=== PATIENT | female | born 1945 | race Caucasian/White ===

== ENCOUNTER 2022-05-09 09:08 | Outpatient (RCR) | payer MEDICARE, SELFPAY ==
--- NOTE | 2022-05-09 14:54 | PT.OPEX ---
PT [place] Outpatient Eval PT [facility] Outpatient Eval Start: 05/09/22 12:56 Freq: Status: Active Protocol: Document 05/09/22 12:56 CASTILLO (Rec: 05/09/22 13:07 CASTILLO [id number]) E-signed By RAY CoburnT Physical Therapy Outpatient Evaluation Insurance Information Recert Due Date 08/07/22 Insurance Name Medicare B,Blue Cross/Blue Shield Medical Diagnosis L knee OA L TKA 05/16/22 Treating Diagnosis L knee pain, impaired L knee ROM, limited tolerance for extended standing/walking, limping/antalgic gait Referring MD Wesley Subjective Subjective Patient reports chronic L knee pain leading up to L TKA scheduled for next week, . Patient reports standing, walking, activities are limited by pain. She has hx of bilateral knee scopes years ago. Lives along in a rambler home in [place]. 2 stairs to enter from the garage, no railing. Once inside, patient able to stay on main level. She will have her son stay with her the first night after d/c home and then a REQUIREMENTS ANALYST friend will be able to stay and help the next night. Currently planning to have her OP PT here in [facility] but that may change. Date of Last Physician Visit 03/30/22 Date of Surgery (If applicable) 05/16/22 Current Work Status Retired Assessment Assessment/Impression Patient is a 76 year old female with L knee pain, impaired L knee ROM, limited tolerance for extended standing/walking, limping/ antalgic gait. She is scheduled for L TKA 05/16/22. Patient seen in PT today for pre-op session to provide education/information on upcoming TKA surgery, safety information/HO, equipment instruction including use of FWW, and instruction in TKA exercises. Handouts issued for exercises, patient to perform them leading up to surgery. Reviewed PT/OT plan during hospital stay and patient is scheduled for OP PT post op. She lives in [place] and may change her post op PT to closer to home - currently scheduled here in [facility]. Patient lives in a rambler home. 2 stairs to enter from the garage, no railing. Once inside, patient can stay on the main level. Patient has a raised toilet seat, commode, shower chair, cane, and will borrow a FWW. She will have her son and a friend to stay with her the first few nights after surgery. L knee ROM is limited with 0-10-105 degrees this session. Patient to start doing the TKA exercises prior to surgery, HOs issued today. Patient would benefit from skilled PT for pain/sx management, improved knee ROM, improved knee/LE mobility/ strength, improved gait, balance/proprioception training, and establishment of HEP. Plan of Care Rehabilitation Potential Good Physical Therapy Goals 1. Patient will be educated in TKA pre/post-op safety, mobility, and exercises with HOs provided within one visit with patient returning to PT for post op treatment after L TKA surgery on 06/19/21. PT goals will be updated to TKA rehab goals when patient returns post op. Coordination/Communication With Referral Source Treatment Plan/Direct Interventions Gait Training,Manual Therapy, Neuromuscular Re-ed, Therapeutic Exercises Frequency/Duration one pre-op session 2x/week post TKA Patient Will Be Discharged From Therapy Completion of LTG(s),Skills Plateau,Independent w/HEP, Independently Progressing Evaluation Billing Untimed Code Treatment Minutes 36 Complexity Moderate Certification Information Initial Certification Date 05/09/22 Ending Certification Date 08/07/22 Provider Signature Shows Agreement With POC & Medical Necessity Physician Signature & Date Requested Please Sign/Date Here Physician Comment/Change : Physician NPI Number #
== END 2022-07-06 11:14 | disposition home or self-care (01) ==
PROVIDERS: PCP Orthopaedic Surgery Sports Medicine; Visit Provider Orthopaedic Surgery Sports Medicine
DX: M25.562 Pain in left knee (principal); Z96.652 Presence of left artificial knee joint; Z51.89 Encounter for other specified aftercare
CPT/HCPCS: 97162

== ENCOUNTER 2022-05-16 10:09 | Day surgery (SDC) | payer MEDICARE, SELFPAY ==
[2022-05-16] VITALS (37 sets, daily range): BP systolic 113–165; BP diastolic 55–100; PULSE 51–82; RESP 16–20; TEMP 36.3–37.2; O2SAT 73–100; BMI 34.7
[2022-05-16] MEDS: ACETAMINOPHEN 500 MG TABLET 1000 MG PO ×2 (10:40→17:57)
[2022-05-16] MEDS: OXYCODONE (CR) 10 MG TAB.ER.12H PO (10:40)
[2022-05-16] MEDS: LACTATED RINGERS 1000 ML 1,000 ML 100 ML IV (10:40)
[2022-05-16] MEDS: SODIUM CHLORIDE 0.9 % (FLUSH) 10 ML SYRINGE IVF (10:40)
[2022-05-16] MEDS: CELECOXIB 200 MG CAPSULE PO ×2 (10:40→21:05)
[2022-05-16] MEDS: MIDAZOLAM HCL 1 MG/ML inj IVP (12:02)
[2022-05-16] MEDS: fentaNYL 100 MCG/2 ML inj IVP (12:02)
--- NOTE | 2022-05-16 12:13 | SUR.PREOP ---
TIME?OUT:?1200 PT/Radha HENRIQUEZ RN/Mark Anthony RODRIGUEZ CUSTOMER SUPPORT ADVISOR?VERIFICATION?OF?SURGICAL?SITE,?PROCEDURE,?AND?CONSENT OBTAINED?PRIOR?TO?INVASIVE?PROCEDURE.
--- NOTE | 2022-05-16 13:11 | W.PM.NB ---
Nerve Block Nerve Block Time Seen by Provider: 12:00 Date Seen: 05/16/22 Type of block requested by surgeon for post-operative analgesia: geniculars and adductor canal Side: left Time out performed: Yes Verification of patient name: Yes Verification of date of : Yes Site marking: site marked Name of person performing procedure: gertrudis Continuous monitoring Was continuous monitoring of O2 sat, B/P, cardiac monitor technician, recorded every 15 minutes?: Yes Procedure Checklist: sterile prep, needles and gloves Ultrasound guided. Images saved: Yes Medications given in 5ml increments after negative aspiration: Ropivicaine %: 0.5 mL: 30 Needle gauge: 20 Decadron (mg): 10 Precedex (mcg): 25 Patient tolerated procedure well: Yes Block Charges Block Charge (with Pro Fee): Femoral Nerve Use of Ultrasound Machine for Block: Yes- US Guidance/pain block
--- NOTE | 2022-05-16 13:18 | CRLHL7_ITS ---
For Patients: As a result of the Cures Act, medical imaging exams and procedure reports are released immediately into your electronic medical record. You may view this report before your referring provider. If you have questions, please contact your health care provider. INDICATION: Post operative total knee arthroplasty TECHNIQUE: Knee radiograph 2 views left COMPARISON: 01/24/2021 FINDINGS: Bone: No acute fractures or aggressive bone lesions are identified. Joint: The patient is status post a total knee arthroplasty with patellar resurfacing. No significant knee effusion is seen. Soft tissue: Anterior skin, subcutaneous gas and joint gas are present from recent surgery. No radiopaque foreign bodies are seen. IMPRESSION: 1. There is an unremarkable postoperative appearance of the knee arthroplasty. Dictated by: Jun Torres MD @ 05/17/2022 13:00:55 (Electronically Signed)
--- NOTE | 2022-05-16 13:50 | SUR.OPER ---
Cement approved by MARY.
--- NOTE | 2022-05-16 14:35 | P.ORPRC_ITS ---
Procedure Note Date of procedure: 05/16/22 Procedure: PREOPERATIVE DIAGNOSIS: 1. Left knee osteoarthritis, primary, severe POSTOPERATIVE DIAGNOSIS: 1. Left knee osteoarthritis, primary, severe PROCEDURE: 1. Left total knee arthroplasty SURGEON: Clayton Olson MD. HUMAN RESOURCES FILE CLERK: Meño MCCRARY - Of note, a skilled expanded duty dental assistant was critical for this case to aid in patient positioning, tissue retraction, limb manipulation/positioning, and closure. ANESTHESIA: Mahamed anesthetic EBL: 50ml IMPLANTS: DePuy J&J all cemented TKA - Attune PS femur size 4 narrow, size 3 tibia, 5 poly spacer, 35 mm patella TOURNIQUET: 90 min at 300 torr COMPLICATIONS: None evident INDICATIONS: The patient is a pleasant 76-year-old female who has experienced severe left knee pain and difficulty bearing weight. Workup included x-rays which revealed severe osteoarthrosis in the knee. Given the deformity, the dysfunction, and the pain, as well as the failure of nonoperative management, recommendation was made for surgery. FINDINGS: Full-thickness chondral loss throughout all 3 compartments with large osteophytes, large posterior osteophytes, and even some loose bodies. Large effusion noted as well. DESCRIPTION OF PROCEDURE: Following a thorough discussion of risks, benefits, and alternatives consent was obtained and the left knee was marked. The patient was brought to the operating room and placed supine on the operating table. Induction of anesthesia was undertaken. 1 g IV Ancef and 1 g tranexamic acid was administered within 1 hr of incision preoperatively. Proper time-out was performed identifying proper patient, site, procedure. The operative extremity was prepped and draped in the appropriate sterile fashion using ChloraPrep after the patient was positioned supine with all bony prominences well padded. A longitudinal, anterior, midline skin incision was made starting approximately 3cm proximal to the superior pole of the patella and advanced distal to the tibial tubercle. A median parapatellar arthrotomy was created. A medial subp eriosteal sleeve was created with knife, allen elevator and curved osteotome. The retropatellar fatpad was resected and the synovium in the suprapatellar pouch excised to visualize the anterior femoral cortex. Femoral preparation was performed via an intramedullary guide. Step drill allowed access into the femoral canal. The distal cutting guide was placed with 6 ? of valgus and 11 mm cut on the distal femur due to flexion contracture of 10-12 degrees. Femur was sized using a anterior referencing guide in 3? of external rotation. This found have a best fit with the sizing noted above. The 4 in 1 cutting block was then placed, and the distal femur shaped accordingly. The box cut was then created and the trial implant inserted to confirm appropriate fit. We turned our attention to the proximal tibia. Extramedullary guide was utilized for cutting with the goal of being 90 degree cut from the mechanical axis of the tibia in the varus/valgus plane utilizing tibial crest as the luís zeenat alignment. Initially a 2 mm resection was performed from the medial tibial plateau. Ultimately, balancing was achieved in both flexion and extension in both varus and valgus. The knee was able to achieve full extension as well comfortably. The patella was initially measured and found have a thickness of 23 mm. It was resected back to approximately 14.5 mm. It was sized to be a best fit with as noted above. This was drilled, trial placed. All trials were placed and found to have an excellent stability and balance. At this stage, trial implants were removed, the knee was thoroughly irrigated with normal saline, and the cement was mixed. After irrigation, the knee was thoroughly dried, and cement placed, with the real tibial and femoral implants placed along with the patella. Trial poly spacer was placed and confirmed to have excellent range of motion and full extension, and the real poly spacer opened and inserted. All extra cement was removed, and a 3 min Betadine soak per formed. Finally, a final irrigation round with normal saline was performed. Closure performed with 0 PDS and #0 Stratafix for the quad tendon/retinaculum. 2-0 Vicryl/Stratafix for the subcutaneous and 4-0 Monocryl for subcuticular closure. Dressings were applied and the patient was awoken from anesthesia after the tourniquet deflated and transferred the PACU in stable condition. A skilled expanded duty dental assistant was critical for this case to aid in patient positioning, tissue retraction, bone exposure, limb manipulation/positioning, patient safety, and closure. PLAN: 1. Weight bear as tolerated operative extremity. 2. 23 hr perioperative antibiotics. 3. Ice. 4. PT/OT consults for ambulation assistance/mobility education. 5. Social work consult for discharge planning. 6. DVT prophylaxis with at SCDs, Ryan Hose, and aspirin twice daily.
--- NOTE | 2022-05-16 15:38 | W.ANESCHARGE ---
Anesthesia Charges Start Date/Time Anesthesia Start Date: 05/16/22 Anesthesia Start Time: 12:58 Stop Date/Time Anesthesia Stop Date: 05/16/22 Anesthesia Stop Time: 15:26 Summary Emergency: No Extremes of Age: Over 71-CPT [id number]
[2022-05-16] MEDS: LACTATED RINGERS 1000 ML 1,000 ML 75 ML IV (17:57)
--- NOTE | 2022-05-16 18:12 | P.IMCN_ITS ---
Date of Consult Consult date: 05/16/22 Primary Care Provider: Not a Local Provider Consult Narrative Narrative: HOSPITALIST CONSULT Hospital Day # 1 Post Op Day # 0 PROCEDURE: 1.? Left total knee arthroplasty SURGEON:? Clayton Olson MD. EBL: ? 50ml IMPLANTS:? DePuy J&J all cemented TKA - Attune TOURNIQUET:? 90 min at 300 torr COMPLICATIONS:? None evident The hospital medicine team was asked by Orthopedic team to manage the patient's hypertension and obesity status post left knee replacement There have been no perioperative concerns or questions. Patient is comfortable and interviewed and examined in her room on the evening of 05/16/2022. Patient denies any chest pain or palpitations. She is not short of breath. She is eating her dinner. We visited about her history working for [employer] and other aspects of her medical history. I updated the [facility] histories and Medications and Allergies in the Expanse tabs REVIEW OF SYSTEMS: 12-point ROS completed with patient and negative unless otherwise stated in HPI or below. PHYSICAL EXAM: CODE STATUS: FULL CODE CONSTITUTIONAL: Conversive, good historian. A/O. Knows setting and context. VITAL SIGNS: see record. HEENT: Normocephalic, atraumatic. PERRL, EOMI, conjunctivae pink, no scleral icterus. Ears and nose externally normal. Pharynx normal. NECK: No JVD. No carotid bruit, no thyromegaly, no adenopathy. CHEST: Clear to auscultation bilaterally HEART: No harsh murmurs. S1/S2. ABDOMEN: Flat, soft, nontender. Normal bowel sounds. Moderately obese. EXTREMITIES: No edema. MUSCULOSKELETAL: Left knee surgical dressing in place. No obvious hematoma. Neurovascularly intact. NEURO: Cranial nerves intact. Normal affect. No gross deficits. Speech intelligible. SKIN: No rashes, petechiae, concerning changes PSYCHIATRIC: Euthymic. INVESTIGATIONS: EMR Reviewed DISPOSITION: MedSurg Recovery; Discharge tomorrow DVT: Agree with ortho plan for DVT prevention, aspirin 81 mg b.i.d. GI: PO intake [facility] Medical History Hyperlipidemia Hypertension Obesity Osteoarthritis of left knee Osteopenia Surgical History History of breast biopsy History of medial meniscus repair of left knee (12/04/00) History of tubal ligation Status post medial meniscectomy of right knee (03/29/05) Status post total knee replacement, left Family History Sister Diabetes Cancer Mother Cancer Social History Smoking Status: Never smoker Do you use any of these nicotine containing products: None How often do you have a drink containing alcohol: monthly or less Alcohol type: wine How many standard drinks containing alcohol do you have on a typical day: 1 or 2 How often do you have six or more drinks on one occasion: Never AUDIT-C Alcohol total score: 1 Non-prescribed substance use: denies use Caffeine: Yes (coffee 2-3/day) Are you using contraception or practicing any form of control: No Meds Home Medications and Allergies Home Medications Medication Instructions Recorded Confirmed Type lisinopril 20 1 tab PO DAILY 03/30/22 05/16/22 History mg-hydrochlorothiazide 12.5 mg tablet naproxen 250 mg tablet 250 mg PO BID 05/07/22 05/16/22 History Allergies Allergy/AdvReac Type Severity Reaction Status Date / Time Penicillins Allergy throat Verified 05/16/22 10:44 swelling Exam Const: Vital Signs, click to edit/add: Vital Signs - 24 hr 05/16/22 10:45 05/16/22 12:01 05/16/22 12:05 Temperature 97.9 F Pulse Rate 71 57 L 57 L Respiratory Rate 18 16 16 Blood Pressure 160/78 H 142/68 H 124/58 L Pulse Oximetry 97 98 100 Oxygen Delivery Me thod Room Air Nasal Cannula Nasal Cannula Oxygen Flow Rate 2 2 05/16/22 12:10 05/16/22 12:15 05/16/22 15:34 Temperature 97.6 F Pulse Rate 61 56 L Respiratory Rate 16 16 Blood Pressure 119/69 113/55 L Pulse Oximetry 99 99 Oxygen Delivery Me thod Nasal Cannula Nasal Cannula Oxygen Flow Rate 2 2 05/16/22 15:43 05/16/22 15:53 05/16/22 15:25 Temperature 98.6 F 99.0 F Pulse Rate Respiratory Rate Blood Pressure 165/91 H Pulse Oximetry Oxygen Delivery Me thod Room Air Oxygen Flow Rate 05/16/22 15:28 05/16/22 15:30 05/16/22 15:31 Temperature Pulse Rate 82 77 77 Respiratory Rate Blood Pressure 138/100 H Pulse Oximetry 73 L 94 95 Oxygen Delivery Me thod Oxygen Flow Rate 05/16/22 15:32 05/16/22 15:33 05/16/22 15:34 Temperature Pulse Rate 67 72 71 Respiratory Rate Blood Pressure 131/100 H Pulse Oximetry 96 93 98 Oxygen Delivery Me thod Oxygen Flow Rate 05/16/22 15:36 05/16/22 15:38 05/16/22 15:39 Temperature Pulse Rate 68 70 69 Respiratory Rate Blood Pressure 133/86 Pulse Oximetry 97 98 98 Oxygen Delivery Me thod Oxygen Flow Rate 05/16/22 15:40 05/16/22 15:42 05/16/22 15:43 Temperature Pulse Rate 67 64 68 Respiratory Rate Blood Pressure 140/86 H Pulse Oximetry 97 97 98 Oxygen Delivery Me thod Oxygen Flow Rate 05/16/22 15:44 05/16/22 15:46 05/16/22 15:48 Temperature Pulse Rate 63 62 55 L Respiratory Rate Blood Pressure 136/89 Pulse Oximetry 98 98 96 Oxygen Delivery Me thod Oxygen Flow Rate 05/16/22 15:49 05/16/22 15:50 05/16/22 15:52 Temperature Pulse Rate 51 L 58 L 56 L Respiratory Rate Blood Pressure Pulse Oximetry 97 97 98 Oxygen Delivery Me thod Oxygen Flow Rate 05/16/22 15:53 Temperature 99.0 F Pulse Rate 58 L Respiratory Rate Blood Pressure 141/81 H Pulse Oximetry 98 Oxygen Delivery Me thod Oxygen Flow Rate Assessment and Plan Assessment and plan (1) Status post total knee replacement, left: Problem comment: -hospital medicine team is happy to follow this patient through to discharge. There been no perioperative concerns or complications. I suspect a routine postoperative course with discharge tomorrow. I reviewed the DVT prophylaxis plan and him in agreement. I will likely hold her hypertensive meds which can be resume once she is home. May 2022 Status: Acute (2) Hypertension: Problem comment: Lisinopril hydrochlorothiazide - will hold her meds unless hypertensive Status: Acute (3) Osteoarthritis of left knee: Problem comment: severe, primary Status: Acute
[2022-05-16] MEDS: OXYCODONE 5 MG TABLET PO ×2 (19:25→21:04)
[2022-05-16] MEDS: SENNOSIDES 1 TAB TABLET 2 TAB PO (21:03)
[2022-05-16] MEDS: ASPIRIN 81 MG TABLET EC PO (21:03)
--- NOTE | 2022-05-16 22:29 | PC.NURSE ---
Patient to floor at 1600. Rates pain 1-07/20. PRN Oxycodone for relief. Cryocuff in place. CMS intact. Dressing to L. knee C/D/I. Tolerating regular diet. Denies N/V. A1/walker/GB.
[2022-05-17] MEDS: ACETAMINOPHEN 500 MG TABLET 1000 MG PO ×3 (00:18→11:46)
[2022-05-17 03:00] VITALS: BP 127/61; PULSE 77; RESP 18; TEMP 36.6; O2SAT 100
--- NOTE | 2022-05-17 06:58 | PC.NURSE ---
Shift note: Pt, post op day 1 is doing well. Tolerating liberal fluid very well. No N/V noted. Able to make about 600ml of urine this shift. Ambulate with A1 to and from the BR. Pt tolerating pain very, pain level has been rated between 1 and 4. No PRN med requested. Vitally stable. Pt able to pass gas this morning.
[2022-05-17 07:00] VITALS: BP 130/60; PULSE 65; RESP 16; TEMP 36.2; O2SAT 100
[2022-05-17 07:07] LABS: Hematocrit 38.1 % (33.0-51.0); Hemoglobin* 12.3 gm/dL (12.0-16.0); Immature Granulocytes Pct Auto 0.3 %; Lymphocytes Percent Auto 12.5 % (20-44); Mean Corpuscular HGB Conc 32 gm/dL (32-36); Mean Corpuscular Hemoglobin 30 pg (26-34); Mean Corpuscular Volume 94 fL (80-100); Monocytes Percent Auto 7.2 % (0.0-11.0); Platelet Count* 175 K/uL (140-440); RDW Coefficient of Variation % 13.5 % (11.5-15.5); Red Blood Count 4.06 m/uL (4.00-5.20); White Blood Count* 11.19 K/uL (4.50-11.00)
[2022-05-17 07:12] LABS: Slide Review Reflex No
[2022-05-17 07:21] LABS: Potassium* 4.2 mmol/L (3.6-5.1); Sodium* 139 mmol/L (135-149)
[2022-05-17 07:24] LABS: Blood Urea Nitrogen* 21 mg/dL (7-30); Creatinine* 0.7 mg/dL (0.5-1.5); Est. Creatinine Clearance* 38.44; Estimated Glomerular Filt Rate 90 ml/min
[2022-05-17] MEDS: CELECOXIB 200 MG CAPSULE PO (08:18)
[2022-05-17] MEDS: SENNOSIDES 1 TAB TABLET 2 TAB PO (08:18)
[2022-05-17] MEDS: OXYCODONE 5 MG TABLET PO ×2 (08:18→13:20)
[2022-05-17] MEDS: ASPIRIN 81 MG TABLET EC PO (08:18)
[2022-05-17] MEDS: SODIUM CHLORIDE 0.9 % (FLUSH) 10 ML SYRINGE 5 ML IVF (08:19)
[2022-05-17 10:55] VITALS: BP 141/81; PULSE 56; RESP 16; TEMP 36.2
--- NOTE | 2022-05-17 11:08 | PM.ORPN ---
Subjective Subjective Date Seen: 05/17/22 Principal diagnosis: Status postop day 1 left total knee arthroplasty Interval history: Patient reports doing well. No acute events over night. Reports that her pain is not bad at all. Pain managed with scheduled /PRN medications and ice. DVT prophylaxis 81 mg aspirin by mouth twice daily, bilateral knee high Ryan stockings, and SCDs. Denies fevers, chills, aches, N/V, CP, SOB/FRANKS, or lightheadedness. She reports having a good appetite. She is surprised how good her appetite is as well as how little pain she is experiencing. Ortho Exam Narrative Exam Narrative: -Patient appears comfortable; no apparent acute distress -Alert and oriented times 3 -Operative knee moderately swollen; soft tissues supple; no ecchymosis; no erythematous streaking Warmth appropriate -Surgical dressing clean, dry, intact; no drainage -Bilateral calfs soft; no significant swelling, edema, erythema, discoloration, warmth, or palpable cords. Slightly tender at the left mid posterior calf, not exquisite (tissues are soft and supple over this region) -2+ DP/PT pulses, intact dermatomes and myotomes distally (5/5 strength) Const Vital Signs, click to edit/add: Vital Signs - 24 hr 05/16/22 12:01 05/16/22 12:05 05/16/22 12:10 Temperature Pulse Rate 57 L 57 L 61 Pulse Rate [Pulse Oximeter] Respiratory Rate 16 16 16 Blood Pressure 142/68 H 124/58 L 119/69 Blood Pressure [Right Arm] Pulse Oximetry 98 100 99 Oxygen Delivery Method Nasal Cannula Nasal Cannula Nasal Cannula Oxygen Flow Rate 2 2 2 05/16/22 12:15 05/16/22 15:34 05/16/22 15:43 Temperature 97.6 F 98.6 F Pulse Rate 56 L Pulse Rate [Pulse Oximeter] Respiratory Rate 16 Blood Pressure 113/55 L Blood Pressure [Right Arm] Pulse Oximetry 99 Oxygen Delivery Method Nasal Cannula Room Air Oxygen Flow Rate 2 05/16/22 15:53 05/16/22 15:25 05/16/22 15:28 Temperature 99.0 F Pulse Rate 82 Pulse Rate [Pulse Oximeter] Respiratory Rate Blood Pressure 165/91 H Blood Pressure [Right Arm] Pulse Oximetry 73 L Oxygen Delivery Method Oxygen Flow Rate 05/16/22 15:30 05/16/22 15:31 05/16/22 15:32 Temperature Pulse Rate 77 77 67 Pulse Rate [Pulse Oximeter] Respiratory Rate Blood Pressure 138/100 H 131/100 H Blood Pressure [Right Arm] Pulse Oximetry 94 95 96 Oxygen Delivery Method Oxygen Flow Rate 05/16/22 15:33 05/16/22 15:34 05/16/22 15:36 Temperature Pulse Rate 72 71 68 Pulse Rate [Pulse Oximeter] Respiratory Rate Blood Pressure Blood Pressure [Right Arm] Pulse Oximetry 93 98 97 Oxygen Delivery Method Oxygen Flow Rate 05/16/22 15:38 05/16/22 15:39 05/16/22 15:40 Temperature Pulse Rate 70 69 67 Pulse Rate [Pulse Oximeter] Respiratory Rate Blood Pressure 133/86 Blood Pressure [Right Arm] Pulse Oximetry 98 98 97 Oxygen Delivery Method Oxygen Flow Rate 05/16/22 15:42 05/16/22 15:43 05/16/22 15:44 Temperature Pulse Rate 64 68 63 Pulse Rate [Pulse Oximeter] Respiratory Rate Blood Pressure 140/86 H Blood Pressure [Right Arm] Pulse Oximetry 97 98 98 Oxygen Delivery Method Oxygen Flow Rate 05/16/22 15:46 05/16/22 15:48 05/16/22 15:49 Temperature Pulse Rate 62 55 L 51 L Pulse Rate [Pulse Oximeter] Respiratory Rate Blood Pressure 136/89 Blood Pressure [Right Arm] Pulse Oximetry 98 96 97 Oxygen Delivery Method Oxygen Flow Rate 05/16/22 15:50 05/16/22 15:52 05/16/22 15:53 Temperature 99.0 F Pulse Rate 58 L 56 L 58 L Pulse Rate [Pulse Oximeter] Respiratory Rate Blood Pressure 141/81 H Blood Pressure [Right Arm] Pulse Oximetry 97 98 98 Oxygen Delivery Method Oxygen Flow Rate 05/16/22 16:45 05/16/22 16:00 05/16/22 16:15 Temperature 97.4 F L 97.4 F L 97.4 F L Pulse Rate 56 L Pulse Rate [Pulse Oximeter] 56 L 53 L Respiratory Rate 16 16 18 Blood Pressure Blood Pressure [Right Arm] 132/85 132/85 125/62 Pulse Oximetry 98 99 Oxygen Delivery Method Room Air Room Air Room Air Oxygen Flow Rate 05/16/22 16:30 05/16/22 16:45 05/16/22 17:00 Temperature 97.4 F L 97.6 F 97.6 F Pulse Rate Pulse Rate [Pulse Oximeter] 52 L 57 L 56 L Respiratory Rate 18 18 16 Blood Pressure Blood Pressure [Right Arm] 127/61 133/79 136/60 Pulse Oximetry 96 99 99 Oxygen Delivery Method Room Air Room Air Room Air Oxygen Flow Rate 2 05/16/22 17:30 05/16/22 18:00 05/16/22 19:00 Temperature 97.6 F 97.6 F 97.6 F Pulse Rate Pulse Rate [Pulse Oximeter] 62 63 69 Respiratory Rate 16 16 18 Blood Pressure Blood Pressure [Right Arm] 129/61 129/74 142/75 H Pulse Oximetry 100 100 100 Oxygen Delivery Method Room Air Room Air Room Air Oxygen Flow Rate 05/16/22 20:00 05/16/22 21:00 05/16/22 22:00 Temperature 97.6 F 98.0 F 98.0 F Pulse Rate Pulse Rate [Pulse Oximeter] 69 71 73 Respiratory Rate 16 20 18 Blood Pressure Blood Pressure [Right Arm] 132/78 126/77 129/61 Pulse Oximetry 98 100 100 Oxygen Delivery Method Room Air Room Air Room Air Oxygen Flow Rate 05/16/22 23:00 05/16/22 23:00 05/17/22 03:00 Temperature 97.5 F L 97.9 F Pulse Rate Pulse Rate [Pulse Oximeter] 77 77 Respiratory Rate 18 18 Blood Pressure Blood Pressure [Right Arm] 127/61 127/61 Pulse Oximetry 100 100 100 Oxygen Delivery Method Room Air Room Air Oxygen Flow Rate 05/17/22 07:00 05/17/22 07:00 05/17/22 10:55 Temperature 97.2 F L 97.2 F L Pulse Rate 56 L Pulse Rate [Pulse Oximeter] 65 Respiratory Rate 16 16 Blood Pressure 141/81 H Blood Pressure [Right Arm] 130/60 Pulse Oximetry 100 100 Oxygen Delivery Method Room Air Oxygen Flow Rate Assessment and Plan Assessment and plan (1) Status post total knee replacement, left: Problem details: POD 1 left total knee arthroplasty Status: Acute (2) Hypertension: Problem details: Lisinopril hydrochlorothiazide - will hold her meds unless hypertensive Status: Acute (3) Osteoarthritis of left knee: Problem details: severe, primary Status: Acute Plan - Complete 23 hour perioperative antibiotics. - PT/OT consult for education and assistance. - Social work consult for discharge planning - Prescribed analgesics as needed - DVT prophylaxis: 81 mg aspirin by mouth twice daily, bilateral knee high Ryan Hose stockings and SCDs - Anticipation is for discharge to home 05/17/2022 if the patient remains medically stable, pain is controlled, and they are safe with mobilization.
--- NOTE | 2022-05-17 11:12 | P.DS_ITS ---
DS: Providers Provider Date Seen: 05/17/22 Date of admission: Med/Surg Recovery 05/16/2022 Primary care physician: Not a Local Provider Consults: 05/16/22 16:37 Consult to Occupational Therapy [CONS] Routine Comment: Reason(s) for OT Consult:: ADLs Prior to Discharge Any Restrictions?:: See Comment Comment: See nursing activity order for any restrictions. Consult to Physical Therapy [CONS] Routine Comment: Ambulate in the albert today. Reason(s) for PT Consult:: TKA TX Protocol POD#0 Any Restrictions?:: See Comment Comment: See nursing activity order for any restrictions. Consult to Physician [CONS] Routine Comment: Consulting Provider: Hospitalists Has provider been notified: No Consult to Magnetic Healer [CONS] Routine Comment: Reason for Consult:: Discharge Planning Needs Attending Physician on discharge: Clayton Olson MD Date of Discharge: 05/17/22 DS: Diagnosis Discharge Diagnosis (1) Osteoarthritis of left knee: Status: Acute Problem details: Status postoperative left total knee arthroplasty (05/16/2022) DS: Summary Hospital Course Hospital Course: The patient has a history of left knee osteoarthritis, primary, severe. After appropriate preoperative evaluation, the patient underwent left total knee arthroplasty. Postoperatively given anticoagulation for deep vein thrombosis prophylaxis. They progressed to PT/OT and were felt ready and prepared for discharge to home with appropriate pain medication and anticoagulation medicat ions. Status at Discharge Functional status at discharge: uses cane/walker Overall status at discharge: patient is progressing back to baseline Time Spent with Patient Time attestation: Total time spent providing and/or coordinating discharge services: Time spent: Less than 30 minutes Exam Const: Vital Signs, click to edit/add: Vital Signs - 24 hr 05/16/22 12:01 05/16/22 12:05 05/16/22 12:10 Temperature Pulse Rate 57 L 57 L 61 Pulse Rate [Pulse Oximeter] Respiratory Rate 16 16 16 Blood Pressure 142/68 H 124/58 L 119/69 Blood Pressure [Ri ght Arm] Pulse Oximetry 98 100 99 Oxygen Delivery Me thod Nasal Cannula Nasal Cannula Nasal Cannula Oxygen Flow Rate 2 2 2 05/16/22 12:15 05/16/22 15:34 05/16/22 15:43 Temperature 97.6 F 98.6 F Pulse Rate 56 L Pulse Rate [Pulse Oximeter] Respiratory Rate 16 Blood Pressure 113/55 L Blood Pressure [Ri ght Arm] Pulse Oximetry 99 Oxygen Delivery Me thod Nasal Cannula Room Air Oxygen Flow Rate 2 05/16/22 15:53 05/16/22 15:25 05/16/22 15:28 Temperature 99.0 F Pulse Rate 82 Pulse Rate [Pulse Oximeter] Respiratory Rate Blood Pressure 165/91 H Blood Pressure [Ri ght Arm] Pulse Oximetry 73 L Oxygen Delivery Me thod Oxygen Flow Rate 05/16/22 15:30 05/16/22 15:31 05/16/22 15:32 Temperature Pulse Rate 77 77 67 Pulse Rate [Pulse Oximeter] Respiratory Rate Blood Pressure 138/100 H 131/100 H Blood Pressure [Ri ght Arm] Pulse Oximetry 94 95 96 Oxygen Delivery Me thod Oxygen Flow Rate 05/16/22 15:33 05/16/22 15:34 05/16/22 15:36 Temperature Pulse Rate 72 71 68 Pulse Rate [Pulse Oximeter] Respiratory Rate Blood Pressure Blood Pressure [Ri ght Arm] Pulse Oximetry 93 98 97 Oxygen Delivery Me thod Oxygen Flow Rate 05/16/22 15:38 05/16/22 15:39 05/16/22 15:40 Temperature Pulse Rate 70 69 67 Pulse Rate [Pulse Oximeter] Respiratory Rate Blood Pressure 133/86 Blood Pressure [Ri ght Arm] Pulse Oximetry 98 98 97 Oxygen Delivery Me thod Oxygen Flow Rate 05/16/22 15:42 05/16/22 15:43 05/16/22 15:44 Temperature Pulse Rate 64 68 63 Pulse Rate [Pulse Oximeter] Respiratory Rate Blood Pressure 140/86 H Blood Pressure [Ri ght Arm] Pulse Oximetry 97 98 98 Oxygen Delivery Me thod Oxygen Flow Rate 05/16/22 15:46 05/16/22 15:48 05/16/22 15:49 Temperature Pulse Rate 62 55 L 51 L Pulse Rate [Pulse Oximeter] Respiratory Rate Blood Pressure 136/89 Blood Pressure [Ri ght Arm] Pulse Oximetry 98 96 97 Oxygen Delivery Me thod Oxygen Flow Rate 05/16/22 15:50 05/16/22 15:52 05/16/22 15:53 Temperature 99.0 F Pulse Rate 58 L 56 L 58 L Pulse Rate [Pulse Oximeter] Respiratory Rate Blood Pressure 141/81 H Blood Pressure [Ri ght Arm] Pulse Oximetry 97 98 98 Oxygen Delivery Me thod Oxygen Flow Rate 05/16/22 16:45 05/16/22 16:00 05/16/22 16:15 Temperature 97.4 F L 97.4 F L 97.4 F L Pulse Rate 56 L Pulse Rate [Pulse Oximeter] 56 L 53 L Respiratory Rate 16 16 18 Blood Pressure Blood Pressure [Ri ght Arm] 132/85 132/85 125/62 Pulse Oximetry 98 99 Oxygen Delivery Me thod Room Air Room Air Room Air Oxygen Flow Rate 05/16/22 16:30 05/16/22 16:45 05/16/22 17:00 Temperature 97.4 F L 97.6 F 97.6 F Pulse Rate Pulse Rate [Pulse Oximeter] 52 L 57 L 56 L Respiratory Rate 18 18 16 Blood Pressure Blood Pressure [Ri ght Arm] 127/61 133/79 136/60 Pulse Oximetry 96 99 99 Oxygen Delivery Me thod Room Air Room Air Room Air Oxygen Flow Rate 2 05/16/22 17:30 05/16/22 18:00 05/16/22 19:00 Temperature 97.6 F 97.6 F 97.6 F Pulse Rate Pulse Rate [Pulse Oximeter] 62 63 69 Respiratory Rate 16 16 18 Blood Pressure Blood Pressure [Ri ght Arm] 129/61 129/74 142/75 H Pulse Oximetry 100 100 100 Oxygen Delivery Me thod Room Air Room Air Room Air Oxygen Flow Rate 05/16/22 20:00 05/16/22 21:00 05/16/22 22:00 Temperature 97.6 F 98.0 F 98.0 F Pulse Rate Pulse Rate [Pulse Oximeter] 69 71 73 Respiratory Rate 16 20 18 Blood Pressure Blood Pressure [Ri ght Arm] 132/78 126/77 129/61 Pulse Oximetry 98 100 100 Oxygen Delivery Me thod Room Air Room Air Room Air Oxygen Flow Rate 05/16/22 23:00 05/16/22 23:00 05/17/22 03:00 Temperature 97.5 F L 97.9 F Pulse Rate Pulse Rate [Pulse Oximeter] 77 77 Respiratory Rate 18 18 Blood Pressure Blood Pressure [Ri ght Arm] 127/61 127/61 Pulse Oximetry 100 100 100 Oxygen Delivery Me thod Room Air Room Air Oxygen Flow Rate 05/17/22 07:00 05/17/22 07:00 05/17/22 10:55 Temperature 97.2 F L 97.2 F L Pulse Rate 56 L Pulse Rate [Pulse Oximeter] 65 Respiratory Rate 16 16 Blood Pressure 141/81 H Blood Pressure [Ri ght Arm] 130/60 Pulse Oximetry 100 100 Oxygen Delivery Me thod Room Air Oxygen Flow Rate DS: Data Data Completed and Pending Labs on day of discharge: Labs from last 24 hours 05/17/22 05/17/22 06:25 06:25 WBC 11.19 H RBC 4.06 Hgb 12.3 Hct 38.1 MCV 94 MCH 30 MCHC 32 RDW Coeff of Gio 13.5 Plt Count 175 Neut % (Auto) 80.0 H Lymph % (Auto) 12.5 L [place] % (Auto) 7.2 Eos % (Auto) 0.0 Baso % (Auto) 0.0 Neut # (Auto) 9.00 H Lymph # (Auto) 1.40 [place] # (Auto) 0.80 Eos # (Auto) 0.00 Baso # (Auto) 0.00 Sodium 139 Potassium 4.2 BUN 21 Creatinine 0.7 Estimated Creat Clear 38.44 Estimated GFR 90 Discharge Plan Discharge Disposition: Home, Self-Care Discharging Surgeon: Clayton Olson Follow-Up Appointment: 1 week PO with HERMANN Prescriptions: New acetaminophen 500 mg capsule 500 - 1,000 mg PO Q6H MDD 4000mg PRNQty: 100 0RF aspirin 81 mg tablet,delayed release (DR/EC) 81 mg PO BID Qty: 60 0RF Rx Instructions: Medication to help prevent blood clots postoperatively; take TWICE daily. sennosides-docusate sodium [Senna-S] 8.6-50 mg tablet 1 - 4 tab-cap PO BID PRN (Reason: constipation) Qty: 60 0RF Rx Instructions: Hold medication if experiencing loose stools. celecoxib 100 mg capsule 100 mg PO BID Qty: 60 0RF oxycodone 5 mg tablet 2.5 - 5 mg PO Q4-6H MDD 6 PRN (Reason: pain) Qty: 42 0RF Rx Instructions: Take as needed for postop pain: 2.5mg mild pain, 5mg moderate-severe pain; wean as tolerated. Continued lisinopril-hydrochlorothiazide 20-12.5 mg tablet 1 tab PO DAILY Label Comments: TAKE 1 TABLET BY MOUTH DAILY. naproxen 250 mg tablet 250 mg PO BID Activity Level: Activity as Tolerated, Weight Bearing as Tolerated, Use Cane and Use Walker Activity Detail: Wound: ?Do not remove original dressing; we will remove this at first postop visit in 1 week. Only remove dressing if integrity is in question. ?No immersing wound in water; showering okay; light scrub with your hand and body soap, rinse, dab dry ?Sutures are under the skin, will dissolve; allow surgical glue to come off naturally; do not scrub the wound or apply ointments/lotions ?Call our office with any redness that streaks, excessive drainage from the wound, or wound gapping. Ice/Elevate: ?Ice as needed for swelling and discomfort (cryocuff or ice pack); elevate frequently above the heart MAGDA socks: ?Wear for 1 month, remove for 1 hour 3 times per day ?These are frustrating to take on/off, but are important for blood clot prevention for 1 month after surgery Blood Clot Prevention (DVT): ?Medication: 81 mg aspirin by mouth twice daily (1 month) Driving: ?Do not drive while taking narcotic pain medication ?Anticipate 4-6 weeks no driving if operative leg is driving leg Dental: ?No elective dental work for 6 months post-op. If there is an urgent/emergent dental need, contact our office for an antibiotic prescription. Smoking/Alcohol: ?Do not smoke; do no drink alcohol especially when taking postoperative oral narcotic medication Seek Care from you Primary Care Provider if you experience the following issues in the postoperative phase and beyond: ?Bacterial infections such as: pneumonia, bacterial skin infection (cellulitis), UTI, high fever, chills unrelated to the operative body part - call your primary care physician urgently for treatment in hopes to protect your health and the metal implant. Referrals: ?PT, OT per patient preference - evaluate treat total knee arthroplasty protocol (gait training, ROM, ADLs) Follow up: ?Ortho surgeon follow-up in 6 weeks; repeat radiographs three views operative knee ?PA-C visit in 1 week *If there are any acute concerns regarding your surgery, please call our orthopedic clinic ([phone]) Discharge Diet: Regular Patient Instructions: Acetaminophen (By mouth), Aspirin (By mouth), Oxycodone, Rapid Release (By mouth), Celecoxib (By mouth), Senna (By mouth), Knee Replacement (DC) Forms: Work/School Release Follow-up: Physical [facility]me[facility] [Provider Group] - 05/18/22 2:30 pm Mahamed Wilder PA-C [Physician [facility]] - 05/24/22 10:10 am Discharge Orders: Discharge Order (Routine); Ordered 05/17/22 Ordered By: Mahamed Wilder Consulting provider completed their portion of the discharge: Yes
--- NOTE | 2022-05-17 15:04 | PC.SOCIAL ---
Met with pt to discuss discharge plans. Pt. plans to discharge home with a friend who is a retired geophysical laboratory supervisor and she will stay with pt. until the weekend. Pt.'s son's will stay with pt. over the weekend and then her friend will come back for a few more days the following week.
--- NOTE | 2022-05-17 15:10 | W.PM.CROSSCO ---
Subjective Subjective Date Seen: 05/17/22 Principal diagnosis: Status postop day 1 left total knee arthroplasty Interval history: Patient noted flushing today; timing potentially related to vancomycin vs oxycodone administration. She has had no GI distress, no wheezing, no shortness of breath, no tongue edema. Vital signs have remained stable. She has worked well with therapies and not have any lightheadedness or dizziness. She has never had oxycodone nor vancomycin in the past. Objective Objective Data Details: Patient is sitting comfortably at edge of bed, she is speaking in full sentences. Oropharynx is moist and clear, tongue protrudes midline and is not edematous. Cardiovascular exam exhibits regular rate and rhythm without murmurs rubs or gallops. Lungs are clear to auscultation bilaterally had any wheezes or crackles. Skin reveals mild flushing of chest and face. Assessment and Plan Assessment and plan (1) Flushing: Problem comment: - Likely iatrogenic, oxycodone vs vancomycin - patient did not want to take a Benadryl prior to discharge; did send and Benadryl for her to have at home in case she notices persistent symptoms on oxycodone. She has actually had quite adequate pain control Tylenol and is unsure if she will even need oxycodone regularly upon discharge Status: Acute Plan - See above
--- NOTE | 2022-05-17 15:32 | PC.NURSE ---
PATIENT DISCHARGED TO HOME WITH FRIENDS, UP SBA WITH WALKER BELT TOLERATING FAIRLY, DRESSING TO LEFT KNEE CDI, CYRO CUFF TO SITE, RATING PAIN 0 AT REST IN LEFT KNEE BUT INCREASES WITH MOVEMENT, PRN OXYCODONE AND SCHEDULED TYLENOL GIVEN WITH RELIEF, THIS AFTERNOON AROUND 1400 PATIENT FLUSHED, FEELING WARM, NO TEMP NOTED, UPDATED SEE ORDERS, PATIENT VERBALIZED UNDERSTANDING OF DISCHARGE INFORMATION AND HAD NO FURTHER QUESTIONS AT THIS TIME, LEFT VIA WHEELCHAIR AROUND 1515.
--- NOTE | 2022-05-18 21:29 | PC.SOCIAL ---
Received a message from charge nurse that pt called requesting a phone call back because [facility] did not have the paperwork they needed to begin services. Phone call to [facility] at [phone]. Staff informed this worker that they did not receive a referral packet with home health care orders from a MD and stated they only received a discharge summary of what pt should do at home for after care. [facility] is requesting referral with MD order. Completed face to face and had MD sign. Faxed referral to [facility] at [phone]. Confirmed with [facility] that the referral was received. No further information is requested. Phone call to pt. Informed pt that this worker sent all information that was requested from [facility] and confirmed it was received, so services could begin. Pt was thankful.
== END 2022-05-17 15:15 | disposition home or self-care (01) ==
LOC: OR 10:12 → MEDSURG 10:15
PROVIDERS: PCP Orthopaedic Surgery Sports Medicine; Visit Provider Orthopaedic Surgery Sports Medicine
PROC: (CPT 27447; principal; 2022-05-16 11:30)
DX: M17.12 Unilateral primary osteoarthritis, left knee (principal); M25.562 Pain in left knee; I10 Essential (primary) hypertension; E66.9 Obesity, unspecified; R23.2 Flushing; M85.80 Other specified disorders of bone density and structure, unspecified site; Z68.34 Body mass index [BMI] 34.0-34.9, adult
CPT/HCPCS: 27447; 01402; 36415; 64447; 73560; 76942; 80202; 82565; 84132; 84295; 84520; 85025; 97110; 97116; 97161; 97165; 97530; 99100; A9270; C1776; J1100; J2250; J2704; J2795; J3010; J3370; J7050; J7120

== ENCOUNTER 2023-05-29 08:50 | Day surgery (SDC) | payer MEDICARE, SELFPAY ==
[2023-05-29] VITALS (14 sets, daily range): BP systolic 120–165; BP diastolic 60–90; PULSE 52–561; RESP 15–20; TEMP 36.2–36.6; O2SAT 92–97; BMI 33.5
--- OUTSIDE RECORDS SUMMARY | 2023-05-29 09:03 | XMS_ITS | Clinical Summary ---
Author Name Unknown Organization [email or web address] Address [place], [place] [address] Care Team Providers Care Edge Sander Name Role Phone Jessica Trejo PA-C Primary Care Provider [phone] Allergies Active Allergy Reactions Criticality Noted Date Comments Penicillins Anaphylaxis High 01/10/2012 Medications Medication Sig Dispensed Refills Start Date End Date Status benzonatate (TESSALON) 100 mg capsuleIndications:B ronchitis Take 1 capsule by mouth 3 times daily if needed for Cough. 20 capsule 0 07/05/2019 Active Encounters Date Type Department Care Team Description 05/14/2023 5:12 PM CUT OFF MACHINE OPERATOR - 05/14/2023 9:45 PM CUT OFF MACHINE OPERATOR Emergency [address] [address] Joel Reeves MD Transient memory loss (Primary Dx); Vertigo Discharge Disposition: Home Self Care 05/14/2023 Travel from Last 3 Months Social History Tobacco Use Types Packs/Day Years Used Date Smoking Tobacco: Never Alcohol Use Standard Drinks/Week Comments Yes 0 (1 standard drink = 0.6 oz pur e alcohol) 1 every 6 months Sex and Gender Information Value Date Recorded Sex Assigned at Not on file Gender Identity Not on file Sexual Orientation Not on file Obstetrics History Last Filed Vital Signs Vital Sign Reading Time Taken Comments Blood Pressure 131/82 05/14/2023 9:20 PM CUT OFF MACHINE OPERATOR Pulse 59 05/14/2023 9:29 PM CUT OFF MACHINE OPERATOR Temperature 36.6 ??C (97.8 ??F) 05/14/2023 5:07 PM CS T Respiratory Rate 18 05/14/2023 5:07 PM CUT OFF MACHINE OPERATOR Oxygen Saturation 98% 05/14/2023 9:29 PM CUT OFF MACHINE OPERATOR Inhaled Oxygen Concentration - - Weight 77.1 kg (170 lb) 05/14/2023 5:07 PM CUT OFF MACHINE OPERATOR Height 157.5 cm (5' 2) 05/14/2023 5:07 PM CUT OFF MACHINE OPERATOR Body Mass Index 31.09 05/14/2023 5:07 PM CUT OFF MACHINE OPERATOR Plan of Treatment Health Maintenance Due Date Last Done Comments Tdap 1957 Depression screening for age 12+ 1958 Hepatitis C screening for ag e 18-79 1964 Tetanus booster 1966 Zoster (shingles) series for age 50+ (1 of 2) 1996 DEXA/DXA scan for age 65+ 08/15/2011 Pneumococcal series for age 65+ (1 of 1 - PCV) 08/15/2011 BMI (ht and wt on same day) for age 18+ 02/05/2017 02/06/2016 Influenza for age 65+ 01/11/2023 COVID-19 vaccine series Completed 03/07/20 23, 03/14/2022, 09/07/2021, Additional history exists Procedures Procedure Name Priority Date/Time Associated Diagnosis Comments TROPONIN T (HS) ONE TIME Timed 05/14/2023 7:58 PM CUT OFF MACHINE OPERATOR MR HEAD BRAIN WWO STAT 05/14/2023 7:4 2 PM CUT OFF MACHINE OPERATOR UA W/ SEDIMENT EXAM REFLEXED PER CRITERIA STAT 05/14/2023 5:58 PM CUT OFF MACHINE OPERATOR CT ANGIO HEAD NECK CAROTID STROKE PROTOCOL CHRISTOPHER CANDIDAT STAT 05/14/2023 5:34 PM CUT OFF MACHINE OPERATOR EKG 12 LEAD STAT 05/14/2023 5:31 PM CUT OFF MACHINE OPERATOR CBC WITH AUTO DIFFERENTIAL STAT 05/14/2023 5:20 PM CUT OFF MACHINE OPERATOR TROPONIN T (HS) ACUTE W/2HR REFLEX STAT 05/14/2023 5:20 PM CUT OFF MACHINE OPERATOR BASIC METABOLIC PANEL STAT 05/14/2023 5:20 PM CUT OFF MACHINE OPERATOR PROTIME-INR STAT 05/14/2023 5:20 PM CUT OFF MACHINE OPERATOR CBC WITH AUTO DIFFERENTIAL STAT 05/14/2023 5:20 PM CUT OFF MACHINE OPERATOR CT HEAD STROKE PROTOCOL WITHOUT CONTRAST STAT 05/14/2023 5:18 PM CUT OFF MACHINE OPERATOR from Last 3 Months Results * TROPONIN T (HS) ONE TIME (05/14/2023 7:58 PM CUT OFF MACHINE OPERATOR) TROPONIN T HS 7 6-10 ng/L ng/L 05/14/2023 8:29 PM CUT OFF MACHINE OPERATOR [facility] Blood BLOOD SPECIMEN / Unknown Non-Lab Butterfly / Unknown 05/14/2023 7:58 PM CUT OFF MACHINE OPERATOR 05/14/2023 8:09 PM CUT OFF MACHINE OPERATOR [place] [address] * MR BRAIN W/WO CONTRAST (05/14/2023 7:42 PM CUT OFF MACHINE OPERATOR) Anatomical Region Laterality Modality BRAIN, HEAD Magnetic Resonan ce 05/14/2023 8:04 PM CUT OFF MACHINE OPERATOR Impressions 05/14/2023 8:04 PM CUT OFF MACHINE OPERATOR 1. No acute intracranial abnormality. 2. Chronic lacunar infarctions right cerebellar hemisphere. 3. 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 4. Mild chronic microvascular ischemic changes and diffuse cerebral volume loss. Dictated by Orlando Reeves MD @ 05/14/2023 8:04:01 PM (Electronically Signed) Narrative 05/14/2023 8:04 PM CUT OFF MACHINE OPERATOR For Patients: ??As a result of the Century Cures Act, medical imaging exams and procedure reports are released immediately into your electronic medical record. ??You may view this report before your referring provider. ??If you have questions, please contact your health care provider. INDICATION: Confusion. TECHNIQUE: Multiplanar multisequence MR imaging of the brain prior to and following intravenous contrast. COMPARISON: CT brain 05/14/2023. FINDINGS: Mild diffuse cerebral volume loss. No mass effect or midline shift. Scattered FLAIR hyperintensities in the supratentorial white matter, typical for mild chronic microvascular ischemic changes. Small cavernous malformation within the lateral right frontal white matter measuring 4 mm (series 9, image 13) associated with susceptibility blooming. No recent intracranial hemorrhage or pathologic extra- axial fluid collection. No diffusion restriction to suggest acute infarction. No pathologic intracranial enhancement. Chronic lacunar infarctions right cerebellar hemisphere. The major arterial flow voids of the skullbase are preserved. The globes are symmetric. The paranasal sinuses are well aerated. The mastoid air cells are clear. Procedure Note Orlando Reeves MD - 05/14/2023 For Patients: As a result of the Cures Act, medical imagingexams and procedure reports are released immediately into your electronicmedical record. You may view this report before your referring provider.If you have questions, please contact your health care provider. INDICATION: Confusion. TECHNIQUE: Multiplanar multisequence MR imaging of the brain prior to and followingintravenous contrast. COMPARISON: CT brain 05/14/2023. FINDINGS: Mild diffuse cerebral volume loss. No mass effect or midline shift.Scattered FLAIR hyperintensities in the supratentorial white matter,typical for mild chronic microvascular ischemic changes. Small cavernousmalformation within the lateral right frontal white matter measuring 4 mm(series 9, image 13) associated with susceptibility blooming. No recentintracranial hemorrhage or pathologic extra- axial fluid collection. Nodiffusion restriction to suggest acute infarction. No pathologicintracranial enhancement. Chronic lacunar infarctions right cerebellarhemisphere. The major arterial flow voids of the skullbase are preserved. The globesare symmetric. The paranasal sinuses are well aerated. The mastoid aircells are clear. IMPRESSION: 1. No acute intracranial abnormality. 2. Chronic lacunar infarctions right cerebellar hemisphere. 3. 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 4. Mild chronic microvascular ischemic changes and diffuse cerebral volumeloss. Dictated by Orlando Reeves MD @ 05/14/2023 8:04:01 PM (Electronically Signed) Joel Reeves MD MR * UA W/ SEDIMENT EXAM REFLEXED PER CRITERIA (05/14/2023 5:58 PM CUT OFF MACHINE OPERATOR) COLOR Yellow Yellow Color 05/14/2023 6:23 PM CUT OFF MACHINE OPERATOR [facility] CLARITY Clear Clear Clarity 05/14/2023 6:23 PM CUT OFF MACHINE OPERATOR [facility] SPECIFIC GRAVITY,URINE 1.010 1.010, 1.015, 1.020, 1.025 05/14/2023 6:23 PM [facility] PH,URINE 6.0 6.0, 7.0, 8.0, 5.5, 6.5, 7.5, 8.5 05/14/2023 6:23 PM [facility] UROBILINOGEN,Q UALITATIVE Normal Normal EU/dl 05/14/2023 6:23 PM [facility] PROTEIN, URINE Negative Negative mg/dL 05/14/2023 6:23 PM [facility] GLUCOSE, URINE Negative Negative mg/dL 05/14/2023 6:23 PM [facility] KETONES,URINE Negative Negative mg/dL 05/14/2023 6:23 PM [facility] BILIRUBIN,URIN E Negative Negative 05/14/2023 6:23 PM [facility] OCCULT BLOOD,URINE Negative Negative 05/14/2023 6:23 PM [facility] NITRITE Negative Negative 05/14/2023 6:23 PM [facility] LEUKOCYTE ESTERASE Negative Negative 05/14/2023 6:23 PM CUT OFF MACHINE OPERATOR [facility] Urine URINE SPECIMEN / Unknown Non-Blood / Unknown 05/14/2023 5:58 PM CUT OFF MACHINE OPERATOR 05/14/2023 6:11 PM CUT OFF MACHINE OPERATOR Joel Reeves MD URINE [facility] [address] [place] [id number] * CT ANGIO HEAD NECK CAROTID STROKE PROTOCOL CHRISTOPHER CANDIDAT (05/14/2023 5:34 PM CUT OFF MACHINE OPERATOR) Anatomical Region Laterality Modality BRAIN, NECK Computed Tomogra phy 05/14/2023 6:00 PM CUT OFF MACHINE OPERATOR Addenda Addendum by Zia Schaefer MD on 05/15/2023 6:59 AM CUT OFF MACHINE OPERATOR For Patients: ??As a result of the Cures Act, medical imaging exams and procedure reports are released immediately into your electronic medical record. ??You may view this report before your referring provider. ?? If you have questions, please contact your health care provider. INDICATION: Acute stroke. TECHNIQUE: CTA neck with contrast bolus tracking, 3D angiographic rendering using maximum intensity projection (MIP) and images permanently archived. FINDINGS: There is no significant carotid artery stenosis or dissection. There is no significant vertebral artery stenosis or dissection. Degenerative changes are noted in the cervical spine. IMPRESSION: 1. No significant carotid or vertebral artery stenosis or dissection. 2. Per preliminary report: Hypoattenuating lesion demonstrating internal septation in the right tonsil measuring up to 1.9 cm is adjacent to coarse calcification and most likely represents a cyst. Direct visualization is offered for further evaluation. Follow-up CT neck could assess for stability. Please note that all CT scans at this facility use dose modulation, iterative reconstruction, and/or weight-based dosing when appropriate to reduce radiation dose to as low as reasonably achievable. Dictated by Zia Schaefer MD @ 05/15/2023 6:59:25 AM (Electronically Signed) Impressions 05/15/2023 6:57 AM CUT OFF MACHINE OPERATOR Unremarkable head CTA. No large vessel occlusion. Please note that all CT scans at this facility use dose modulation, iterative reconstruction, and/or weight-based dosing when appropriate to reduce radiation dose to as low as reasonably achievable. Dictated by Zia Schaefer MD @ 05/15/2023 6:57:57 AM (Electronically Signed) Narrative 05/15/2023 6:57 AM CUT OFF MACHINE OPERATOR For Patients: ??As a result of the Cures Act, medical imaging exams and procedure reports are released immediately into your electronic medical record. ??You may view this report before your referring provider. ??If you have questions, please contact your health care provider. INDICATION: Acute stroke. TECHNIQUE: CTA head with contrast bolus tracking, 3D angiographic rendering using maximum intensity projection (MIP) and images permanently archived. FINDINGS: There is normal opacification of the intracranial vasculature. There is no large vessel occlusion. No aneurysm is identified. Procedure Note Zia Schaefer MD - 05/15/2023 For Patients: As a result of the 21st Century Cures Act, medical imagingexams and procedure reports are released immediately into your electronicmedical record. You may view this report before your referring provider.If you have questions, please contact your health care provider. INDICATION: Acute stroke. TECHNIQUE: CTA head with contrast bolus tracking, 3D angiographic rendering usingmaximum intensity projection (MIP) and images permanently archived. FINDINGS: There is normal opacification of the intracranial vasculature. There is no large vessel occlusion. No aneurysm is identified. IMPRESSION: Unremarkable head CTA. No large vessel occlusion. Please note that all CT scans at this facility use dose modulation,iterative reconstruction, and/or weight-based dosing when appropriate toreduce radiation dose to as low as reasonably achievable. Dictated by Zia Schaefer MD @ 05/15/2023 6:57:57 AM (Electronically Signed) Joel Reeves MD CT * EKG 12 Lead (05/14/2023 5:31 PM CUT OFF MACHINE OPERATOR) Pathologist [facility] Interpretation Normal sinus rhythm Nonspecific ST abnormality Abnormal ECG BEYOND NOW Ventricular Rate 73 BPM BEYOND NOW Atrial Rate 73 BPM BEYOND NOW P-R Interval 180 ms BEYOND NOW QRS Duration 92 ms BEYOND NOW QT 410 ms BEYOND NOW QTc 451 ms BEYOND NOW P [place] 63 degrees BEYOND NOW R [place] 15 degrees BEYOND NOW T [place] 17 degrees BEYOND NOW 05/14/2023 5:31 PM CUT OFF MACHINE OPERATOR 05/17/2023 12:06 PM CUT OFF MACHINE OPERATOR Joel Reeves MD EKG ORD BEYOND NOW [place], [place] * TROPONIN T (HS) ACUTE W/2HR REFLEX (05/14/2023 5:20 PM CUT OFF MACHINE OPERATOR) Pathologist [facility] TROPONIN T HS 7 6-10 ng/L ng/L 05/14/2023 6:04 PM CUT OFF MACHINE OPERATOR [facility] Blood BLOOD SPECIMEN / Unknown IV Start / Unknown 05/14/2023 5:20 PM CUT OFF MACHINE OPERATOR 05/14/2023 5:41 PM CUT OFF MACHINE OPERATOR Narrative [facility] - 05/14/2023 6:04 PM CUT OFF MACHINE OPERATOR hs-cTnT (Elecsys Troponin T Gen 5) concentration (s) above the sex-specific 99th percentile (16 ng/L or greater for males or 11 ng/L or greater for females) are indicative of myocardial injury. If initial hs-cTnT <=100 ng/L at presentation, a 0h/2h ABSOLUTE (ng/L) delta change (rising or falling) of >=10 ng/L suggests a significant change, whereas a 0h/2h delta change <=3 ng/L suggests no significant change. If initial hs-cTnT >100 ng/L at presentation, a 0h/2h/ RELATIVE (percent, %) delta change of 20% is suggested to distinguish patients with acute vs. chronic myocardial injury. There are multiple etiologies that can cause hs-cTnT increases above the 99th percentile (myocardial injury) other than acute myocardial infarction. Clinical context and careful clinical evaluation are critical for diagnosis and risk-stratification. The diagnosis of acute myocardial infarction requires a rising and/or falling pattern in hs-cTnT concentrations with at least one value above the sex-specific 99th percentile PLUS at least one of the following clinical criteria: ischemic symptoms, new or presumed new significant ST-T wave changes or new LBBB, development of pathological Q waves, imaging evidence of new loss of viable myocardium or new regional wall motion abnormality, or identification of intracoronary atherothrombosis or an acute angiographic culprit on coronary angiography. In appropriate low-risk patients with a non-ischemic electrocardiogram without active chest pain with a symptom onset >3-hours without recurrence, a single initial hs-cTnT<6 ng/L identifies patient with a very low risk in emergency department patient population. Joel Reeves MD CHEMISTRY [facility] [address] [place] [address] * CBC WITH AUTO DIFFERENTIAL (05/14/2023 5:20 PM CUT OFF MACHINE OPERATOR) [facility] WHITE BLOOD COUNT 6.8 4.5 - 11.0 thou/cu mm 05/14/2023 5:46 PM CUT OFF MACHINE OPERATOR [facility] RED BLOOD COUNT 4.25 4.00 - 5.20 mil/cu mm 05/14/2023 5:46 PM CUT OFF MACHINE OPERATOR [facility] HEMOGLOBIN 12.9 12.0 - 16.0 g/dL 05/14/2023 5:46 PM [facility] HEMATOCRIT 39.1 33.0 - 51.0 % 05/14/2023 5:46 PM CUT OFF MACHINE OPERATOR [facility] MCV 92 80 - 100 fL 05/14/2023 5:46 PM CUT OFF MACHINE OPERATOR [facility] MCH 30.4 26.0 - 34.0 pg 05/14/2023 5:46 PM CUT OFF MACHINE OPERATOR [facility] MCHC 33.0 32.0 - 36.0 g/dL 05/14/2023 5:46 PM CUT OFF MACHINE OPERATOR [facility] RDW 13.2 11.5 - 15.5 % 05/14/2023 5:46 PM CUT OFF MACHINE OPERATOR [facility] PLATELET COUNT 227 140 - 440 thou/cu mm 05/14/2023 5:46 PM CUT OFF MACHINE OPERATOR [facility] MPV 9.6 6.5 - 11.0 fL 05/14/2023 5:46 PM CUT OFF MACHINE OPERATOR [facility] NRBC 0.0 % 05/14/2023 5:46 PM CUT OFF MACHINE OPERATOR [facility] ABS NRBC 0.0 thou /cu mm 05/14/2023 5:46 PM CUT OFF MACHINE OPERATOR [facility] % NEUT 62.4 % 05/14/2023 5:46 PM CUT OFF MACHINE OPERATOR [facility] % LYMPH 27.8 % 05/14/2023 5:46 PM CUT OFF MACHINE OPERATOR [facility] % MONO 7.0 % 05/14/2023 5:46 PM CUT OFF MACHINE OPERATOR [facility] % EOS 1.5 % 05/14/2023 5:46 PM CUT OFF MACHINE OPERATOR [facility] % BASO 0.9 % 05/14/2023 5:46 PM CUT OFF MACHINE OPERATOR [facility] % IMMATURE GRAN (METAS,MYELOS,CA OS) 0.4 % 05/14/2023 5:46 PM CUT OFF MACHINE OPERATOR [facility] ABSOLUTE NEUTROPHILS 4.3 1.7 - 7.0 thou/cu mm 05/14/2023 5:46 PM CUT OFF MACHINE OPERATOR [facility] ABSOLUTE LYMPHOCYTES 1.9 0.9 - 2.9 thou/cu mm 05/14/2023 5:46 PM CUT OFF MACHINE OPERATOR [facility] ABSOLUTE MONOCYTES 0.5 <0.9 thou/cu mm 05/14/2023 5:46 PM CUT OFF MACHINE OPERATOR [facility] ABSOLUTE EOSINOPHILS 0.1 <0.5 thou/cu mm 05/14/2023 5:46 PM CUT OFF MACHINE OPERATOR [facility] ABSOLUTE BASOPHILS 0.1 <0.3 thou/cu mm 05/14/2023 5:46 PM CUT OFF MACHINE OPERATOR [facility] ABSOLUTE IMMATURE GRANULOCYTES(MET ,MYELOS,PROS) 0.0 <0.3 thou/cu mm 05/14/2023 5:46 PM CUT OFF MACHINE OPERATOR [facility] Blood BLOOD SPECIMEN / Unknown IV Start / Unknown 05/14/2023 5:20 PM CUT OFF MACHINE OPERATOR 05/14/2023 5:41 PM CUT OFF MACHINE OPERATOR Joel Reeves MD HEMATOLOGY Performing Organization Address [facility] de Phone Number [address] [address] * PROTIME- INR (05/14/2023 5:20 PM CUT OFF MACHINE OPERATOR) INR 1.0 <1.3 05/14/2023 5:54 PM CUT OFF MACHINE OPERATOR [facility] PROTIME 11.7 10.3 - 12.3 sec 05/14/2023 5:54 PM CUT OFF MACHINE OPERATOR [facility] Blood BLOOD SPECIMEN / Unknown IV Start / Unknown 05/14/2023 5:20 PM CUT OFF MACHINE OPERATOR 05/14/2023 5:41 PM CUT OFF MACHINE OPERATOR Narrative [facility] - 05/14/2023 5:54 PM CUT OFF MACHINE OPERATOR ?Therapeutic Range 2.0-3.0 for most anticoagulated patients 2.5-3.5 or 4.0 for high risk patients The INR is only used for patients on stable oral anticoagulant therapy. It makes no significant contribution to the diagnosis or treatment of patients whose Protime is prolonged for other reasons. INR results are increased when heparin levels exceed 1.0 U/mL, which corresponds to an aPTT >125 seconds if the patient is on UFH. Joel Reeves MD HEMATOLOGY Performing Organization Address [facility] Co de Phone Number [address] [address] * (ABNORMAL) BASIC METABOLIC PANEL (05/14/2023 5:20 PM CUT OFF MACHINE OPERATOR) SODIUM 139 136 - 145 mmol/L 05/14/2023 6:04 PM [facility] POTASSIUM 3.7 3.5 - 5.1 mmol/L 05/14/2023 6:04 PM [facility] CHLORIDE 103 98 - 107 mmol/L 05/14/2023 6:04 PM [facility] CO2,TOTAL 25 22 - 29 mmol/L 05/14/2023 6:04 PM [facility] ANION GAP 11 5 - 18 05/14/2023 6:04 PM [facility] GLUCOSE 111(H) 70 - 99 mg/dL 05/14/2023 6:04 PM [facility] CALCIUM 9.2 8.8 - 10.2 mg/dL 05/14/2023 6:04 PM [facility] BUN 21 8 - 23 mg/dL 05/14/2023 6:04 PM [facility] CREATININE 0.74 0.50 - 0.90 mg/dL 05/14/2023 6:04 PM [facility] BUN/CREAT RATIO 28(H) 10 - 20 6:04 PM [facility] eGFR 84(L) >90 mL/min/1.7 3m2 05/14/2023 6:04 PM [facility] Comment:As of 2021, eG FR is calculated by the CKD-EPI creatinine equation without race adjustment. ??eGFR can be influenced by muscle mass, exercise, and diet. ??The reported eGFR is an estimation only and is only applicable if the renal function is stable. Blood BLOOD SPECIMEN / Unknown IV Start / Unknown 05/14/2023 5:20 PM CUT OFF MACHINE OPERATOR 05/14/2023 5:41 PM CUT OFF MACHINE OPERATOR Joel Reeves MD CHEMISTRY [facility] [address] [place] [address] * CT HEAD STROKE PROTOCOL WITHOUT CONTRAST Thrombolytic Candidate (05/14/2023 5:18 PM CUT OFF MACHINE OPERATOR) Anatomical Region Laterality Modality BRAIN Computed Tomogra phy 05/14/2023 5:32 PM CUT OFF MACHINE OPERATOR Impressions 05/14/2023 5:32 PM CUT OFF MACHINE OPERATOR No acute intracranial hemorrhage or mass effect. Please note that all CT scans at this facility use dose modulation, iterative reconstruction, and/or weight-based dosing when appropriate to reduce radiation dose to as low as reasonably achievable. Dictated by Orlando Reeves MD @ 05/14/2023 5:32:14 PM (Electronically Signed) Narrative 05/14/2023 5:32 PM CUT OFF MACHINE OPERATOR For Patients: ??As a result of the Cures Act, medical imaging exams and procedure reports are released immediately into your electronic medical record. ??You may view this report before your referring provider. ??If you have questions, please contact your health care provider. INDICATION: Confusion. TECHNIQUE: Noncontrast CT images of the brain. COMPARISON: None. FINDINGS: Mild diffuse cerebral volume loss. No mass effect or midline shift. The jurado- white differentiation is maintained. No acute intracranial hemorrhage or pathologic extra-axial fluid collection. Intracranial atherosclerotic calcifications. The globes are symmetric. The calvarium is intact. The visualized paranasal sinuses and mastoid air cells are clear. Procedure Note Orlando Reeves MD - 05/14/2023 For Patients: As a result of the Cures Act, medical imagingexams and procedure reports are released immediately into your electronicmedical record. You may view this report before your referring provider.If you have questions, please contact your health care provider. INDICATION: Confusion. TECHNIQUE: Noncontrast CT images of the brain. COMPARISON: None. FINDINGS: Mild diffuse cerebral volume loss. No mass effect or midline shift. Thegray- white differentiation is maintained. No acute intracranial hemorrhage or pathologic extra-axial fluidcollection. Intracranial atherosclerotic calcifications. The globes are symmetric. The calvarium is intact. The visualizedparanasal sinuses and mastoid air cells are clear. IMPRESSION: No acute intracranial hemorrhage or mass effect. Please note that all CT scans at this facility use dose modulation,iterative reconstruction, and/or weight-based dosing when appropriate toreduce radiation dose to as low as reasonably achievable. Dictated by Orlando Reeves MD @ 05/14/2023 5:32:14 PM (Electronically Signed) Joel Reeves MD CT from Last 3 Months Advance Directives Latest Code Status on File Code Status Date Activated Date Inactivated Comments Full Code 02/02/2016 1:08 PM 02/02/2016 4:49 PM Care Teams Edge Sander Relationship Specialty Start Date End Date Jessica Trejo, PAVictoriaC [address] [place] [address] PCP - General Physician Health Technician 05/14/23
--- OUTSIDE RECORDS SUMMARY | 2023-05-29 09:03 | XMS_ITS | Clinical Summary ---
Author Name Unknown Organization [facility] Address [address] [place] [address] Care Team Providers Care Speed Belt Sander Tender Name Role Phone Maya Jessica Plascencia PA-C Primary Care Provider [phone] Source Comments You are receiving this document as you are listed as the primary care provider,follow-up provider, or the patient has been referred to you for consultation.This is in compliance with the Medicare and[facility] EHR Incentive Program,which states Providers who transition their patient to another setting of careor provider of care or refers their patient to another provider of care shouldprovide summary care record for each transition of care or referral. [facility] Allergies Active Allergy Reactions Criticality Noted Date Comments Penicillins Anaphylaxis High 01/04/2012 Medications Medication Sig Dispensed Refills Start Date End Date Status naproxen sodium (ANAPROX) 220 MG tablet Take 1 Tablet (220 mg) by mouth two times a day with meals. 60 Tablet 0 05/09/2022 Active lisinopril-hydroCHL OROthiazide (PRINZIDE) 20-12.5 MG tabletIndications:E ssential hypertension (HRC) Take 1 Tablet by mouth daily. 90 Tablet 3 05/27/2023 Active lisinopril-hydroCHL OROthiazide (PRINZIDE) 20-12.5 MG tabletIndications:E ssential hypertension (HRC) TAKE 1 TABLET BY MOUTH DAILY. 90 Tablet 2 09/25/2022 05/27/2023 Discontinued (*Med change OR same med OR reorder, new dose/directi ons) Active Problems Problem Noted Date Diagnosed Date Mixed hyperlipidemia 07/15/2019 Osteopenia 07/15/2019 Essential hypertension 07/10/2016 Obesity, Class II, BMI 35-39.9 01/10/2012 Resolved Problems Problem Noted Date Diagnosed Date Resolved Date Encounter for Medicare annual wellness exam 07/15/2019 07/15/2019 IFG (impaired fasting glucose) 12/21/2015 07/15/2019 Pure hypercholesterolemia 12/21/2015 Pulmonary nodule 01/16/2012 05/01/2017 Overview: F/U Chest CT on 11/17/14- revealed a stable 3 mm benign-appearing nodule in the lateral aspect of the right lower lobe. Encounters Date Type Department Care Team Description 05/27/2023 4:20 PM STRAIGHTENING MACHINE OPERATOR Lab Visit [place] [facility] [address] [place] [address] Encounter for long-term (current) use of medications; Preop examination 05/27/2023 3:30 PM STRAIGHTENING MACHINE OPERATOR [facility] [address] [place] [address] Jessica Trejo, KEISHAC Encounter for Medicare annual wellness exam (Primary Dx); Preop examination; Traumatic complete tear of right rotator cuff, initial encounter; Essential hypertension (HRC); Obesity, Class I, BMI 30-34.9 (HRC); Encounter for long-term (current) use of medications 05/10/2023 [facility] [address] [place] [address] Jessica Trejo PA-C Appt. Needed from Last 3 Months Immunizations Name Administration Dates Next Due Influenza IIV3 (Trivalent) F luzone Highdose, 65+ Yrs (26154) 03/21/2021 Influenza IIV4 (Quadrivalent) 0.5mL (92921) 03/13 Influenza IIV4 (Quadrivalent ) Fluad, 65+ Yrs 03/14/2022 Influenza IIV4 (Quadrivalent ) Fluzone, 65+ Yrs 03/07/2023,03/21/2021,03/19/2020 Influenza, Unspecified Formulation 03/28/2012 Moderna Bivalent 12+ 03/14/2022 PCV13 (Prevnar) 05/08/2018 PPSV23 (Pneumovax) 12/21/2015 Pfizer / 12+ 03/07/2023 Pfizer Monovalent 12+ 09/07/2021 Pfizer Monovalent 12+ Purple Top 03/21/2021,07/11,06/30/2020 TDAP (BOOSTRIX) 12/21/2015 Zoster (Zostavax) 12/21/2015 Zoster RZV (Shingrix) 08/21/2021 Family History Medical History Relation Name Comments Coronary Artery Disease Father Cancer, Breast Mother mets to brain Cancer Brother stomach? Coronary Artery Disease Brother Diabetes Brother type II Kidney Disorder Brother Nephritis, s /p kidney transplant, BP issues Stroke Brother Diabetes, Type II Daughter Anesthesia Reaction Negative Family History Cancer, Ovary Negative Family History Relation Name Status Comments Father (Age 78) DIC Mother (Age 83) Metastatic breast cancer Brother (Age 58) CVA Daughter Alive Maternal Grandfather Maternal Grandmother Paternal Grandfather Paternal Grandmother Social History Tobacco Use Types Packs/Day Years Used Date Smoking Tobacco: Never Passive Smoke Exposure: Never Smokeless Tobacco: Never Tobacco Cessation:Counseling Given: Not Answered Alcohol Use Standard Drinks/Week Comments Yes 1 (1 standard drink = 0.6 oz pur e alcohol) monthly PHQ-2 Answer Date Recorded PHQ-2 Score 0 08/21/2021 Sex and Gender Information Value Date Recorded Sex Assigned at Not on file Gender Identity Not on file Sexual Orientation Not on file Last Filed Vital Signs Vital Sign Reading Time Taken Comments Blood Pressure 122/60 05/27/2023 3:46 PM STRAIGHTENING MACHINE OPERATOR Pulse 59 05/27/2023 3:46 PM STRAIGHTENING MACHINE OPERATOR Temperature 36.7 ??C (98.1 ??F) 07/15/2019 11:[address] Respiratory Rate - - Oxygen Saturation 95% 07/15/2019 11:35 AM STRAIGHTENING MACHINE OPERATOR Inhaled Oxygen Concentration - - Weight 83 kg (183 lb) 05/27/2023 3:46 PM STRAIGHTENING MACHINE OPERATOR Height 157.5 cm (5' 2) 05/27/2023 3:46 PM STRAIGHTENING MACHINE OPERATOR Body Mass Index 33.47 05/27/2023 3:46 PM STRAIGHTENING MACHINE OPERATOR Plan of Treatment Health Maintenance Due Date Last Done Comments Dexa 11/15/2017 11/15/2014 Zoster/Shingles (3 of 3) 10/16/2021 08/21/2021, 12/11 Prediabetes: HGBA1C 05/09/2023 05/09/2022, 08/21/2021, 07/15/2019, Additional history exists Medicare Annual Wellness Visit 05/27/2024 05/27/2023, 08/21/2021, 08/03/2020, Additional history exists DTaP/Tdap/Td (2 - Tdap) 12/20/2025 12/21/2015 Colonoscopy 02/01/2026 02/02/2016 (Completed) Hep C Screening (Preventive Services) Completed 05/08/2018 Pneumococcal 65+ Yrs Completed 05/08/2018, 12/21/19 16 Cholesterol Discontinued 08/21/2021, 07/12, 07/15/2019, Additional history exists COVID-19 Vaccine Completed 03/07/2023, 06/2021, 09/07/2021, Additional history exists Influenza Completed 03/07/2023, 06/2021, 03/21/2021, Additional history exists HepA Aged Out No longer eligi ble based on patient's age to complete this topic HepB Aged Out No longer eligi ble based on patient's age to complete this topic Hib Aged Out No longer eligi ble based on patient's age to complete this topic IPV (Polio) Aged Out No longer eligi ble based on patient's age to complete this topic MCV4 Aged Out No longer eligi ble based on patient's age to complete this topic Procedures Procedure Name Priority Date/Time Associated Diagnosis Comments COMPLETE BLOOD COUNT-NO DIFF Routine 05/27/2023 4:19 PM STRAIGHTENING MACHINE OPERATOR Preop examination SODIUM Routine 05/27/2023 4:19 PM STRAIGHTENING MACHINE OPERATOR Encounter for long-term (current) use of medications POTASSIUM Routine 05/27/2023 4:19 PM STRAIGHTENING MACHINE OPERATOR Encounter for long-term (current) use of medications CREATININE / GFR Routine 05/27/2023 4:19 PM STRAIGHTENING MACHINE OPERATOR Encounter for long-term (current) use of medications from Last 3 Months Results * Creatinine / GFR (05/27/2023 4:19 PM STRAIGHTENING MACHINE OPERATOR) Creatinine 0.76 0.55 - 1.02 mg/dL 05/28/2023 9:36 AM STRAIGHTENING MACHINE OPERATOR [facility] GFR, Estimated >60 >60 mL/min/1.7 3m2 05/28/2023 9:36 AM STRAIGHTENING MACHINE OPERATOR [facility] Blood Venipuncture / Unknown 05/27/2023 4:19 PM STRAIGHTENING MACHINE OPERATOR 05/27/2023 4:19 PM STRAIGHTENING MACHINE OPERATOR Jessica Trejo PA-C LAB_1 [facility] [address] [place] [address], [facility] [phone] * Complete Blood Count-No Diff (05/27/2023 4:19 PM STRAIGHTENING MACHINE OPERATOR) WBC 6.9 3.5 - 10.5 x10(9)/L 05/27/2023 4:30 PM STRAIGHTENING MACHINE OPERATOR [facility] RBC 4.52 3.90 - 5.03 x10(12)/L 05/27/2023 4:30 PM STRAIGHTENING MACHINE OPERATOR [facility] Hemoglobin 13.7 12.0 - 15.5 g/dL 05/27/2023 4:30 PM STRAIGHTENING MACHINE OPERATOR [facility] HCT 42.1 34.9 - 44.5 % 05/27/2023 4:30 PM STRAIGHTENING MACHINE OPERATOR [facility] MCV 93.1 80.0 - 100.0 fL 05/27/2023 4:30 PM STRAIGHTENING MACHINE OPERATOR [facility] MCH 30.3 27.6 - 33.3 pg 05/27/2023 4:30 PM STRAIGHTENING MACHINE OPERATOR [facility] MCHC 32.5 31.5 - 35.2 g/dL 05/27/2023 4:30 PM STRAIGHTENING MACHINE OPERATOR [facility] RDW 14.1 11.9 - 15.5 % 05/27/2023 4:30 PM STRAIGHTENING MACHINE OPERATOR [facility] Platelets 205 150 - 450 x10(9)/L 05/27/2023 4:30 PM STRAIGHTENING MACHINE OPERATOR [facility] Blood Venipuncture / Unknown 05/27/2023 4:19 PM STRAIGHTENING MACHINE OPERATOR 05/27/2023 4:19 PM STRAIGHTENING MACHINE OPERATOR Jessica Trejo PA-C LAB_1 Performing Organization Address [facility] Co de Phone Number [facility] [address] [place] [address], [facility] [phone] * Sodium (05/27/2023 4:19 PM STRAIGHTENING MACHINE OPERATOR) Sodium 141 136 - 145 mmol/L 05/28/2023 9:36 AM STRAIGHTENING MACHINE OPERATOR [facility] Blood Venipuncture / Unknown 05/27/2023 4:19 PM STRAIGHTENING MACHINE OPERATOR 05/27/2023 4:19 PM STRAIGHTENING MACHINE OPERATOR Jessica Trejo PA-C LAB_1 Performing Organization Address [facility] de Phone Number [facility] [address] [place] [address], [facility] [phone] * Potassium (05/27/2023 4:19 PM STRAIGHTENING MACHINE OPERATOR) Potassium 3.9 3.5 - 5.1 mmol/L 05/28/2023 9:36 AM STRAIGHTENING MACHINE OPERATOR [facility] Blood Venipuncture / Unknown 05/27/2023 4:19 PM STRAIGHTENING MACHINE OPERATOR 05/27/2023 4:19 PM STRAIGHTENING MACHINE OPERATOR Jessica Trejo PA-C LAB_1 Performing Organization Address [facility] Co de Phone Number [facility] [address] [place] [address], [facility] [phone] from Last 3 Months Advance Directives Documents on File Type Date Recorded Patient Propagation Worker Expl anation HEALTHCARE DIRECTIVE 05/20/2022 3 Care Teams Speed Belt Sander Tender Relationship Specialty Start Date End Date Jessica Trejo PA-C [address] [place] [address] PCP - General 12/19/15
--- OUTSIDE RECORDS SUMMARY | 2023-05-29 09:04 | XMS_ITS | Encounter Summary ---
Author Name Unknown Organization [facility] Address [address] [place] [address] Care Team Providers Care Adjusto Writer Operator Name Role Phone Jessica Trejo PA-C Primary Care Provider [phone] Encounter Details Date Type Department Care Team Description 08/13/2022 Notes/Orders [facility] [place] [address] [place], [place] [id number] April Luis, PT [address] [place], [place] [address] Social History Tobacco Use Types Packs/Day Years Used Date Smoking Tobacco: Never Smokeless Tobacco: Never Alcohol Use Standard Drinks/Week Comments Yes 1 (1 standard drink = 0.6 oz pur e alcohol) monthly PHQ-2 Answer Date Recorded PHQ-2 Score 0 08/21/2021 Sex and Gender Information Value Date Recorded Sex Assigned at Not on file Gender Identity Not on file Sexual Orientation Not on file documented as of this encounter Progress Notes * April Luis, PT - 08/13/2022 12:28 PM CDT [facility] Services Physical Therapy Discharge Summary Edel Clark has not attended therapy since last documented visit. There are no further visits scheduled at this time and Edel is currently considered discharged from therapy. Unable to assess current level of function and goals due to unplanned discharge. PT - Discharge Total Visits: 2 Reason for discharge: Patient has not been consistent with attendance and/or failed to schedule appointments as planned. Please see previous visit documentation of status at last treatment. April Luis, PT documented in this encounter Plan of Treatment Not on file documented as of this encounter Visit Diagnoses Not on filedocumented in this encounter Care Teams Adjusto Writer Operator Relationship Specialty Start Date End Date Jessica Trejo, PAVictoriaC [address] [place] [address] PCP - General 12/19/15 documented as of this encounter
--- OUTSIDE RECORDS SUMMARY | 2023-05-29 09:04 | XMS_ITS | Encounter Summary ---
Author Name Unknown Organization [facility] Address [address] [place] [address] Care Team Providers Care Supervisor Edging Name Role Phone Jessica Trejo PA-C Primary Care Provider [phone] Reason for Visit * Reason Comments FYI Encounter Details Date Type Department Care Team Description 05/22/2022 [facility] [address] [place], [place] [id number] Jessica Trejo PA-C [address] [place], [place] [address] FYI Social History Tobacco Use Types Packs/Day Years [...] on file documented as of this encounter Nursing Notes * Terrie Davis - 05/22/2022 8:57 AM CST Miscellaneous Questions/Concerns/FYI Is this a symptom? No What condition are you calling about? Total left knee replacement What is your question or concern? Wanted the doctor to know Have you recently been seen for this? Yes: Is it okay to leave a detailed message on your voicemail? Yes Is there anything else I can help you with today? Wanted Doctor to know Opened up her home servicesfor Blue Cross blue Shield the patient will have Physical therapy services RESSOR ENGINEER documented in this encounter Plan of Treatment Not on file documented as of this encounter Visit Diagnoses Not on filedocumented in this encounter Care Teams Supervisor Edging Relationship Specialty Start Date End Date Jessica Trejo PA-C [address] [place] [address] PCP - General 12/19/15 documented as of this encounter
--- OUTSIDE RECORDS SUMMARY | 2023-05-29 09:04 | XMS_ITS | Encounter Summary ---
Author Name Unknown Organization [facility] Address [address] [place] [address] Care Team Providers Care American Indian Policy Specialist Name Role Phone MayaMelizaJessicasantana Plascencia PA-C Primary Care Provider [phone] Reason for Visit * Reason Comments Knee Problem Encounter Details Date Type Department Care Team Description 06/28/2022 9:15 AM FELLER OPERATOR Therapy [facility] [place] [address] [place], [place] [address] April Luis, PT [address] [place], [place] [phone] Status post total left knee replacement (Primary Dx) Social History Tobacco Use Types Packs/Day Years [...] Progress Notes * April Luis, PT - 06/28/2022 9:15 AM CST [facility] Physical Therapy-operative Knee Evaluation/Plan of Care Initial Certification Period: 06/27/2022 to 09/25/22 Referring Provider: Clayton Olson Surgical Procedure: L TKA Surgical Date: 05/16/22 Visit Diagnosis: 1. Status post total left knee replacement Precautions: WBAT Orders: Evaluate & treat Onset/Referral Date: 06/26/22 SUBJECTIVE Reason for Visit: Patient presents in clinic today s/p L TKA DOS 05/16/22. Was being treated by home health care 2x/week for 3 weeks. Notes she's doing well overall, feeling stiff in the mornings when she first gets going. Had 6 week follow up with surgeon who said everything was good. Patient Therapy Goals:Resume previous level of activity symptom free. Past Medical History: Past medical history, medication, and allergies were reviewed in the electronic medical record. History pertinent to therapy includes hyperlipidemia, HTN, . Recently Experienced (Red Flags): None Pain details: Current pain intensity level: 0/10 Aggravating factors:any weight bearing Relieving factors: None Work/Leisure/Sport: wants to go up down and all around. Stairs, housework, community ambulation Patient History: Moderate Complexity: 1-2 personal factors and/or comorbidities that impact plan of care: hyperlipidemia, HTN OBJECTIVE Observation: ambulating with no gait device Gait Exam: Antalgic Edema:Minimal ROM: AROM Left Extension ROM: lacking 5 deg Flexion ROM: 100 deg Strength: Quad set: Excellent SLR: Excellent, without extensor lag Well's DVT Clinical Decision Rule: Not Tested PT - Musculoskeletal - Knee Knee Outcome Survey - ADL (0-100%, 100 being best): 83 Clinical Examination: Moderate Complexity: Addressed 3 elements from body structures and functions (see above), and/or functional limitations as noted below. Today's Intervention/Charges: Physical Therapy Evaluation was completed and the patient was educated on the condition, planned therapy intervention and expectations from treatment. Therapeutic exercise x 30 minutes: Access Code: [email or web address] Quad Setting and Stretching - 1 x daily - 7 x weekly - 1 sets - 10 reps Seated Knee Flexion Stretch - 1 x daily - 7 x weekly - 1 sets - 10 reps Standing Knee Flexion Stretch on Step - 1 x daily - 7 x weekly - 1 sets - 10 reps Standing Hamstring Stretch with Step - 1 x daily - 7 x weekly - 1 sets - 10 reps Standing Single Leg Stance with Counter Support - 1 x daily - 7 x weekly - 1 sets - 2 reps - 30 second hold Sit to Stand Without Arm Support - 1 x daily - 7 x weekly - 1 sets - 10 reps Leg bike was completed with seat= 6, level= 5, minutes completed=10 Education/Handouts: Diagnosis Education, Post-op restrictions, RICE principles Timed Code Treatment Minutes: 30 Total Treatment Minutes: 45 ASSESSMENT Therapist Impression/Summary: Patient is presenting s/p L TKA and functional limitations are consistent with post op status. Functional limitations include pain, swelling, ROM loss, quad weakness, and difficulty walking. Patient is a good candidate for physical therapy and will benefit from skilledmanual care and therapeutic measures. Recommend PT 1-3x a week for manual therapy, modalities, therapeutic exercise and HEP progression. PT Clinical Presentation: Moderate Complexity: Evolving Clinical Presentation with changing clinical characteristics Clinical Decision Making: Moderate Complexity Recommendations/Equipment: No additional recommendations at this time Significant Impairments: Pain, Muscle tightness/decreased flexibility, Muscle weakness, Muscular imbalances, Poor quad activation/strength, Joint hypomobility, ROM Limitation, Joint replacement aftercare Functional Limitations: poor body mechanics, difficulty sleeping, difficulty dressing, difficulty with household tasks, difficulty with driving, difficulty with gait, and difficulty with stairs Goals/Functional Outcomes: HEP/Independent Management: Demonstrate independence with HEP and self- management following each treatment session ADL's: Perform home management tasks with ease in 4-6 weeks. Perform sit to stand transfer using involved lower extremity in 6 weeks. Ambulation: Ambulate with normal gait pattern on uneven surfaces with minimal to no symptoms/limp in 6 weeks. Ascend/descend stairs independently with reciprocal pattern with minimal to no symptoms and improved lower extremity alignment in 6 weeks. Barriers to Goal Achievement or Learning: none Prognosis: Good PLAN Planned Intervention/Education: ADL/Self Management, Dry Needling, Education, Electrical Stimulation, Gait training, Heat/ice, Iontophoresis with Dexamethasone Sodium Phosphate 4 mg/mL solution prn with procedure to reduce inflammation. Deliver 1.0mL-1.5mL through iontophoresis patch to affected area., Manual Therapy, Mechanical Traction, Neuromuscular Re-education, TENS application/self treatment, Therapeutic Activities, Therapeutic Exercise, Ultrasound Frequency: 1 x week Duration: 90 days Discharge Plan: Patient will be discharged from therapy when goals are achieved or patient plateausin progress. Informed Consent: Patient and/or family in agreement with the care plan. Plan for Next Treatment: progress as tolerated, trial leg press, focus on knee ROM next session The public address servicer is completed by the therapist and the referring clinician's out of network signature (which was sent at completion of initial evaluation) certifies medical necessity for the plan above. ER OPERATOR documented in this encounter Plan of Treatment Not on file documented as of this encounter Visit Diagnoses Diagnosis Status post total left knee replacement- Primary documented in this encounter Care Teams American Indian Policy Specialist Relationship Specialty Start Date End Date Jessica Trejo, PAVictoriaC [address] [place] [address] PCP - General 12/19/15 documented as of this encounter
--- OUTSIDE RECORDS SUMMARY | 2023-05-29 09:04 | XMS_ITS | Encounter Summary ---
Author Name Unknown Organization [facility] Address [address] [place] [address] Care Team Providers Care Casing Trimmer Name Role Phone Jessica Trejo PA-C Primary Care Provider [phone] Encounter Details Date Type Department Care Team Description 05/27/2023 4:20 PM CDL COMPANY DRIVER Lab Visit [place] [facility] [address] [place] [address] Encounter for long-term (current) use of medications; Preop examination Social History Tobacco Use Types Packs/Day Years Used Date Smoking Tobacco: Never Passive Smoke Exposure: Never Smokeless Tobacco: Never Alcohol Use Standard Drinks/Week Comments Yes 1 (1 standard drink = 0.6 oz pur e alcohol) monthly PHQ-2 Answer Date Recorded PHQ-2 Score 0 08/21/2021 Sex and Gender Information Value Date Recorded Sex Assigned at Not on file Gender Identity Not on file Sexual Orientation Not on file documented as of this encounter Plan of Treatment Not on file documented as of this encounter Procedures Procedure Name Priority Date/Time Associated Diagnosis Comments CREATININE / GFR Routine 05/27/2023 4:19 PM CDL COMPANY DRIVER Encounter for long-term (current) use of medications COMPLETE BLOOD COUNT-NO DIFF Routine 05/27/2023 4:19 PM CDL COMPANY DRIVER Preop examination SODIUM Routine 05/27/2023 4:19 PM CDL COMPANY DRIVER Encounter for long-term (current) use of medications POTASSIUM Routine 05/27/2023 4:19 PM CDL COMPANY DRIVER Encounter for long-term (current) use of medications documented in this encounter Results * Complete Blood Count-No Diff (05/27/2023 4:19 PM CDL COMPANY DRIVER) WBC 6.9 3.5 - 10.5 x10(9)/L 05/27/2023 4:30 PM CDL COMPANY DRIVER [facility] RBC 4.52 3.90 - 5.03 x10(12)/L 05/27/2023 4:30 PM CDL COMPANY DRIVER [facility] Hemoglobin 13.7 12.0 - 15.5 g/dL 05/27/2023 4:30 PM CDL COMPANY DRIVER [facility] HCT 42.1 34.9 - 44.5 % 05/27/2023 4:30 PM CDL COMPANY DRIVER [facility] MCV 93.1 80.0 - 100.0 fL 05/27/2023 4:30 PM CDL COMPANY DRIVER [facility] MCH 30.3 27.6 - 33.3 pg 05/27/2023 4:30 PM CDL COMPANY DRIVER [facility] MCHC 32.5 31.5 - 35.2 g/dL 05/27/2023 4:30 PM CDL COMPANY DRIVER [facility] RDW 14.1 11.9 - 15.5 % 05/27/2023 4:30 PM CDL COMPANY DRIVER [facility] Platelets 205 150 - 450 x10(9)/L 05/27/2023 4:30 PM CDL COMPANY DRIVER [facility] Blood Venipuncture / Unknown 05/27/2023 4:19 PM CDL COMPANY DRIVER 05/27/2023 4:19 PM CDL COMPANY DRIVER Jessica Trejo PA-C LAB_1 [facility] [address] [place] [address] [phone] * Sodium (05/27/2023 4:19 PM CDL COMPANY DRIVER) Sodium 141 136 - 145 mmol/L 05/28/2023 9:36 AM CDL COMPANY DRIVER [facility] Blood Venipuncture / Unknown 05/27/2023 4:19 PM CDL COMPANY DRIVER 05/27/2023 4:19 PM CDL COMPANY DRIVER Jessica Trejo PA-C LAB_1 Performing Organization Address [facility] Co de Phone Number [facility] [address] [place] [address], [facility] [phone] * Potassium (05/27/2023 4:19 PM CDL COMPANY DRIVER) Potassium 3.9 3.5 - 5.1 mmol/L 05/28/2023 9:36 AM CDL COMPANY DRIVER [facility] Blood Venipuncture / Unknown 05/27/2023 4:19 PM CDL COMPANY DRIVER 05/27/2023 4:19 PM CDL COMPANY DRIVER Jessica Trejo PA-C LAB_1 Performing Organization Address [facility] de Phone Number [facility] [id number] [place] [address], [facility] [phone] * Creatinine / GFR (05/27/2023 4:19 PM CDL COMPANY DRIVER) Creatinine 0.76 0.55 - 1.02 mg/dL 05/28/2023 9:36 AM [facility] GFR, Estimated >60 >60 mL/min/1.7 3m2 05/28/2023 9:36 AM [facility] Blood Venipuncture / Unknown 05/27/2023 4:19 PM CDL COMPANY DRIVER 05/27/2023 4:19 PM CDL COMPANY DRIVER Jessica Trejo PA-C LAB_1 Performing Organization Address [facility] Co de Phone Number [facility] [id number] [place] [phone], [facility] [phone] documented in this encounter Visit Diagnoses Diagnosis Encounter for long-term (current) use of medications Encounter for long-term (current) use of other medications Preop examination Preoperative examination, unspecified documented in this encounter Care Teams Casing Trimmer Relationship Specialty Start Date End Date Jessica Trejo, HERMANN [address] [place] [address] PCP - General 12/19/15 documented as of this encounter
--- OUTSIDE RECORDS SUMMARY | 2023-05-29 09:04 | XMS_ITS | Encounter Summary ---
Author Name Unknown Organization [facility] Address [address] [place] [address] Care Team Providers Care Parole Director Name Role Phone Jessica Trejo PA-C Primary Care Provider [phone] Reason for Visit * Reason Comments Appt. Needed Encounter Details Date Type Department Care Team Description 05/10/2023 [facility] [address] [place], [place] [phone] Jessica Trejo PA-C [address] [place] [address] Appt. Needed Social History Tobacco Use Types Packs/Day Years [...] as of this encounter Nursing Notes * Abbey Noriega - 05/10/2023 10:44 AM CST Patient is out of state on vacation will call back at better time to schedule OPHANER * Maria L Nixon CMA - 05/10/2023 10:39 AM CST Patient is overdue for Blood Pressure check, please schedule patient for clinician/nurse: ClinicianVisit follow up on blood pressure. Patient is also due for Medicare Annual Wellness. OPHANER documented in this encounter Plan of Treatment Not on file documented as of this encounter Visit Diagnoses Not on filedocumented in this encounter Care Teams Parole Director Relationship Specialty Start Date End Date Jessica Trejo, HERMANN [address] [place] [address] PCP - General 12/19/15 documented as of this encounter
--- OUTSIDE RECORDS SUMMARY | 2023-05-29 09:04 | XMS_ITS | Encounter Summary ---
Author Name Unknown Organization [facility] Address [address] [place] [address] Care Team Providers Care Card Puncher Name Role Phone Jessica Trejo PA-C Primary Care Provider [phone] Reason for Visit * Reason Comments Preop Exam DOS 05/29/23 Right Ro tator Cuff at [facility] with Dr. Clayton Olson MD Medicare Annual Wellness Encounter Details Date Type Department Care Team Description 05/27/2023 3:30 PM SAW FEEDER [facility] [address] [place], [place] [phone] Jessica Trejo PA-C [address] [place], [place] [phone] Encounter for Medicare annual wellness exam (Primary Dx); Preop examination; Traumatic complete tear of right rotator cuff, initial encounter; Essential hypertension (HRC); Obesity, Class I, BMI 30-34.9 (HRC); Encounter for long-term (current) use of medications Social History Tobacco Use Types Packs/Day Years [...] on file documented as of this encounter Last Filed Vital Signs Vital Sign Reading Time Taken Comments Blood Pressure 122/60 05/27/2023 3:46 PM SAW FEEDER Pulse 59 05/27/2023 3:46 PM SAW FEEDER Temperature - - Respiratory Rate - - Oxygen Saturation - - Inhaled Oxygen Concentration - - Weight 83 kg (183 lb) 05/27/2023 3:46 PM SAW FEEDER Height 157.5 cm (5' 2) 05/27/2023 3:46 PM SAW FEEDER Body Mass Index 33.47 05/27/2023 3:46 PM SAW FEEDER documented in this encounter Patient Instructions * Patient Instructions* Jessica Trejo PA-C - 05/27/2023 3:30 PM SAW FEEDER Annual Wellness Visit Summary Your care team is recommending the following tests, procedures or services. Some of these recommendations may not be fully covered by Medicare or your insurance. If you have questions, check with your insurance to determine coverage before completing these services. Health Maintenance Due Health Maintenance Due Topic Date Due ??? Dexa 11/15/2017 ??? Zoster/Shingles (3 of 3) 10/16/2021 ??? Prediabetes: HGBA1C 05/09/2023 If your Medicare Welcome or Annual Wellness Visit is showing you are due in the above list, this will be updated after this visit. You had this completed today and are not due for another year. lisinopril-hydroCHLOROthiazide (PRINZIDE) 20-12.5 MG tablet [[id number]] - Do not take on morning of procedure. naproxen sodium (ANAPROX) 220 MG tablet [[id number]] - Do not take for 7 days prior to procedure. Follow your individualized medication recommendations as described above. In addition, please stop all luim-bja-pqcogkz medications including aspirin, ibuprofen (Advil, Motrin), naproxen (Aleve, Naprosyn), herbal remedies and supplements one week prior to procedure unless directed otherwise by your care team. You may continue to take acetaminophen (Tylenol) up to the dayof your procedure. Continue all other medications as currently taking. Let your care team know if you have questions. On the day of your procedure, do not wear any hair product including hair sprays and gels and avoidusing body sprays and deodorants/antiperspirants. Bring with you to the site of the procedure: Any oral appliances or CPAP equipment related to sleep apnea Any other health-related equipment or devices you use daily FEEDER documented in this encounter Progress Notes * Jessica Trejo PA-C - 05/27/2023 3:30 PM CST Medicare Annual Wellness Visit Subjective/Historical: Edel Clark is a 77 y.o. old female Chief Complaint Patient presents with Preop Exam DOS 05/29/23 Right Rotator Cuff at [facility] with Dr. Clayton Olson MD Medicare Annual Wellness Current Concerns: None Advance Directives: On File Observed Vitals: BP 122/60 (BP Location: Right Arm, BP Cuff Size: Large) Pulse (!) 59 Ht 5' 2 (1.575 m) Wt 183 lb (83 kg) BMI 33.47 kg/m?? Physical Exam: General Appearance: alert, well appearing, and in no apparent distress HEENT: oropharynx clear Neck: no lymphadenopathy, no thyromegaly or nodules, and supple Heart: regular rate and rhythm, no murmurs, gallops or rubs, and normal S1 and S2 Lungs: clear to auscultation, no wheezes, rales or rhonchi, equal breath sounds throughout, and normal respiratory effort Abdomen: soft, nondistended, nontender, no palpable masses, and no organomegaly Extremities: no edema Skin: no rashes or worrisome lesions Neurologic: normal speech, no facial droop, alert and oriented x 3, normal gait, and cranial nerves2 -12 intact Psychiatric: affect/mood normal, cooperative, normal judgement/insight, and memory intact Assessment/Plan 1. Encounter for Medicare annual wellness exam Counseling and education provided today includes proper nutrition and health habits, fall prevention, and for those items ordered above. See plan for future preventive services in Patient Instructions. Jessica Trejo PA-C 05/27/2023, 4:20 PM FEEDER * Ev[place]lawson Jessica Plascencia PA-C - 05/27/2023 3:30 PM CST Pre-Operative Assessment 05/27/2023 ET Amb PreOp Assessment Details Procedure Right Rotator Cuff Surgeon Dr. Clayton Olson MD Location Other Other Location Name [facility] Procedure Date 05/29/2023 Morena Hollingsworth is a 77 y.o. old female here for pre-operative evaluation for procedure noted above. Indication: Right rotator cuff tear. Right-hand dominant. Patient Active Problem List Diagnosis Date Noted Mixed hyperlipidemia (HRC) 07/15/2019 Osteopenia 07/15/2019 Essential hypertension (HRC) 07/10/2016 Obesity, Class II, BMI 35-39.9 (HRC) 01/10/2012 Past Medical History: Diagnosis Date Essential hypertension (HRC) 07/10/2016 IFG (impaired fasting glucose) 12/21/2015 Mixed hyperlipidemia (HRC) 07/15/2019 Obesity, Class II, BMI 35-39.9 (HRC) 01/10/2012 Osteopenia 07/15/2019 Pulmonary nodule 01/16/2012 F/U Chest CT on 11/17/14- revealed a stable 3 mm benign-appearing nodule in the lateral aspect of theright lower lobe. 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 Patient is postmenopausal. Family History Problem Relation Age of Onset Cancer, Breast Mother 60 mets to brain Coronary Artery Disease Father Coronary Artery Disease Brother Cancer Brother stomach? Diabetes Brother type II Stroke Brother 52 Kidney Disorder Brother Nephritis, s/p kidney transplant, BP issues Diabetes, Type II Daughter Cancer, Ovary Negative Family History Anesthesia Reaction Negative Family History Review of Systems: 05/27/2023 ET Amb PreOp Assessment Sx Have you had a heart attack in the last 30 days? No Have you experienced chest tightening or chest pressure with activity? No Do you wake at night with difficulty breathing? No Do you have swelling in your feet or ankles? No Do you get short of breath if lying flat at night? No Do you hear wheezing or whistling when you breathe? No Have you had a cough, runny nose, or cold symptoms in the last 2 weeks? No Have you tested positive for Covid in the last 6 months? No Do you have a long-standing cough? No Do you snore or are you sleepy during the day? Yes, snores, no Dx of JENNIE Do you or close relatives have bleeding or clotting problems? No Have you taken Aspirin, Ibuprofen (Advil) or Naproxen (Aleve) in the last 7 days? Yes, stopped taking naproxen on 05/24/23 Do you or close relatives have a history of a severe or life-threatening reaction to anesthesia? No Explanation of positive responses: Estimated Functional Capacity: Can you climb one flight of stairs, or walk up a gradual uphill without stopping? yes, functional capacity is more than or equal to 4 METS Objective BP 122/60 (BP Location: Right Arm, BP Cuff Size: Large) Pulse (!) 59 Ht 5' 2 (1.575 m) Wt 183 lb (83 kg) BMI 33.47 kg/m?? Physical Exam: General Appearance: alert, well appearing, and in no apparent distress Eyes: lids normal, sclera clear, and conjunctiva normal ENT: oropharynx clear Neck: no lymphadenopathy, no thyromegaly or nodules, and supple Heart: regular rate and rhythm, no murmurs, gallops or rubs, and normal S1 and S2 Lungs: clear to auscultation, no wheezes, rales or rhonchi, equal breath sounds throughout, and normal respiratory effort Abdomen: soft, nondistended, nontender, no palpable masses, and no organomegaly Extremities: no edema Skin: no rashes or worrisome lesions Neurologic: normal speech, no facial droop, alert and oriented x 3, normal gait, and cranial nerves2 -12 intact Data: Labs: Yes: CBC, Cr, Na & K. Sodium Date Value Ref Range Status 05/09/2022 140 136 - 145 mmol/L Final Potassium Date Value Ref Range Status 05/09/2022 4.0 3.5 - 5.1 mmol/L Final Creatinine Date Value Ref Range Status 05/09/2022 0.80 0.55 - 1.02 mg/dL Final Hemoglobin Date Value Ref Range Status 05/09/2022 14.2 12.0 - 15.5 g/dL Final Hemoglobin A1C Date Value Ref Range Status 05/09/2022 5.5 <=5.6 % Final Glucose Date Value Ref Range Status 08/03/2020 104 (H) 70 - 100 mg/dL Final Comment: The given reference range is for the fasting state. Non-fasting reference range for glucose is 70 -180 mg/dL. ECG: Recently done on 05/14/23 through [facility] revealing normal sinus rhythm with nonspecific ST abnormality. No significant changes when compared to previous ECG on 05/09/22. Assessment/Plan Patient is medically optimized for planned procedure(s). ICD-10-CM 1. Encounter for Medicare annual wellness exam Z00.00 2. Preop examination Z01.818 Complete Blood Count-No Diff 3. Traumatic complete tear of right rotator cuff, initial encounter S46.011A 4. Essential hypertension (HRC) I10 lisinopril-hydroCHLOROthiazide (PRINZIDE) 20-12.5 MG tablet 5. Obesity, Class I, BMI 30-34.9 (HRC) E66.9 6. Encounter for long-term (current) use of medications Z79.899 Creatinine / GFR Potassium Sodium Special risks: None Medication recommendations: Patient Instructions Annual Wellness Visit Summary Your care team is recommending the following tests, procedures or services. Some of these recommendations may not be fully covered by Medicare or your insurance. If you have questions, check with your insurance to determine coverage before completing these services. Health Maintenance Due Health Maintenance Due Topic Date Due Dexa 11/15/2017 Zoster/Shingles (3 of 3) 10/16/2021 Prediabetes: HGBA1C 05/09/2023 If your Medicare Welcome or Annual Wellness Visit is showing you are due in the above list, this will be updated after this visit. You had this completed today and are not due for another year. lisinopril-hydroCHLOROthiazide (PRINZIDE) 20-12.5 MG tablet [[id number]] - Do not take on morning of procedure. naproxen sodium (ANAPROX) 220 MG tablet [[id number]] - Do not take for 7 days prior to procedure. Follow your individualized medication recommendations as described above. In addition, please stop all ubbl-coo-yamghrj medications including aspirin, ibuprofen (Advil, Motrin), naproxen (Aleve, Naprosyn), herbal remedies and supplements one week prior to procedure unless directed otherwise by your care team. You may continue to take acetaminophen (Tylenol) up to the dayof your procedure. Continue all other medications as currently taking. Let your care team know if you have questions. On the day of your procedure, do not wear any hair product including hair sprays and gels and avoidusing body sprays and deodorants/antiperspirants. Bring with you to the site of the procedure: Any oral appliances or CPAP equipment related to sleep apnea Any other health-related equipment or devices you use daily Electronically signed by: Jessica Trejo PA-C 05/27/2023, 4:19 PM FEEDER documented in this encounter Plan of Treatment Not on file documented as of this encounter Results * Complete Blood Count-No Diff (05/27/2023 4:19 PM SAW FEEDER) [facility] WBC 6.9 3.5 - 10.5 x10(9)/L 05/27/2023 4:30 PM SAW FEEDER [facility] RBC 4.52 3.90 - 5.03 x10(12)/L 05/27/2023 4:30 PM SAW FEEDER [facility] Hemoglobin 13.7 12.0 - 15.5 g/dL 05/27/2023 4:30 PM SAW FEEDER [facility] HCT 42.1 34.9 - 44.5 % 05/27/2023 4:30 PM SAW FEEDER [facility] MCV 93.1 80.0 - 100.0 fL 05/27/2023 4:30 PM SAW FEEDER [facility] MCH 30.3 27.6 - 33.3 pg 05/27/2023 4:30 PM SAW FEEDER [facility] MCHC 32.5 31.5 - 35.2 g/dL 05/27/2023 4:30 PM SAW FEEDER [facility] RDW 14.1 11.9 - 15.5 % 05/27/2023 4:30 PM SAW FEEDER [facility] Platelets 205 150 - 450 x10(9)/L 05/27/2023 4:30 PM SAW FEEDER [facility] Blood Venipuncture / Unknown 05/27/2023 4:19 PM SAW FEEDER 05/27/2023 4:19 PM SAW FEEDER Jessica Trejo PA-C LAB_1 Performing Organization Address City/[facility]/ZIP Co de Phone Number [facility] [address] [place] [address], [facility] [phone] * Sodium (05/27/2023 4:19 PM SAW FEEDER) Sodium 141 136 - 145 mmol/L 05/28/2023 9:36 AM [facility] Blood Venipuncture / Unknown 05/27/2023 4:19 PM SAW FEEDER 05/27/2023 4:19 PM SAW FEEDER Jessica Trejo PA-C LAB_1 [facility] [address] [place] [address], [facility] [phone] * Potassium (05/27/2023 4:19 PM SAW FEEDER) Potassium 3.9 3.5 - 5.1 mmol/L 05/28/2023 9:36 AM SAW FEEDER [facility] Blood Venipuncture / Unknown 05/27/2023 4:19 PM SAW FEEDER 05/27/2023 4:19 PM SAW FEEDER Jessica Trejo PA-C LAB_1 Performing Organization Address City/[facility]/ZIP Co de Phone Number [facility] [address] [place] [address], [facility] [phone] * Creatinine / GFR (05/27/2023 4:19 PM SAW FEEDER) Creatinine 0.76 0.55 - 1.02 mg/dL 05/28/2023 9:36 AM SAW FEEDER [facility] GFR, Estimated >60 >60 mL/min/1.7 3m2 05/28/2023 9:36 AM [facility] Blood Venipuncture / Unknown 05/27/2023 4:19 PM SAW FEEDER 05/27/2023 4:19 PM SAW FEEDER Jessica Trejo PA-C LAB_1 Performing Organization Address [facility]/ZIP Co de Phone Number [facility] [address] [place] [address], [facility] [phone] documented in this encounter Visit Diagnoses Diagnosis Encounter for Medicare annual wellness exam- Primary Preop examination Preoperative examination, unspecified Traumatic complete tear of right rotator cuff, initial encounter Essential hypertension (HRC) Unspecified essential hypertension Obesity, Class I, BMI 30-34.9 (HRC) Obesity, unspecified Encounter for long-term (current) use of medications Encounter for long-term (current) use of other medications documented in this encounter Care Teams Card Puncher Relationship Specialty Start Date End Date Jessica Trejo PA-C [address] [place] [address] PCP - General 12/19/15 documented as of this encounter
--- OUTSIDE RECORDS SUMMARY | 2023-05-29 09:04 | XMS_ITS | Encounter Summary ---
Author Name Unknown Organization [facility] Address [address] [place] [address] Care Team Providers Care Inspector Receiving Name Role Phone JoannaMeliza zafarJessicasantana Plascencia PA-C Primary Care Provider [phone] Reason for Visit * Reason Comments Knee Problem Encounter Details Date Type Department Care Team Description 07/12/2022 1:15 PM ADVERTISING SALES CONSULTANT Therapy [facility] [place] [address] [place], [place] [id number] Moris Caldwell, PT [address] [place], [place] [id number] Status post total left knee replacement (Primary [...] as of this encounter Progress Notes * Morsi Caldwell, PT - 07/12/2022 1:15 PM CST [facility] Services Physical Therapy Progress Note Visit Number: 2 Initial Certification Period: 06/27/2022 to 09/25/22 Referring Provider: Clayton Olson Visit Diagnosis: 1. Status post total left knee replacement Precautions: WBAT SUBJECTIVE: Patient presents in clinic today s/p L TKA DOS 05/16/22 - Is doing 6 minute walks inside house, able to ascend stairs in reciprocal pattern, descends stairs in a step to pattern. Swelling continues to go down, has a deep ache at night when going to sleep. Stretches and HEP are going well, feels tightness and pressure posterior to knee when doing heel prop stretches. Has been ambulating without AD for 5-6 weeks now. Has been somewhat compliant with HEP. OBJECTIVE Current Objective Findings: RPE (0-10) 4/10 on recumbent bike at level 5.0 resistance for 10 minutes AROM Supine Left Knee: Extension ROM: Lacking 5 degrees Flexion ROM: 103 deg Treatment/Education Today: Therapeutic exercise x 30 minutes: - Leg bike was completed with seat= 6, level= 5, minutes completed=10 - Long-sit quad set with gastroc stretch x 20 reps - Supine heel slides x 10 reps - Counter support partial squats x 10 reps - Counter support hip ABD x 10 reps bilateral - Standing TKE with ball on wall 3 hold x 10 reps - Standing toe taps on 8 step x 20 reps - Standing step lunge FLX into EXT x 20 reps - Reviewed and updated HEP with patient to reflect newer modifications and progressions performed in clinic; Provided verbal cues for correct movement patterns and what to avoid for compensatory strategies; Educated on intensity, frequency, and duration as well as greater and less challenging variations - Educated patient on continuing with walking program, stretching to achieve full knee extension, changing positions frequently and promoting physical activity Manual Therapy x 10 minutes: - Long sit with heel prop - superior glides of patella - Supine hooklying - inferior glides of patella Timed Code Treatment Minutes: 40 Total Treatment Minutes: 40 Current Home Exercise Program List: Access Code: [email or web address] Exercises Quad Setting and Stretching - 1 x [...] - 1 sets - 10 reps Standing Terminal Knee Extension at Wall with Ball - 1 x daily - 7 x weekly - 1 sets - 10 reps ASSESSMENT/PROGRESS TOWARD GOALS: Patient is presenting s/p L TKA and functional limitations are consistent with post op status. Patient is progressing well with functional activity tolerance, with limitations in knee ROM slowly improving. Manual therapy techniques were applied this session for patellar mobilization, and education was given to promote continued knee extension stretches at home. TKE exercises were added to HEP. Patient tolerated recumbent bike resistance and standing exercises well today. Will continue to progress to more dynamic functional strengthening tasks while improving ROM. Functional Goals/Outcomes: HEP/Independent Management: Demonstrate independence with HEP and self- management following each treatment session - MET, ongoing ADL's: Perform home management tasks with ease in 4-6 weeks. - PROGRESSING Perform sit to stand transfer using involved lower extremity in 6 weeks. - PROGRESSING Ambulation: Ambulate with normal gait pattern on uneven surfaces with minimal to no symptoms/limp in 6 weeks. - PROGRESSING Ascend/descend stairs independently with reciprocal pattern with minimal to no symptoms and improved lower extremity alignment in 6 weeks PLAN: Progress strengthening as tolerated, leg press, single leg activities, TKE, steps Completed by Timoteo Cross, Physical Therapy Student, under the supervision of Moris Caldwell, DPT/PT Timoteo Cross 3:34 PM 07/12/2022 Student performed part or all of the treatment with therapist present in the room, directing the service, and making all skilled judgements and clinical decisions Moris Caldwell, PT 3:54 PM 07/12/2022 RTISING SALES CONSULTANT documented in this encounter Plan of Treatment Not on file documented as of this encounter Visit Diagnoses Diagnosis Status post total left knee replacement- Primary documented in this encounter Care Teams Inspector Receiving Relationship Specialty Start Date End Date Jessica Trejo PA-C [address] [place] [address] PCP - General 12/19/15 documented as of this encounter
--- OUTSIDE RECORDS SUMMARY | 2023-05-29 09:04 | XMS_ITS | Encounter Summary ---
Author Name Unknown Organization [facility] Address [address] [place] [address] Care Team Providers Care Education Supervisor Name Role Phone Dejan Trejo PA-C Primary Care Provider [phone] Reason for Visit * Reason Comments Refill lisinopril-hydroCHLO ROthiazide (PRINZIDE) 20-12.5 MG tablet [Pharmacy Med Name: LISINOPRIL-HCTZ 20-12.5 MG 20-12.5 Tablet] Encounter Details Date Type Department Care Team Description 09/25/2022 [facility] [address] [place], [place] [phone] Dejan Trejo PA-C [address] [place] [address] Refill (lisinopril-hydroCHLORO thiazide (PRINZIDE) 20-12.5 MG tablet [Pharmacy Med Name: LISINOPRIL-HCTZ 20-12.5 MG 20-12.5 Tablet]) Social History Tobacco Use Types Packs/Day Years [...] as of this encounter Nursing Notes * Sandra Greene, RN - 09/25/2022 1:47 PM CDT Renewed medication per medication refill protocol. Requested Prescriptions Pending Prescriptions Disp Refills lisinopril-hydroCHLOROthiazide (PRINZIDE) 20-12.5 MG tablet [Pharmacy Med Name: LISINOPRIL-HCTZ 20-12.5 MG 20-12.5 Tablet] 90 Tablet 2 Sig: Take 1 Tablet by mouth daily. * Interface, Out Surescripts Prov Query - 09/25/2022 9:16 AM CDT lisinopril-hydroCHLOROthiazide (PRINZIDE) 20-12.5 MG tablet [Pharmacy Med Name: LISINOPRIL-HCTZ 20-12.5 MG 20-12.5 Tablet] Medication started: 05/01/2017 Last ordered by DEJAN TREJO N: 08/21/2021 (400 days ago) QTY: 90, Refills: 3, Sig: take 1 tabletby mouth daily. (unchanged) -> Refill x 9 months, qty: 90, refills: 2 (until due for an office visit, Cr check, K check and Na check) Last qualifying visit: 05/09/2022 (with DEJAN TREJO) Next scheduled visit: None Cr: 0.8 mg/dL on 05/09/2022 Na: 140 mEq/L on 05/09/2022 K: 4 mEq/L on 05/09/2022 Md7 Embedded Refills, Reference: [id number], 09/25/2022 9:16:04 AM CDT, Pool: PRLK REFILL ([id number]) * Interface, Out [employer]Media Prov Query - 09/25/2022 9:16 AM CDT The following lab order(s) may be associated with the Result Note below: CREATININE / GFR Notes recorded by Dejan Trejo on 05/11/2022 at 7:28 PM ROLLER HELPER Normal kidney function. * Interface, Out [employer] Query - 09/25/2022 9:16 AM CDT The following lab order(s) may be associated with the Result Note below: ELECTROLYTE PANEL Notes recorded by Dejan Trejo on 05/11/2022 at 7:28 PM ROLLER HELPER Your electrolytes are within normal range. documented in this encounter Plan of Treatment Not on file documented as of this encounter Visit Diagnoses Diagnosis Essential hypertension (HRC) Unspecified essential hypertension documented in this encounter Care Teams Education Supervisor Relationship Specialty Start Date End Date Dejan Trejo PA-C [address] [place] [address] PCP - General 12/19/15 documented as of this encounter
[2023-05-29] MEDS: LACTATED RINGERS 1000 ML 1,000 ML 100 ML IV (09:15)
[2023-05-29] MEDS: SODIUM CHLORIDE 0.9 % (FLUSH) 10 ML SYRINGE IVF (09:20)
[2023-05-29] MEDS: MIDAZOLAM HCL 1 MG/ML inj IVP (11:01)
[2023-05-29] MEDS: fentaNYL 100 MCG/2 ML inj IVP (11:01)
--- NOTE | 2023-05-29 11:09 | SUR.PREOP ---
TIME?OUT:?1100 PT/RN/MDA?VERIFICATION?OF?SURGICAL?SITE Right Shoulder,?PROCEDURE Nerve Block,?AND?CONSENT OBTAINED?PRIOR?TO?INVASIVE?PROCEDURE.
--- NOTE | 2023-05-29 11:12 | P.NB_ITS ---
Nerve Block Nerve Block Time Seen by Provider: 11:02 Date Seen: 05/29/23 Type of block requested by surgeon for post-operative analgesia: supraclavicular Side: right Time out performed: Yes Verification of patient name: Yes Verification of date of : Yes Site marking: site marked Name of person performing procedure: Scott Continuous monitoring Was continuous monitoring of O2 sat, B/P, public information relations manager, recorded every 15 minutes?: Yes Procedure Checklist: sterile prep, needles and gloves Ultrasound guided. Images saved: Yes Medications given in 5ml increments after negative aspiration: Ropivicaine %: 0.5 mL: 20 Needle gauge: 22 Decadron (mg): 10 Precedex (mcg): 25 Patient tolerated procedure well: Yes Block Charges Block Charge (with Pro Fee): Brachial Plexus Use of Ultrasound Machine for Block: Yes- US Guidance/pain block
--- NOTE | 2023-05-29 11:13 | W.ANESCHARGE ---
Anesthesia Charges Start Date/Time Anesthesia Start Date: 05/29/23 Anesthesia Start Time: 11:17 Stop Date/Time Anesthesia Stop Date: 05/29/23 Anesthesia Stop Time: 13:58 Summary Extremes of Age - Over 70 or under 1: MDA
[2023-05-29] MEDS: CLINDAMYCIN 900 MG/50 ML-D5W 900 MG/50 ML PIGGYBACK 100 MG IVPB (11:40)
[2023-05-29] MEDS: EPINEPHrine 1 MG in SODIUM CHLORIDE IRRIG SOLUTION 3,000 ML 3001 MG IRRIGATION ×4 (12:17→12:57)
[2023-05-29] MEDS: EPINEPHrine 1 MG in SODIUM CHLORIDE IRRIG SOLUTION 3,000 ML 9003 MG IRRIGATION ×3 (13:05→13:25)
[2023-05-29] MEDS: SODIUM CHLORIDE IRRIG SOLUTION 3,000 ML, EPINEPHrine 1 MG IRRIGATION (13:05)
--- NOTE | 2023-05-29 13:38 | PM.ORPRC ---
Procedure Note Date of procedure: 05/29/23 Procedure: PREOPERATIVE DIAGNOSES: 1. Right shoulder rotator cuff tear. 2. Right shoulder subacromial impingement syndrome. POSTOPERATIVE DIAGNOSES: 1. Right shoulder rotator cuff tear - supraspinatus. 2. Right shoulder subacromial impingement syndrome. NAME OF OPERATION: 1. Right shoulder arthroscopic rotator cuff repair. 2. Right shoulder arthroscopic bursectomy, subacromial decompression/partial acromioplasty. SURGEON: Clayton Olson MD MOTHER SUPERIOR: Mahamed Wilder PA-C. Of note, a skilled certified medical assistant was critical for this case to aide in patient positioning, suture manipulation, arm positioning, instrument positioning, and closure. ANESTHESIA: General plus preoperative supraclavicular block. EBL: 25 mL IMPLANTS: Arthrex 4.75 mm BioComposite SwiveLock suture anchor (x2) Arthrex 5.5 mm BioComposite SwiveLock suture anchor (x3) Arthrex 2.6 mm knotless FiberTak RC (x1) COMPLICATIONS: None evident INDICATIONS: The patient is a pleasant, 77-year-old female who has experienced right shoulder pain that has been increasing in recent time. This originated from a fall from standing height resulting in severe dysfunction of the right shoulder in an acute injury recently. Physical exam and imaging were consistent with a rotator cuff tear. Given their findings, as well as the weakness and pain, and inadequate response to nonoperative management, recommendation was made for surgery. FINDINGS: Exam under anesthesia revealed stable shoulder with excellent range of motion. The diagnostic arthroscopy revealed grade 2 chondromalacia humeral head diffusely. The Subscapularis tendon was torn from its upper border with mild retraction. The long head of the biceps tendon was intact without significant tearing or subluxation out of the groove. The superior rotator cuff tendon was found to be torn full-thickness throughout the entire supraspinatus and infraspinatus with retraction to the medial humeral head. The labrum was degeneratively frayed but minimally torn. No loose bodies were identified within the pouch or subscapularis recess. PROCEDURE: Following a thorough discussion of risks, benefits, and alternatives, consent was obtained and the right shoulder was marked. The patient was brought to the operating room and placed supine on the operating table. Induction of anesthesia was completed after preoperative supraclavicular block was administered in preop holding. Appropriate time out was performed identifying proper patient, site, and procedure. 2 g IV Ancef was administered within 1 hour of incision preoperatively. The right upper extremity was prepped and draped in the appropriate sterile fashion using ChloraPrep prep. This was after the patient was positioned in the beach chair with their head in neutral alignment and all bony prominences well padded. The shoulder was insufflated with 20mL of normal saline via an 18g spinal needle from a posterior approach. An 11 blade skin incision allowed a blunt trochar to be inserted and diagnostic arthroscopy to be performed with the findings as noted above. An anterior portal was established with an outside in technique. This allowed the probe to be inserted and confirm the diagnostic arthroscopic findings. The shaver was then inserted and allowed debridement of humeral head loose chondral flaps and lesser tuberosity bone. Following this, the upper border subscapularis was repaired after debriding the lesser tuberosity with the shaver and [place] cautery. Subscapularis was captured in horizontal mattress fashion with a fiber tape suture. The tails were brought to a single anchor in the lesser tuberosity with excellent reapproximation of the subscap tendon and good excursion/tension. Thereafter, the subacromial space was entered. Here, a complete bursectomy and partial acromioplasty/subacromial decompression was performed with a combination of radiofrequency ablator, the shaver, and a 5.5 mm bur. Further inspection of the supraspinatus and infraspinatus rotator cuff was performed. This identified the tear as noted above. The margins of the tear were debrided, and the greater tuberosity was debrided with a combination of the apollo cautery, shaver, and bur on reverse setting. [After gentle decortication, a speed bridge configuration with a medial claire was engaged. Due to the massive tear size, 3 medial anchors were placed and the sutures were passed with a fiber link. (of note, 1 of the anchors ended up pulling on it and could not be reused as the bone quality could not hold it-2.6 mm FiberTak RC.) The eyelet suture tails were then retrieved and tied and cinched down for the medial claire purpose involving the anterior and middle medial row anchors. A tail from each of the medial row anchor FiberTapes were then brought to 1 of to lateral row anchors along with a suture securing a small dog ear on either the posterior or anterior side, respectively with a FiberLink and a FiberWire in a luggage tag fashion. Excellent reapproximation of the tissue to the greater tuberosity was achieved with broad footprint compression. The rotator cuff showed excellent reapproximation of the greater tuberosity with good security upon probing. Prior to anchor regional company flatbed truck driver removal, the eyelet sutures were tugged on for each anchor and found that the anchor had excellent stability within the bone. The shoulder was placed through range of motion and found to be stable. The rotator cuff was re-probed and found to be stable. Instruments were removed. Excess fluid was drained, closure performed with 4-0 Monocryl and Steri-Strips. Dressings were applied. Sling was applied. The patient was awoken from anesthesia and transferred to the PACU in stable condition. A skilled certified medical assistant was critical for this case to aid in patient positioning, limb positioning, skill to manipulate arthroscopic instruments and camera, suture management, patient safety, and closure. PLAN: 1. Elbow, forearm, wrist and digit range of motion as tolerated. 2. Encouraged ice. 3. Percocet for pain as needed. 4. Sling at all times except for ROM and showering. 5. Follow up with PA visit in 1-2 weeks for wound check. Initiate physical therapy for passive range of motion to begin around week 4. Initiate active assisted range of motion at 7-8 weeks. Hold on strengthening until 10-11 weeks. May do pendulums now.
--- NOTE | 2023-05-29 13:57 | P.ANES_ITS ---
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
--- NOTE | 2023-05-29 14:29 | SUR.PHASEI ---
patient met discharge criteria per anesthesia
--- NOTE | 2023-05-29 14:37 | P.ANES_ITS ---
Anesthesia Charges Start Date/Time Anesthesia Start Date: 05/29/23 Anesthesia Start Time: 11:17 Stop Date/Time Anesthesia Stop Date: 05/29/23 Anesthesia Stop Time: 13:58 Summary Extremes of Age - Over 70 or under 1: PYTHON ARCHITECT
== END 2023-05-29 16:17 | disposition home or self-care (01) ==
PROVIDERS: Visit Provider Orthopaedic Surgery Sports Medicine
PROC: (CPT 29805; principal; 2023-05-29 11:30)
DX: S46.011A Strain of muscle(s) and tendon(s) of the rotator cuff of right shoulder, initial encounter (principal); M75.41 Impingement syndrome of right shoulder; G89.18 Other acute postprocedural pain; I10 Essential (primary) hypertension; E66.9 Obesity, unspecified; Z68.35 Body mass index [BMI] 35.0-35.9, adult
CPT/HCPCS: 29827; 29826; 01630; 64415; 76942; 99100; C1713; J0171; J0330; J0736; J1100; J2250; J2704; J2710; J2795; J3010; J7120; L3670

== ENCOUNTER 2023-10-04 09:04 | Outpatient (CLI) | payer MEDICARE, SELFPAY ==
--- OUTSIDE RECORDS SUMMARY | 2023-10-04 09:08 | XMS_ITS | Encounter Summary ---
Author Organization [facility] Address [address] [place] [address] Care Team Providers Care Wallpaper Remover Steam Name Role Phone JoannaMeliza zafarJessicasantana Plascencia PA-C Primary Care Provider [phone] Reason for Visit * Reason Comments Shoulder Problem Encounter Details Date Type Department Care Team (Late st Contact Info) Description 2023 4:15 PM CDT Therapy [facility] [address] [place] [address] Kristina Lockett, PT [address] [place] [address] Stiffness of right shoulder joint (Primary Dx); Aftercare following surgery of the musculoskeletal system Social History Tobacco Use Types Packs/Day Years Used Date Smoking Tobacco: Never Passive Smoke Exposure: Never Smokeless Tobacco: Never Alcohol Use Standard Drinks/Week Comments Yes 1 (1 standard drink = 0.6 oz pur e alcohol) monthly PHQ-2 Answer Date Recorded PHQ-2 Score 0 05/27/2023 Sex and Gender Information Value Date Recorded Sex Assigned at Not on file Gender Identity Not on file Sexual Orientation Not on file documented as of this encounter Progress Notes * Kristina Lockett, PT - 2023 4:15 PM CDT Physical Therapy Progress Note Visit Number: 3 Initial Certification Period: 06/26/2023 to 09/24/23 Referring Provider: Clayton Olson Date of Surgery: 05/29/23 Surgical Procedure: R shoulder arthroscopy with SAD and RCR Visit Diagnosis: 1. Stiffness of right shoulder joint 2. Aftercare following surgery of the musculoskeletal system Precautions: Evaluate & treat and PROM: 4-8 weeks; AAROM at 8 weeks; Hold on strengthening until 11 weeks SUBJECTIVE: Reports that things are all right. No significant changes. Continues to have difficulty reaching behind back and overhead. OBJECTIVE Current Objective Findings: Shoulder PROM: Flexion: 160 degrees, + pain at end range Abduction: 154 degrees, + pain at end range IR: 80 degrees ER: 72 degrees Shoulder AROM: Supine Flexion: 145 degrees, + pain at end range Supine: scapular compensation with flexion/abduction AROM, fatigues quickly, mild pain symptoms Treatment/Education Today: Therapeutic Exercise x 40 minutes: Includes time spent on objective measures noted above UBE x 6 minutes, seat 4, Level 3.0, alt fwd/retro every minute Attempted wall slides - unable to perform without scapular elevation compensation Standing Flexion AAROM with dowel x 10 reps Standing Abduction AAROM - painful and unable to perform without scapular elevation Supine Flexion AAROM x 10 reps Supine Flexion PROM x 20 reps Supine Abduction AAROM x 10 reps Supine Abduction PROM x 20 reps Supine IR/ER PROM x 10 reps Supine Flexion to 90 AROM x 10 reps, fatigued, difficulty maintaining elbow extension SL Abduction to 90 AROM x 10 reps SL ER x 3 sets x 10 reps x 0-1# Bicep Curls x 3 sets x 10 reps x 1#, cued for full elbow extension and to minimize scapular elevation Timed Code Treatment Minutes: 40 Total Treatment Minutes: 40 Current Home Exercise Program List: Access Code: [email or web address] Exercises - Supine Shoulder Flexion with Dowel - 2 x daily - 7 x weekly - 15 reps - Supine Shoulder Abduction AAROM with Dowel (Mirrored) - 2 x daily - 7 x weekly - 15 reps - Supine Shoulder Flexion Extension Full Range AROM - 7 x weekly - 3 sets - 10 reps - Sidelying Shoulder Abduction Palm Forward - 7 x weekly - 3 sets - 10 reps - Sidelying Shoulder ER with Towel and Dumbbell - 7 x weekly - 3 sets - 10 reps - 1# weight - Seated Single Arm Bicep Curls with Rotation and Dumbbell - 1 x daily - 7 x weekly - 3 sets - 10 reps - 1# weight ASSESSMENT/PROGRESS TOWARD GOALS: Patient returns to physical therapy 11 weeks s/p R RTC Repair. Patient continues to demonstrate significant fatigue and muscle weakness with AROM of R shoulder. Modified home program for AROM to assist with strengthening and facilitate upright elevation without scapular compensation. She would continue to benefit from skilled physical therapy services to address continued deficits in order to return patient to previous level of function, however patient is limiting number of visits due to copaycosts. Spaced visits out to every other week in order to continue to address strengthening deficits. Functional Goals/Outcomes: HEP/Independent Management: Demonstrate independence with HEP and self- management following each treatment session. Progressing. ADL's: Resume previous sleep pattern without awakening due to symptoms in 2-3 weeks. MET. Perform home management tasks with ease in 8-10 weeks. Progressing. Dress, including don and doff shirt and pants with ease in 4-8 weeks. Progressing Don/doff sling without assistance in 1-2 weeks. MET. Outcomes: Improve Functional outcome score to at least 20% in 12 weeks. Progressing. PLAN: Progress per protocol. Progress AAROM/AROM as able, initiate strengthening as tolerated. documented in this encounter Plan of Treatment Not on file documented as of this encounter Visit Diagnoses Diagnosis Stiffness of right shoulder joint- Primary Aftercare following surgery of the musculoskeletal system Aftercare following surgery of the musculoskeletal system, NEC documented in this encounter Care Teams Wallpaper Remover Steam Relationship Specialty Start Date End Date Jessica Trejo PA-C [address] [place] [address] PCP - General 12/19/15 documented as of this encounter
--- OUTSIDE RECORDS SUMMARY | 2023-10-04 09:08 | XMS_ITS | Encounter Summary ---
Author Organization [employer] Address [address] [address] Care Team Providers Care Crm Marketing Specialist Name Role Phone JoannaMeliza zafarJessicasantana Plascencia PA-C Primary Care Provider [phone] Reason for Referral * Therapies (Routine) - Closed Specialty Diagnoses / Procedures Referred By Mily johnson Referred To Contact Diagnoses Stiffness of right shoulder joint Aftercare following surgery of the musculoskeletal system Clayton Olson MD [address] [place] [address] Referral ID Status Reason Start Date Expiration Date Visits Re quested Visits Authorized [id number] Closed 07/17/2023 10/15/2024 1 1 Scheduling Instructions If scheduling assistance is needed, please inquire with the medical office staff upon exiting your appointment or contact the ordering clinic for recommended locations. This recommended service/s may not be covered by your insurance coverage. To find out your specific benefit coverage, please call the number on your insurance card. Question Answer Therapy Physical Therapy PT: Follow Up Every week How many times per week? 1 For how many weeks? 6 PT: Visit Type Follow Up PT: Type of Revisit In-Person Visit Location: [place] PT: Treatment Team Primary provider - Can schedule with Remedios or Fabiola Waitami? Medium (Non-Urgent) ESSES CHEMICAL DESIGN ENGINEER Reason for Visit * Reason Comments Shoulder Problem Encounter Details Date Type Department Care Team (Late st Contact Info) Description 07/17/2023 11:45 AM PROCESSES CHEMICAL DESIGN ENGINEER Therapy [facility] [place] [address] [place] [address] Kristina Lockett, PT [address] [place] [address] Stiffness of right shoulder joint (Primary Dx); [...] Progress Notes * Kristina Lockett, PT - 07/17/2023 11:45 AM CST Physical Therapy Progress Note Visit Number: 2 Initial Certification Period: 06/26/2023 to 09/24/23 Referring Provider: Clayton Olson Date of Surgery: 05/29/23 Surgical Procedure: R shoulder arthroscopy with SAD and RCR Visit Diagnosis: 1. Stiffness of right shoulder joint 2. Aftercare following surgery of the musculoskeletal system Precautions: Evaluate & treat and PROM: 4-8 weeks; AAROM at 8 weeks; Hold on strengthening until 11 weeks SUBJECTIVE: Patient presents to therapy 7 weeks post-op. Reports that she had her 6-week follow-up last week with her surgeon and per patient report surgeon was not happy with her ROM and wanted it to be further. She reports that she was cleared from the sling and able to use UE for daily activities. Reports her lifting restriction is 10 lbs. Her recovery is going well. Minimal pain in shoulder. Is able to sleep on her R side for 6 hours, but then will wake up due to pain. Has been performing exercises as prescribed. OBJECTIVE Current Objective Findings: Observation: patient presents without sling Shoulder PROM: Flexion: 145 degrees Abduction: 120 degrees IR: 80 degrees ER: 65 degrees Shoulder AROM: Active elevation ~45 degrees Joint mobility: GH: guarded Flexibility: Bicep minimal restriction Neurological Screen: Dermatomes: Sensation intact Strength: not tested Functional Tests: Hands behind head restricted/painful. Hands behind back restricted/painful. Hands on opposite shoulders restricted/painful. Treatment/Education Today: Therapeutic Exercise x 35 minutes: Includes time spent on objective measures noted above PROM x 20 min all directions, verbal cues to promote neuromuscular relaxation and reduce guarding Supine AAROM flexion, abduction, ER x 10 reps each Supine Bicep Stretch x 30 sec hold Timed Code Treatment Minutes: 35 Total Treatment Minutes: 35 Current Home Exercise Program List: Access Code: [email or web address] Exercises - Standing 'L' Stretch at Counter - 1-3 x daily - 7 x weekly - 10 reps - Supine Shoulder Flexion Overhead with Dowel (Mirrored) - 2 x daily - 7 x weekly - 10-15 reps - Supine Shoulder Abduction AAROM with Dowel (Mirrored) - 2 x daily - 7 x weekly - 10-15 reps - Supine Shoulder External Rotation in 45 Degrees Abduction AAROM with Dowel (Mirrored) - 2 x daily- 7 x weekly - 10-15 reps ASSESSMENT/PROGRESS TOWARD GOALS: Patient returns to physical therapy 7 weeks s/p R RTC Repair. Demonstrates improved ROM of R shoulder. Continues to demonstrate ROM and strength deficits consistent with current post-op status. Tolerated initiation of AAROM exercises as patient has been cleared for AROM/AAROM per patient report. Would continue to benefit from skilled physical therapy services to address continued deficits in order to return patient to previous level of function. Functional Goals/Outcomes: HEP/Independent Management: Demonstrate independence with HEP and self- management following each treatment session. Progressing. ADL's: Resume previous sleep pattern without awakening due to symptoms in 2-3 weeks. Progressing. Perform home management tasks with ease in 8-10 weeks. Progressing. Dress, including don and doff shirt and pants with ease in 4-8 weeks. Progressing Don/doff sling without assistance in 1-2 weeks. MET. Outcomes: Improve Functional outcome score to at least 20% in 12 weeks. Progressing. PLAN: Progress per protocol. Clarify weight-restrictions with surgeon. ESSES CHEMICAL DESIGN ENGINEER documented in this encounter Plan of Treatment Scheduled Referrals Name Type Priority Associated Diagnoses Orde r Schedule Rehab Therapies Follow Up Referral Routine Stiffness of right shoulder joint Aftercare following surgery of the musculoskeletal system Ordered: 07/17/2023 documented as of this encounter Visit Diagnoses Diagnosis Stiffness of right shoulder joint- Primary Aftercare following surgery of the musculoskeletal system Aftercare following surgery of the musculoskeletal system, NEC documented in this encounter Care Teams Crm Marketing Specialist Relationship Specialty Start Date End Date Jessica Trejo PA-C [address] [place] [address] PCP - General 12/19/15 documented as of this encounter
--- OUTSIDE RECORDS SUMMARY | 2023-10-04 09:08 | XMS_ITS | Clinical Summary ---
Author Organization [facility] Address [address] [place] [address] Care Team Providers Care Cell Tender Helper Name Role Phone Jessica Trejo PA-C Primary Care Provider [phone] Source Comments You are receiving this document as you are listed as the primary care provider,follow-up provider, or the patient has been referred to you for consultation.This is in compliance with the Medicare and[facility] EHR Incentive Program,which states Providers who transition their patient to another setting of careor provider of care or refers their patient to another provider of care shouldprovide summary care record for each transition of care or referral. Coffee Meets Bagel Allergies Active Allergy Reactions Criticality Noted Date Comments Penicillins Anaphylaxis High 01/04/2012 Medications Medication Sig Dispensed Refills Start Date End Date Status naproxen sodium (ANAPROX) 220 MG tablet Take 1 Tablet (220 mg) by mouth two times a day with meals. 60 Tablet 05/09/2022 Active lisinopril-hydroCHLORO thiazide (PRINZIDE) 20-12.5 MG tabletIndications:Esse ntial hypertension (HRC) Take 1 Tablet by mouth daily. 90 Tablet 3 05/27/2023 Active Active Problems Problem Noted Date Diagnosed Date [...] Encounters Date Type Department Care Team Description 08/28/2023 10:00 AM CDT Therapy [facility] at [address] [place] [address] Mitali Sotomayor E, PT Stiffness of right shoulder joint (Primary Dx); Aftercare following surgery of the musculoskeletal system 2023 4:15 PM CDT Therapy [facility] at [address] [address] Kristina Lockett M, PT Stiffness of right shoulder joint (Primary Dx); Aftercare following surgery of the musculoskeletal system 08/07/2023 10:00 AM CDT Therapy [facility] at [address] [place] [address] Mitali Sotomayor E, PT Stiffness of right shoulder joint (Primary Dx); Aftercare following surgery of the musculoskeletal system; Poor posture 08/02/2023 7:30 AM CDT Therapy [facility] at [address] [place] [address] Kristina Lockett M, PT Stiffness of right shoulder joint (Primary Dx); Aftercare following surgery of the musculoskeletal system 07/17/2023 11:45 AM ASSISTANT CITY ATTORNEY Therapy [facility] at [address] [place] [address] Kristina Lockett M, PT Stiffness of right shoulder joint (Primary Dx); Aftercare following surgery of the musculoskeletal system from Last 3 Months Immunizations Name Administration Dates Next Due Influenza IIV3 (Trivalent) F martínzone Highdose, 65+ Yrs (41213) 03/21/2021 Influenza IIV4 (Quadrivalent) 0.5mL (39123) 03/13 Influenza IIV4 (Quadrivalent ) Fluad, 65+ Yrs 03/14/2022 Influenza IIV4 (Quadrivalent ) Fluzone, 65+ Yrs 03/07/2023,03/21/2021,03/19/2020 Influenza, Unspecified Formulation 03/28/2012 Moderna Bivalent 12+ 03/14/2022 PCV13 (Prevnar) 05/08/2018 PPSV23 (Pneumovax) 12/21/2015 Pfizer 23/24 12+ 03/07/2023 Pfizer Monovalent 12+ 09/07/2021 Pfizer [...] Comments Blood Pressure 122/60 05/27/2023 3:46 PM ASSISTANT CITY ATTORNEY Pulse 59 05/27/2023 3:46 PM ASSISTANT CITY ATTORNEY Temperature 36.7 ??C (98.1 ??F) 07/15/2019 11:[address] Respiratory Rate - - Oxygen Saturation 95% 07/15/2019 11:35 AM ASSISTANT CITY ATTORNEY Inhaled Oxygen Concentration - - Weight 83 kg (183 lb) 05/27/2023 3:46 PM ASSISTANT CITY ATTORNEY Height 157.5 cm (5' 2) 05/27/2023 3:46 PM ASSISTANT CITY ATTORNEY Body Mass Index 33.47 05/27/2023 3:46 PM ASSISTANT CITY ATTORNEY Plan of Treatment Health Maintenance Due Date Last Done Comments Dexa 11/15/2017 11/15/2014 Zoster/Shingles (3 of 3) 10/16/2021 08/21/2021, 12/11 Prediabetes: HGBA1C 05/09/2023 05/09/2022, 08/21/2021, 07/15/2019, Additional history exists COVID-19 Vaccine ( season) 2023 03/07/2023, 03/14/2022, 09/07/2021, Additional history exists Medicare Annual Wellness Visit 05/27/2024 05/27/2023, 08/21/2021, 08/03/2020, Additional history exists DTaP/Tdap/Td (2 - Tdap) 12/20/2025 12/21/2015 Colonoscopy 02/01/2026 02/02/2016 (Completed) Hep C Screening (Preventive Services) Completed 05/08/2018 Pneumococcal 65+ Yrs Completed 05/08/2018, 12/21/19 16 Cholesterol Discontinued 08/21/2021, 07/12, 07/15/2019, Additional history exists Influenza Completed 03/07/2023, 06/2021, [...] Procedure Name Priority Date/Time Associated Diagnosis Comments HGB A1C Routine 05/09/2022 2:15 PM ASSISTANT CITY ATTORNEY Urine ketones Other specified disorders of carbohydrate metabolism (HRC) LIPID PANEL & DIRECT LDL (IF NEEDED) Routine 08/21/2021 10:18 AM CDT Mixed hyperlipidemia HEPATITIS C ANTIBODY, WITH REFLEX Routine 05/08/2018 10:57 AM ASSISTANT CITY ATTORNEY Need for hepatitis C screening test DXA BONE DENSITY STUDY Routine 11/15/2014 11:53 AM CDT Postmenopausal status (age-related) (natural) from Last 3 Months or Most Recently Relevant to Health Maintenance Results * Hgb A1C (Expected: Now) - Collect in Lab (05/09/2022 2:15 PM ASSISTANT CITY ATTORNEY) Pathologist [facility] Hemoglobin A1C 5.5 <=5.6 % 05/10/2022 9:24 AM ASSISTANT CITY ATTORNEY [facility] Blood Venipuncture / Unknown 05/09/2022 2:15 PM ASSISTANT CITY ATTORNEY 05/09/2022 2:15 PM ASSISTANT CITY ATTORNEY Jessica Trejo PA-C LAB_1 Performing Organization Address City/State/[facility] Co de Phone Number [facility] [address] [place] [address], [facility] [phone] * (ABNORMAL) Lipid Panel - LDLD If Trig High (08/21/2021 10:18 AM CDT) Cholesterol 214(H) 0 - 199 mg/dL 08/21/2021 12:49 PM CDT [facility] Triglyceride 113 <=149 mg/dL 08/21/2021 12:49 PM CDT [facility] HDL Cholesterol 52 >=40 mg/dL 12:49 PM CDT [facility] LDL, Calculated 139(H) <130 mg/dL 12:49 PM T [facility] Non HDL Chol, Calculated 162(H) <=159 mg/dL 08/21/2021 12:49 PM T [facility] Cholesterol/HDL Ratio 4.1 08/21/2021 12:49 PM CDT [facility] Hours Fasting 12 08/21/2021 12:49 PM CDT [facility] Blood Venipuncture / Unknown 08/21/2021 10:18 AM CDT 08/21/2021 10:18 AM CDT Jessica Trejo PA-C LAB_1 Performing Organization Address City/[facility]/ZIP Co de Phone Number [facility] [address] [place] [address], [facility] [phone] [facility] [address] [place] [address], [facility] [phone] * Hepatitis C Virus Dipika with Reflex (05/08/2018 10:57 AM ASSISTANT CITY ATTORNEY) Hepatitis C Antibody Nonreactive Nonreactive PN SOFT 05/08/2018 10:5 7 AM ASSISTANT CITY ATTORNEY 05/08/2018 2:58 PM ASSISTANT CITY ATTORNEY Narrative PN SOFT - 05/08/2018 3:53 PM ASSISTANT CITY ATTORNEY Performed at [address] [address] CLIA number [id number] Jessica Trejo PA-C LAB_1 Performing Organization Address [facility] de Phone Number SOFT [address] [place] [phone] * DXA BONE DENSITY STUDY (11/15/2014 11:53 AM CDT) Anatomical Region Laterality Modality Other Narrative 11/15/2014 11:53 AM CDT Chris Van MD ? 11/15/2014 11:53 AM Bone Mineral Density Evaluation Reading Physician: ??Chris Van MD Densitometer: ??[employer] [id number] OSTEOPOROSIS RISK ASSESSMENT: Risk Factors From Patient Questionnaire: ?? 69 y.o. ??female Post-menopausal, not on systemic hormone replacement therapy Able to rise from a chair easily without use of the arms: yes Low body weight (less than 125 lbs): no Height loss > 1.5 inches: no Calcium intake: not adequate Vitamin D intake: uncertain Family History of Spine or Hip Fracture (parent or sibling): no Self-reported prior fractures (indicating a higher risk of future fracture): none Falls last 12 months: none BONE MINERAL DENSITY: Lumbar Spine Vertebrae Included: L1, L2, L3 Bone Mineral Density (gm/cm2): 0.958 T-Score: -0.5 Z-Score: 1.4 Total Hip Bone Mineral Density (gm/cm2): 0.773 T-Score: -1.4 Z-Score: 0 Femoral Neck Bone Mineral Density (gm/cm2): 0.594 T-Score: -2.3 Z-Score: -0.6 10 Year Fracture Risk Major (%): 12 Hip (%): 2.3 Vertebrae are eliminated from spine analysis IF they are likely to show falsely elevated bone density due to fracture, degenerative spondylosis, surgical hardware, or artifacts Scan quality: very good VERTEBRAL FRACTURE ASSESSMENT: No vertebral fractures from T4 ??through L4 COMPARISON TO PRIOR STUDY: This is a baseline study here at [facility] ASSESSMENT: 1. Moderate low bone mass, based on T-score(s) at femoral neck 2. Patient is at mildly increased risk of fracture, based on age, fracture history, bone mineral density at all skeletal sites, and presence or absence of other risk factors. RECOMMENDATIONS: ?? 1. Optimize calcium and vitamin D intake 2. Repeat DXA in 3 years FRAX Explanation: The 10 year risks of hip and major osteoporotic fractures (clinical spine, forearm, hip or shoulder fracture) are calculated by the FRAX algorithm based on femoral neck bone density, age, gender, race/ethnicity, weight, height, previous fracture, parental hip fracture, smoking status, glucocorticoid intake, history of RA, secondary osteoporosis, and high alcohol consumption. FRAX Fracture Risk Categories in terms of major osteoporotic fractures: < 10% = low fracture risk ? 10% and <15% = mildly increased fracture risk ? 15% and <20% = moderately increased fracture risk ? 20% and <30% = high fracture risk ? 30% = very high fracture risk National Osteoporosis Foundation Treatment Guideline A clinician may consider FDA-approved medical therapies in postmenopausal women and men aged 50 years and older, if one or more of the following is present (clinical correlation required and therapy may not always be indicated): 1. The patient has a hip or vertebral fracture. 2. T-score ? -2.5 at the femoral neck, hip, or spine after appropriate evaluation to exclude secondary causes. 3. Low bone mass (T-score between -1.0 and -2.5 at the femoral neck, hip or spine) and a 10-year probability of a hip fracture ? 3% or a 10-year probability of a major osteoporosis-related fracture ? 20% based on the FRAX scores. Chris Van MD RADIOLOGY/AR from Last 3 Months or Most Recently Relevant to Health Maintenance Advance Directives Documents on File Type Date Recorded Patient Direct Care Professional Expl anation HEALTHCARE DIRECTIVE 05/20/2022 3 Care Teams Cell Tender Helper Relationship Specialty Start Date End Date Jessica Trejo PA-C [address] [place] [address] PCP - General 12/19/15
--- OUTSIDE RECORDS SUMMARY | 2023-10-04 09:08 | XMS_ITS | Encounter Summary ---
Author Organization [employer] Address [address] [place] [address] Care Team Providers Care Dietist Name Role Phone JoannaMeliza zafarJessicasantana Plascencia PA-C Primary Care Provider [phone] Reason for Visit * Reason Comments Shoulder Problem Encounter Details Date Type Department Care Team (Late st Contact Info) Description 08/02/2023 7:30 AM CDT Therapy [facility] [address] [place] [address] Kristina Lockett, PT [address] [place] [address] Stiffness of right shoulder joint [...] Progress Notes * Kristina Lockett, PT - 08/02/2023 7:30 AM CDT Physical Therapy Progress Note Visit Number: [...] strengthening until 11 weeks SUBJECTIVE: Reports that her shoulder is doing well. She made the mistake of trying to grab a crockpot off a high shelf that was too heavy to lift one-handed so she had to assist with her R hand, no snapping or popping but did have some moderate soreness in shoulder afterwards. Just has a little of soreness today with movement of R shoulder. Exercises are going well. Sleeping continues to go well, will have some initial discomfort when laying on R side, but can tolerate sleeping on it without issue. OBJECTIVE Current Objective Findings: Observation: demonstrates nearly full ROM with flexion and abduction with claire Shoulder PROM: Flexion: 169 degrees, + pain at end range Abduction: 130 degrees, + pain at end range IR: 80 degrees ER: 72 degrees, + pain at end range Shoulder AROM: Upright Active elevation: ~100 with significant scapular elevation compensation. Supine: scapular compensation with flexion/abduction AROM, fatigues quickly, mild pain symptoms Treatment/Education Today: Therapeutic Exercise x 43 minutes: Includes time spent on objective measures noted above UBE x 6 minutes, seat 4, Level 2.0 Claire x 4 minutes flexion/abduction with 5 sec hold at end range Supine AAROM flexion, abduction, ER x 10 reps x 5 sec hold each Supine Flexion to 90 AROM x 10 reps SL Shoulder Abduction to 90 AROM x 10 reps, required assistance with last 5 reps due to fatigue PROM Abduction x 20 reps SL ER x 10 reps, able to complete full AROM Shoulder submax isometrics flexion, internal rotation, abduction x 10 reps x 5 sec hold Timed Code Treatment Minutes: 43 Total Treatment Minutes: 43 Current Home Exercise Program List: Access Code: [email or web address] Exercises - Supine Shoulder Abduction AAROM with Dowel (Mirrored) - 2 x daily - 7 x weekly - 10-15 reps - Supine Shoulder External Rotation in 45 Degrees Abduction AAROM with Dowel (Mirrored) - 2 x daily- 7 x weekly - 10-15 reps - Sidelying Shoulder External Rotation (Mirrored) - 1 x daily - 7 x weekly - 3 sets - 10 reps - Shoulder Flexion Overhead with Dowel (Mirrored) - 2 x daily - 7 x weekly - 10- 15 reps - Standing Isometric Shoulder Flexion with Doorway - 2 x daily - 7 x weekly - 10 reps - 5 sec hold - Standing Isometric Shoulder Internal Rotation at Doorway - 2 x daily - 7 x weekly - 10 reps - 5 sec hold - Standing Isometric Shoulder Abduction with Doorway (Mirrored) - 2 x daily - 7 x weekly - 10 reps - 5 sec hold ASSESSMENT/PROGRESS TOWARD GOALS: Patient returns to physical therapy 9 weeks s/p R RTC Repair. Demonstrates improved ROM of R shoulder. Continues to demonstrate ROM and strength deficits consistent with current post-op status. Able to progress to standing flexion AAROM without compensation, initiated sub-max isometrics to assist with tolerance for AROM and standing AAROM. She would continue to benefit from skilled [...] Progress per protocol. Progress AAROM/AROM as able, hold strengthening until week 11 per orders documented in this encounter Plan of Treatment Not on file documented as of this encounter Visit Diagnoses Diagnosis Stiffness of right shoulder joint- Primary Aftercare following surgery of the musculoskeletal system Aftercare following surgery of the musculoskeletal system, NEC documented in this encounter Care Teams Dietist Relationship Specialty Start Date End Date Jessica Trejo PA-C [address] [place] [address] PCP - General 12/19/15 documented as of this encounter
--- OUTSIDE RECORDS SUMMARY | 2023-10-04 09:08 | XMS_ITS | Encounter Summary ---
Author Organization [employer] Address [address] [place] [address] Care Team Providers Care Program Management Specialist Name Role Phone JoannaMeliza zafarJessicasantana Plascencia PA-C Primary Care Provider [phone] Reason for Visit * Reason Comments Shoulder Problem Encounter Details Date Type Department Care Team (Late st Contact Info) Description 06/26/2023 11:30 AM AUTOMOBILE MECHANIC HELPER Therapy [facility] [address] [facility] [address] [place], [place] [id number] Mitali Sotomayor, PT [address] [facility] [place], [place] [address] Stiffness of right shoulder joint (Primary Dx); Poor posture; Aftercare following surgery of the musculoskeletal system [...] as of this encounter Progress Notes * Mitali Sotomayor, PT - 06/26/2023 11:30 AM CST Physical Therapy Post-Op Shoulder Evaluation/Plan of Care Visit Number: 1 Medicare BCBS: Other Initial Certification Period: 06/26/2023 to 09/24/23 Referring Provider: Clayton Olson [facility] Referring Diagnosis: R shoulder pain Date of Surgery: 05/29/23 Surgical Procedure: R shoulder arthroscopy with SAD and RCR Orders: Evaluate & treat and PROM: 4-8 weeks; AAROM at 8 weeks; Hold on strengthening until 11 weeks Precautions/Contraindications: per protocol Date of Onset: April 2023 Standardized Functional Scores at initial evaluation: Quick Dash: 61.4% (higher scores represent greater disability History: Has always had a sore shoulder and had 2 cortisone shots. Son recommended trying a chiropractor and the following day from the initial injury and they recommended she see an MD. Went to at [facility] in [place] and had an MRI in [place] and while looking for her car she tripped in the parking lot and fell on her R side. After the MRI she was able to see her orthopedic surgeon and they recommended surgery immediately. Lives alone but her fiance is with her 3-4 days a week. R handed Method of Injury: opening the freezer at [place] and as a tray of cookies came out she jerked backwards and had a lot of pain in her R shoulder Functional Limitations: reaching, lifting, sleeping, writing, washing and drying her hair Patient's Therapy Goals: return to PLOF SUBJECTIVE: Pain Ratin/10 Falls in the Past Year: Yes, unknown if it influences her already sore shoulder Past Medical History: See EMR for details regarding past medical history, medications and drug allergies. Review of Systems: Denies fever, chills, night sweats, unrelenting night pain, unexplained weight loss, bowel/bladder changes, saddle sensation changes Past Medical History: Diagnosis Date Essential hypertension [...] KNEE ARTHROPLASTY Left 05/16/2022 TUBAL LIGATION 1977 OBJECTIVE: General: Mood, orientation and behavior were appropriate. Patient was alert and oriented. Posture/Alignment: rounded shoulders and arm in standard sling. Patient states she has one from after surgery but has trouble donning it but will bring it to her second appointment. Cervical Screening: wnl Shoulder PROM: Flexion: 60 deg Abduction: 70 deg IR: to stomach ER: neutral @ 45 deg abd Joint mobility: GH: guarded Flexibility: Not tested Neurological Screen: Dermatomes: Sensation intact Strength: not tested Palpation: mild scapular wingning R Functional Tests: Hands behind head restricted/painful. Hands behind back restricted/painful. Hands on opposite shoulders restricted/painful. TREATMENT TODAY: Physical Therapy Evaluation (CPT 28383): An evaluation was performed. The patient was determined tohave low complexity based on history, examination, clinical presentation of the patient and the PT's clinical decision making. The patient was educated on the condition, planned therapy intervention and expectations from treatment. Goals were a collaborative effort of the therapist and patient. Therapeutic Exercise (CPT 27389) x 26 minutes: . Access Code: [email or web address] URL: [email or web address] Date: 06/26/2023 Prepared by: Mitali Stoomayor Exercises - Standing 'L' Stretch at Counter - 1-3 x daily - 7 x weekly - 10 reps - Shoulder Abduction Towel Slide at Table Top - 1-3 x daily - 7 x weekly - 10 reps - Seated Shoulder External Rotation AAROM with Dowel (Mirrored) - 1 x daily - 7 x weekly - 10 reps - Seated Shoulder Rolls - 1 x daily - 7 x weekly - 10 reps Timed Code Treatment Minutes: 26 Total Treatment Minutes: 40 Medicare Unit Trackin Plan for next treatment session: progress with PROM and scapular mobility and stability Education/Handouts: Diagnosis Education, Post-op restrictions, RICE principles, Use of sling Response to treatment: Good understanding of HEP, Good understanding of post-op instructions ASSESSMENT: Therapist Impression: Patient presents 4 weeks s/p R shoulder RCR with SAD and expected limitationsof ROM and posture. Discussed shoulder positioning with pillow in the recliner to aid in sleeping as she was educated on the importance of sleep in recovery. Tolerated interventions well and was comfortable with HEP. Would benefit from skilled intervention to address above impairments and return topain free activities. Barriers to Learning: none Rehab Prognosis: Excellent PLAN: Planned Intervention/Education: Evaluation, Re-Evaluation, Education, Therapeutic Exercise, Manual Therapy, Neuromuscular Re-education, Self Care/Home Management, Gait Training, Therapeutic Activities, Isokinetic/Performance Testing, Aquatic THerapy, Ice, Heat, Ultrasound, Vasopneumatic Compression, E- Stim: Unattended PT Frequency/Duration: 1 x/week for 12 weeks for a total of 12 visits Discharge Plan: Goal achievement, goal achievement with home exercise program or if progress plateaus. Informed Consent: Risks, benefits and alternatives to treatment have been explained. Patient and/orfamily in agreement with care plan. EXPECTED FUNCTIONAL OUTCOMES/GOALS: HEP/Independent Management: Demonstrate independence with HEP and self- management following each treatment session ADL's: Resume previous sleep pattern without awakening due to symptoms in 2-3 weeks. Perform home management tasks with ease in 8-10 weeks. Dress, including don and doff shirt and pants with ease in 4-8 weeks. Don/doff sling without assistance in 1-2 weeks. Outcomes: Improve Functional outcome score to at least 20% in 12 weeks. Evaluation and Plan of Care completed by: Mitali Sotomayor, PT 11:33 AM 06/26/2023 The card tape converter operator is completed by the therapist and the referring clinician's electronic signature certifies medical necessity for the plan above. MOBILE MECHANIC HELPER documented in this encounter Plan of Treatment Not on file documented as of this encounter Visit Diagnoses Diagnosis Stiffness of right shoulder joint- Primary Poor posture Abnormal posture Aftercare following surgery of the musculoskeletal system Aftercare following surgery of the musculoskeletal system, NEC documented in this encounter Care Teams Program Management Specialist Relationship Specialty Start Date End Date Jessica Trejo PA-C [address] [place] [address] PCP - General 12/19/15 documented as of this encounter
--- OUTSIDE RECORDS SUMMARY | 2023-10-04 09:08 | XMS_ITS | Encounter Summary ---
Author Organization [employer] Address [address] [place] [address] Care Team Providers Care Hoe Runner Name Role Phone JoannaMeliza zafarJessicasantana Plascencia PA-C Primary Care Provider [phone] Reason for Visit * Reason Comments Shoulder Problem Encounter Details Date Type Department Care Team (Late st Contact Info) Description 08/28/2023 10:00 AM CDT Therapy [facility] [address] [facility] [place], [place] [address] Mitali Sotomayor, PT [address] [place] [address] Stiffness of right shoulder joint (Primary Dx); [...] Progress Notes * Mitali Sotomayor, PT - 08/28/2023 10:00 AM CDT Physical Therapy Progress Note Visit Number: 4 Initial Certification Period: 06/26/2023 to 09/24/23 Referring Provider: Clayton Olson Date of Surgery: 05/29/23 Surgical Procedure: R shoulder arthroscopy with SAD and RCR Visit Diagnosis: 1. Stiffness of right shoulder joint 2. Aftercare following surgery of the musculoskeletal system Precautions: Evaluate & treat and PROM: 4-8 weeks; AAROM at 8 weeks; Hold on strengthening until 11 weeks SUBJECTIVE: Having increased pain in her R shoulder two days ago while driving and points to the anterior and lateral deltoid. OBJECTIVE Current Objective Findings: Increased shoulder elevation with AROM Shoulder PROM: Flexion: 160 degrees, + pain at end range Abduction: 154 degrees, + pain at end range IR: 80 degrees ER: 72 degrees Shoulder AROM: Supine Flexion: 145 degrees, + pain at end range Supine: scapular compensation with flexion/abduction AROM, fatigues quickly, mild pain symptoms Treatment/Education Today: Therapeutic Exercise x 40 minutes: Supine Flexion AAROM with clasped hands x 10 reps Supine chest pull/ER x 10, orange band SL Abduction to 90 AROM x 5 reps, therapist assist SL ER x 1 sets x 10 reps x 0# Standing Abduction AAROM using dowel - unable to perform without scapular elevation - improved withtherapist assist and support to the arm Standing abduction PROM - working on scapular depression Shoulder AAROM - using dowel, 5 x 5 sec -extension -behind the body lateral shift -IR up the back Timed Code Treatment Minutes: 40 Total Treatment Minutes: 40 Current Home Exercise Program List: Access Code: [email or web address] Exercises - Supine Shoulder Flexion with Dowel [...] TOWARD GOALS: Patient returns to physical therapy 13 weeks s/p R RTC Repair. Emphasis and focus today on scapulardepression and application of it with movement. Will add shoulder isometrics next session. She would continue to benefit from skilled physical therapy services to address continued deficits in order to return patient to previous level of function, however patient is limiting number of visits due tocopay costs. Spaced visits out to every other week [...] NEC documented in this encounter Care Teams Hoe Runner Relationship Specialty Start Date End Date Jessica Trejo PA-C [address] [place] [address] PCP - General 12/19/15 documented as of this encounter
--- OUTSIDE RECORDS SUMMARY | 2023-10-04 09:08 | XMS_ITS | Encounter Summary ---
Author Organization [employer] Address [address] [place] [address] Care Team Providers Care Commercial Assistant Name Role Phone JoannaMeliza zafarJessicasantana Plascencia PA-C Primary Care Provider [phone] Reason for Visit * Reason Comments Shoulder Problem Encounter Details Date Type Department Care Team (Late st Contact Info) Description 08/07/2023 10:00 AM CDT Therapy [facility] [address] [facility] [place], [place] [address] Mitali Sotomayor, PT [address] [facility] [place], [place] [address] Stiffness of right shoulder joint (Primary Dx); Aftercare following surgery of the musculoskeletal system; Poor posture Social History Tobacco Use Types Packs/Day Years [...] Progress Notes * Mitali Sotomayor, PT - 08/07/2023 10:00 AM CDT Physical Therapy Progress Note Visit Number: 3 Initial Certification Period: 06/26/2023 to 09/24/23 Referring Provider: Clayton Olson Date of Surgery: 05/29/23 Surgical Procedure: R shoulder arthroscopy with SAD and RCR Visit Diagnosis: 1. Stiffness of right shoulder joint 2. Aftercare following surgery of the musculoskeletal system 3. Poor posture Precautions: Evaluate & treat and PROM: 4-8 weeks; AAROM at 8 weeks; Hold on strengthening until 11 weeks SUBJECTIVE: Doing very well and progression her ROM and tolerating strengthening well. Biggest struggle is curling hair. OBJECTIVE Current Objective Findings: Observation: demonstrates nearly [...] UBE x 6 minutes, seat 4, Level 2.0, alt fwd/retro every minute Standing AAROM abduction x 10 reps x 5 sec hold each Scapular stabilization, orange band, 2 x 10 each -straight arm row -bent arm row Doorway pectoral stretch 5 x 10 sec SL Shoulder Abduction to 90 AROM x 10 reps, required assistance with last 5 reps due to fatigue PROM Abduction x 20 reps SL ER x 10 reps, able to complete full AROM Shoulder submax isometrics flexion, internal rotation, abduction x 10 reps x 5 sec hold Wall walking, working on scapular depression, 2 x 5 Timed Code Treatment Minutes: 40 Total Treatment Minutes: 40 Current Home Exercise Program List: Access Code: [email or web address] Exercises - Supine Shoulder Abduction AAROM with [...] TOWARD GOALS: Patient returns to physical therapy 10 weeks s/p R RTC Repair. Focused on scapular stabilization today to aid in scapular and shoulder mechanics for improved efficiency. She would continue to benefitfrom skilled physical therapy services to address continued [...] following surgery of the musculoskeletal system, NEC Poor posture Abnormal posture documented in this encounter Care Teams Commercial Assistant Relationship Specialty Start Date End Date Jessica Trejo PA-C [address] [place] [address] PCP - General 12/19/15 documented as of this encounter
--- OUTSIDE RECORDS SUMMARY | 2023-10-04 09:08 | XMS_ITS | Patient Health Record ---
Author Organization [facility] Address [address] [place] [address] Care Team Providers Care Fish Farm Manager Name Role Phone Jessica Trejo Primary Care Provider Magrarita Yip Unavailable [phone] ALLERGIES Allergen (clinical drug ingredient) Drug/Non Drug Allergy documented on EMR Reaction Allergy Type Onset Date Status Penicillin anaphylaxis Drug Allergy Acti ve REASON FOR REFERRAL Referred Organization [facility] Referred Provider Margarita Saunders Referred Address [address],[place], [place],[address], Referral Priority Routine MEDICATIONS Medication SIG (Take, Route, Frequency, Duration) Notes Start Date End Date Status Lisinopril-hydroCHLOROthia zide Active SOCIAL HISTORY Tobacco Use: Social History Observation Description Date Smoking Status WARNING: Information temporarily unavailable Sex Assigned At : Social History Observation Description Sex Assigned At Unknown Alcohol Question Answer Notes Did you have a drink contain ing alcohol in the past year? Yes How often did you have a dri nk containing alcohol in the past year? Two to four times a month (2 points) How many drinks did you have on a typical day when you were drinking in the past year? 1 or 2 (0 points) How often did you have six o r more drinks on one occasion in the past year? Never (0 points) Points 2 Interpretation Negative Tobacco Use Question Answer Notes Are you a: nonsmoker Additional Findings: Tobacco User Never VITAL SIGNS Heart Rate 51 /min 05/28/2023 Heart rate: 49 Blood pressure diastolic 72 mm Hg 05/28/2023 Hea rt rate: 49 Height-cm 157.48 cm 05/28/2023 Heart rate: 49 Height 62 in 05/28/2023 Heart rate: 49 Blood pressure systolic 165 mm Hg 05/28/2023 Hear t rate: 49 Encounters Encounter Location Date Provider Diagnosis [facility] [address] [place] [address] 05/28/2023 Margaritaqing Wrenna [facility] [address] [place] [address] 05/28/2023 Margarita Nicky Dizziness and giddiness R42 [facility] [address] [place] [address] 05/15/2023 Margaritaqing Saunders ASSESSMENTS Encounter Date Diagnosis Assessment Notes Treatment Notes Treatment Clinical Notes 05/28/2023 Dizziness and giddiness (ICD-10 - R42) Your EEG today was normal, other than your heart rhythm. A normal EEG does not rule out epilepsy. However, together with your normal brain MRI and the description of your episode, I think it is unlikely that you had a seizure. If episodes continue to happen, please call to let me know. Your heart rate and rhythm on your EEG today was abnormal. I do think it is opossible that if you have frequent or persistent heart rhythm abnormalities, that could cause dizziness and your other symptoms. I will call and fax the print-outs I gave you to Jessica HERNANDEZ, and also to Clayton Olson MD. I will reach out to them today. Say hello to Dr. Mcleod for me! My maiden name was Kev. You can follow up with me as needed. Call with any questions - [phone]. PLAN OF TREATMENT No Information Insurance Providers Payer Name Payer Address Payer Phone Subscriber Number Group Number Insured Name Patient Relationship to Insured Coverage Start Date Coverage End Date [employer] MEDICARE ADVANTAGE [address] [address] [place] [address] [id number] Edel Reagan Self - patient is the insured MEDICAL (GENERAL) HISTORY Medical History History ICD Code Episode of disorientation Migraine with aura Dizziness Hypertension Sensorineural hearing loss Right rotator cuff injury Surgical History Surgery Date(Month/Year) Knee replacement, left Arthroscopic knee surgery X 2 Tubal ligation Hospitalization History Reason Date(Month/Year) Knee surgery
--- OUTSIDE RECORDS SUMMARY | 2023-10-04 09:08 | XMS_ITS | Clinical Summary ---
Author Organization [employer] Address [place], [place] [address] Care Team Providers Care Supervisor Inspection Room Name Role Phone Jessica Trejo PA-C Primary Care Provider [phone] Allergies Active Allergy Reactions Criticality Noted Date Comments Penicillins Anaphylaxis High 01/10/2012 Medications Medication Sig Dispensed Refills Start Date End Date Status benzonatate (TESSALON) 100 mg capsuleIndications:B ronchitis Take 1 capsule by mouth 3 times daily if needed for Cough. 20 capsule 07/05/2019 Active Social History Tobacco Use Types Packs/Day Years [...] Comments Blood Pressure 131/82 05/14/2023 9:20 PM GRAIN UNLOADER Pulse 59 05/14/2023 9:29 PM GRAIN UNLOADER Temperature 36.6 ??C (97.8 ??F) 05/14/2023 5:07 PM CS T Respiratory Rate 18 05/14/2023 5:07 PM GRAIN UNLOADER Oxygen Saturation 98% 05/14/2023 9:29 PM GRAIN UNLOADER Inhaled Oxygen Concentration - - Weight 77.1 kg (170 lb) 05/14/2023 5:07 PM GRAIN UNLOADER Height 157.5 cm (5' 2) 05/14/2023 5:07 PM GRAIN UNLOADER Body Mass Index 31.09 05/14/2023 5:07 PM GRAIN UNLOADER Plan of Treatment Health Maintenance Due Date [...] 18+ 02/05/2017 02/06/2016 Influenza for age 65+ 01/12/2024 COVID-19 vaccine series Completed 03/07/20, 03/14/2022, 09/07/2021, Additional history exists Advance Directives * Full Code (Latest Code Status on File) Date Activated Date Inactivated Comments 02/02/2016 1:08 PM 02/02/2016 4:49 PM Care Teams Supervisor Inspection Room Relationship Specialty Start Date End Date Jessica Trejo [facility] [address] [place], [place] [address] PCP - General Physician Gravel Roofer 05/14/23
--- NOTE | 2023-10-04 09:15 | MR_ITS ---
[address] [address] Phone:?[phone] Fax:?[phone] Referring Physician Information: Clayton Olson M.D. [address] [facility] [address] Phone:?[phone] Fax:?[phone] Patient:Grant Clark D.O.B:?1945 Sex:?Female Phone:?[phone] [facility] MRN:?[id number] Exam Date:?10/04/2023 EXAM: MRI of the RIGHT SHOULDER, without contrast CLINICAL INFORMATION: Female, 78 years old, with right shoulder pain. INDICATION: Evaluate for recurrent rotator cuff tear. PRIOR SURGERY: History of shoulder surgery. PLAIN FILMS: Shoulder radiographs dated 05/08/2023. COMPARISONS: Right shoulder MRI dated 05/09/2023. TECHNICAL INFORMATION: Using a 1.5T MR scanner and a localizing surface coil: coronal obliques: PD, T2, STIR sagittal obliques: PD, T2 axials: PD, T2 SEDATION: None CONTRAST: None FINDINGS: Bones: Proximal humerus: Surgical anchors in the greater tuberosity reflect rotator cuff repair, described below. No stress/occult fracture otherwise abnormal marrow signal/pathology. No humeral Hill-Sachs or reverse Hill-Sachs lesion/impaction or contusion. Glenoid: No fracture or marrow edema/pathology. No osseous Bankart lesion. Rotator cuff and muscles/tendons: Supraspinatus: Status post repair. However, there is full-width, full-thickness recurrent tearing, with tendon retraction to the level the glenohumeral joint and grade 2 muscle atrophy. Infraspinatus: Status post repair. There is moderate attenuation and irregularity of the anterior one half of the distal infraspinatus tendon fibers, although without definite residual or recurrent full-thickness tear. Grade 2 muscle atrophy is present. Teres minor: No tendinopathy, tear or atrophy. Subscapularis: Mild tendinopathy of the superior distal subscapularis without tendon tear or muscle atrophy. Deltoid: No strain or atrophy. Coracoacromial arch: Acromion morphology: Status post anterior acromioplasty for subacromial decompression, with good result. No os acromiale. Acromiohumeral space: The acromiohumeral space is within normal limits. Coracohumeral space: The coracohumeral space is within normal limits. Acromioclavicular joint: Joint: Mild AC joint arthropathy, without significant inferior osteophytosis or evidence of supraspinatus impingement. Ligaments: Coracoclavicular ligaments are intact. Bursae: Subacromial-subdeltoid: Moderate subacromial-subdeltoid bursal fluid, which reflects accumulation from the full-thickness rotator cuff tear. Subcoracoid: No convincing subcoracoid bursal thickening/bursitis. Biceps tendon: Mild-moderate tendinopathy of the intra-articular biceps long head tendon without split/tear. The tendon is not displaced from the bicipital groove. Glenohumeral joint: Effusion/cyst: Moderate glenohumeral joint effusion. Articular cartilage: Humeral head: Mild thinning of the humeral head articular cartilage, with mild inferomedial marginal osteophytosis. Glenoid: Mild thinning of the glenoid articular cartilage, with mild anterior marginal osteophytosis. Loose bodies: No discrete intra-articular body within the joint. Labrum:?No discrete labral tear or paralabral cyst identified on this non- arthrographic study. Inferior glenohumeral ligament/axillary pouch:?Intact. The axillary pouch is normal in thickness and signal. No evidence of adhesive capsulitis or capsular injury. IMPRESSION: 1. Status post supraspinatus & infraspinatus tendon repairs: -Full width, full-thickness recurrent tearing of supraspinatus, with tendon retraction to level the glenohumeral joint and grade 2 muscle atrophy. -Moderate attenuation and irregularity of the anterior distal infraspinatus tendon fibers, without definite recurrent full-thickness tear. 2. Mild subscapularis tendinopathy, without tear. This is unchanged compared to the prior study dated 05/09/2023. 3. Mild-moderate tendinopathy of the intra-articular biceps long head tendon, without split/tear. This is unchanged compared to prior study. 4. Mild osteoarthritis of the glenohumeral joint with a moderate joint effusion that extends into the subacromial-subdeltoid bursa. 5. Status post anterior acromioplasty for subacromial decompression, good result. While there is mild AC joint arthropathy, there is no evidence of impingement at the AC joint. 6. No labral tear or paralabral cyst. BC Electronically signed on 10/04/2023 11:12:00 AM by Jc Barclay M.D.
== END 2023-10-04 09:05 | disposition home or self-care (01) ==
LOC: MRI 09:05
PROVIDERS: Visit Provider Orthopaedic Surgery Sports Medicine
DX: M25.511 Pain in right shoulder (principal); M75.101 Unspecified rotator cuff tear or rupture of right shoulder, not specified as traumatic; M19.011 Primary osteoarthritis, right shoulder; M25.411 Effusion, right shoulder; Z98.890 Other specified postprocedural states
CPT/HCPCS: 73221

== ENCOUNTER 2024-06-24 08:59 | Day surgery (SDC) | payer MEDICARE, SELFPAY ==
[2024-06-24] VITALS (22 sets, daily range): BP systolic 94–154; BP diastolic 49–93; PULSE 50–76; RESP 1–18; TEMP 35.9–36.8; O2SAT 92–100; BMI 35.8
[2024-06-24] MEDS: OXYCODONE (CR) 10 MG TAB.ER.12H PO (06:44)
[2024-06-24] MEDS: fentaNYL 100 MCG/2 ML inj IVP (06:44)
[2024-06-24] MEDS: MIDAZOLAM HCL 1 MG/ML inj IVP (06:44)
[2024-06-24] MEDS: ACETAMINOPHEN 500 MG TABLET 1000 MG PO ×3 (06:44→22:56)
[2024-06-24] MEDS: LACTATED RINGERS 1000 ML 1,000 ML 100 ML IV (06:45)
--- OUTSIDE RECORDS SUMMARY | 2024-06-24 09:05 | XMS_ITS | Encounter Summary ---
Author Organization [facility] Address [address] [place] [address] Care Team Providers Care Show Host Or Hostess Name Role Phone Dejan Trejo PA-C Primary Care Provider [phone] Reason for Referral * Procedure/Equipment (Routine) - Incomplete Specialty Diagnoses / Procedures Referred By Mily t Referred To Contact Diagnoses Post-menopausal Procedures DXA Bone Density Spine/Hip Dejan Trejo PA-C [address] [place] [address] Phone: tel: fax: Referral ID Status Reason Start Date Expiration Date V isits Requested Visits Authorized [id number] Incomplete 06/18/2024 09/17/2025 1 1 [employer] Reason for Visit * Reason Comments PRE-OP EXAM Medicare Annual Wellness Encounter Details Date Type Department Care Team (Late st Contact Info) Description 06/18/2024 11:30 AM CO [employer] [facility] [address] [place], [place] [id number] Dejan Trejo PA-C [address] [place], [place] [phone] Encounter for Medicare annual wellness exam (Primary Dx); Preop examination; Primary osteoarthritis of right knee; Essential hypertension (HRC); Obesity, Class II, BMI 35-39.9 (HRC); Osteopenia, unspecified location; Post-menopausal Social History Tobacco Use Types Packs/Day Years Used Date Smoking Tobacco: Never Passive Smoke Exposure: Never Smokeless Tobacco: Never Alcohol Use Standard Drinks/Week Comments Yes 1 (1 standard drink = 0.6 oz pur e alcohol) monthly PHQ-2 Answer Date Recorded PHQ-2 Score 0 06/18/2024 Comments No Sex and Gender Information Value Date Recorded Sex Assigned at Not on file Legal Sex Female 4:49 AM CDT Gender Identity Not on file Sexual Orientation Not on file Occupation Industry Job Start Date Job End Date Retired Not on file Not on file Not on file documented as of this encounter Last Filed Vital Signs Vital Sign Reading Time Taken Comments Blood Pressure 129/71 06/18/2024 11:19 AM CO [employer] Pulse 56 06/18/2024 11:19 AM CO [employer] Temperature - - Respiratory Rate - - Oxygen Saturation - - Inhaled Oxygen Concentration - - Weight 86 kg (189 lb 9.6 oz) 06/18/2024 11:19 AM CO [employer] Height 156.5 cm (5' 1.61) 06/18/2024 11:[address] Body Mass Index 35.11 06/18/2024 11:19 AM CO [employer] documented in this encounter Patient Instructions * Patient Instructions* Dejan Trejo PA-C - 06/18/2024 11:30 AM CO [employer] Annual Wellness Visit Summary Your care team is recommending the following tests, procedures or services. Some of these recommendations may not be fully covered by Medicare or your insurance. If you have questions, check with your insurance to determine coverage before completing these services. Health Maintenance Due Health Maintenance Due Topic Date Due ??? Dexa 11/15/2017 ??? RSV (1 - 1-dose 75+ series) Never done ??? Zoster/Shingles (3 of 3) 10/16/2021 If your Medicare Welcome or Annual Wellness Visit is showing you are due in the above list, this will be updated after this visit. You had this completed today and are not due for another year. Thank you for coming in for your Medicare Wellness Visit. To make sure we are doing our best to meet your care needs, here are a few important reminders. We want to know your thoughts as we work together to create your care plan, including stopping and starting medications. When we work together on next steps, it's called shared decision making. If there is anything else you would like to discuss, please reach out or schedule a follow-up appointmentif needed. We are here to listen. We want to help you address any concerns you have about the cost of your medications. To find options for the most cost-effective medications near you, go to https://www.ARCsys/hp/pharmacy/drug-cost/index.html You can also find more information in this handout. Health care can be complicated. Sometimes, it can help to share your health information with your family or caregivers. (Caregivers can be friends as well as family.) How much you share is up to you.Here is a helpful link: https://www.ARCs[employer]/blog/awhexq-fjoq-roxbr-benefits/ We care about nutrition, how much physical activity you get and how much stress, worry or sadness you have in your life. Please reach out to your care team if you have additional information to shareor would like more resources or support. lisinopril-hydroCHLOROthiazide (PRINZIDE) 20-12.5 MG tablet [[id number]] - Do not take on morning of procedure. naproxen sodium (ANAPROX) 220 MG tablet [[id number]] - Do not take for 7 days prior to procedure. Follow your individualized medication recommendations as described above. In addition, please stop all snwg-ryx-oegyojg medications including aspirin, ibuprofen (Advil, Motrin), naproxen [...] health-related equipment or devices you use daily [employer] documented in this encounter Progress Notes * Dejan Trejo PA-C - 06/18/2024 11:30 AM CSTAddended by: DEJAN TREJO on: 06/18/2024 12:02 PM Modules accepted: Level of Service [employer] * Dejan Trejo PA-C - 06/18/2024 11:30 AM CSTAddended by: DEJAN TREJO on: 06/20/2024 11:56 AM Modules accepted: Level of Service [employer] * Dejan Trejo PA-C - 06/18/2024 11:30 AM CST Medicare Annual Wellness Visit Subjective/Historical: Edel Clark is a 78 y.o. old female Chief Complaint Patient presents with PRE-OP EXAM Medicare Annual Wellness Current Concerns: None Advance Directives: On File Observed Vitals: BP 129/71 (BP Location: Right Arm, BP Cuff Size: Large) Pulse (!) 56 Ht 5' 1.61 (1.565m) Wt 189 lb 9.6 oz (86 kg) BMI 35.11 kg/m?? Physical Exam: General Appearance: alert, well [...] for future preventive services in Patient Instructions. Dejan Trejo PA-C 06/18/2024, 12:02 PM [employer] documented in this encounter OR Notes * H&P - Dejan Trejo PA-C - 06/18/2024 11:30 AM CST Pre-Operative Assessment 06/18/2024 Pre-Op Assessment Procedure Details Procedure Right Total Knee Replacement Surgeon Ronen Olson MD Location Other Other Location Name [facility] Procedure Date 06/24/2024 Morena Hollingsworth is a 78 y.o. old female here for pre-operative evaluation for procedure noted above. Indication: Ongoing RIGHT knee pain worse over the last 2 months secondary to osteoarthritis. Patient Active Problem List Diagnosis Date Noted Obesity, Class II, BMI 35-39.9 ([facility]) 06/18/2024 Primary osteoarthritis of right knee 06/18/2024 Mixed hyperlipidemia (HRC) 07/15/2019 Osteopenia 07/15/2019 Essential hypertension (HRC) 07/10/2016 Past Medical History: Diagnosis Date Essential hypertension [...] Date BREAST BIOPSY Right benign breast lump CATARACT REMOVAL Bilateral 02/202402/19/24-LE & 03/05/24-RE KNEE SURGERY Bilateral arthroscopic meniscal repair ROTATOR CUFF REPAIR Right 05/29/2023 TOTAL KNEE ARTHROPLASTY Left 05/16/2022 TUBAL LIGATION 1977 Current Outpatient Medications Medication Instructions lisinopril-hydroCHLOROthiazide (PRINZIDE) 20-12.5 MG tablet 1 Tablet, Oral, DAILY naproxen sodium (ANAPROX) 220 mg, Oral, BID WITH MEALS Allergies Allergen Reactions Penicillins Anaphylaxis Social History Occupational History 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 Patient is postmenopausal. Family History Problem Relation Name Age of Onset Cancer, Breast Mother 60 mets to brain Coronary Artery Disease Father Coronary Artery Disease Brother Cancer Brother stomach? Diabetes Brother type II Stroke Brother 52 Kidney Disorder Brother Nephritis, s/p kidney transplant, BP issues Diabetes, Type II Daughter Cancer, Ovary Negative Family History Anesthesia Reaction Negative Family History Review of Systems: 02/14/2024 ET Amb PreOp Assessment Sx Have you [...] are you sleepy during the day? Yes, snores on occasion, not tired during the day, no dx of JENNIE Do you have any symptoms due to a recent concussion? No Do you or close relatives have bleeding or clotting problems? No Have you taken Aspirin, Ibuprofen (Advil) or Naproxen (Aleve) in the last 7 days? No, last dose of naproxen was taken on 06/17/24 Do you or close relatives have a history of a severe or life-threatening reaction to anesthesia? No Estimated Functional Capacity: Can you climb one flight of stairs, or walk up a gradual uphill without stopping? yes, functional capacity is more than or equal to 4 METS Objective BP 129/71 (BP Location: Right Arm, BP Cuff Size: Large) Pulse (!) 56 Ht 5' 1.61 (1.565 m) Wt189 lb 9.6 oz (86 kg) BMI 35.11 kg/m?? Physical Exam: General Appearance: alert, well [...] breath sounds throughout, and normal respiratory effort Extremities: no edema Skin: no rashes or worrisome lesions Neurologic: normal speech, no facial droop, alert and oriented x 3, normal gait, and cranial nerves2 -12 intact Data: Labs: Yes: CBC, Cr, Na, K. Lab Visit on 06/18/2024 Component Date Value Ref Range Status WBC 06/18/2024 4.8 3.5 - 10.5 x10(9)/L Final RBC 06/18/2024 4.56 3.90 - 5.03 x10(12)/L Final Hemoglobin 06/18/2024 13.8 12.0 - 15.5 g/dL Final HCT 06/18/2024 42.4 34.9 - 44.5 % Final MCV 06/18/2024 93.0 80.0 - 100.0 fL Final MCH 06/18/2024 30.3 27.6 - 33.3 pg Final MCHC 06/18/2024 32.5 31.5 - 35.2 g/dL Final RDW 06/18/2024 13.9 11.9 - 15.5 % Final Platelets 06/18/2024 145 (L) 150 - 450 x10(9)/L Final Creatinine 06/18/2024 0.75 0.55 - 1.02 mg/dL Final GFR, Estimated 06/18/2024 >60 >60 mL/min/1.73m2 Final Sodium 06/18/2024 140 136 - 145 mmol/L Final Potassium 06/18/2024 4.1 3.5 - 5.1 mmol/L Final Pre-Op Visit on 06/18/2024 Component Date Value Ref Range Status Ventricular Rate 06/18/2024 47 BPM Final Atrial Rate 06/18/2024 47 BPM Final P-R Interval 06/18/2024 164 ms Final QRS Duration 06/18/2024 96 ms Final QT 06/18/2024 466 ms Final QTC 06/18/2024 412 ms Final P Voltaire 06/18/2024 53 degrees Final R Voltaire 06/18/2024 9 degrees Final T Voltaire 06/18/2024 4 degrees Final ECG: Yes, today-06/18/24: Sinus bradycardia, rate: 47 bpm. No significant changes when compared to previous ECG on 05/09/22. Assessment/Plan Patient is medically optimized for planned procedure(s). ICD-10-CM 1. Encounter for Medicare annual wellness exam Z00.00 2. Preop examination Z01.818 Complete Blood Count-No Diff ECG 12 Lead (Clinical Laser Beam Cutter to perform) 3. Primary osteoarthritis of right knee M17.11 4. Essential hypertension (HRC) I10 lisinopril-hydroCHLOROthiazide (PRINZIDE) 20-12.5 MG tablet Creatinine / GFR Sodium Potassium 5. Obesity, Class II, BMI 35-39.9 (HRC) E66.812 6. Osteopenia, unspecified location M85.80 7. Post-menopausal Z78.0 DXA Bone Density Spine/Hip Special risks: None Medication recommendations: Patient Instructions Annual Wellness Visit Summary Your care team is recommending the following tests, procedures or services. Some of these recommendations may not be fully covered by Medicare or your insurance. If you have questions, check with your insurance to determine coverage before completing these services. Health Maintenance Due Health Maintenance Due Topic Date Due Dexa 11/15/2017 RSV (1 - 1-dose 75+ series) Never done Zoster/Shingles (3 of 3) 10/16/2021 If your Medicare Welcome or Annual Wellness Visit is showing you are due in the above list, this will be updated after this visit. You had this completed today and are not due for another year. Thank you for coming in for your Medicare Wellness Visit. To make sure we are doing our best to meet your care needs, here are a few important reminders. We want to know your thoughts as we work together to create your care plan, including stopping and starting medications. When we work together on next steps, it's called shared decision making. If there is anything else you would like to discuss, please reach out or schedule a follow-up appointmentif needed. We are here to listen. We want to help you address any concerns you have about the cost of your medications. To find options for the most cost-effective medications near you, go to https://www.ARCsys/hp/pharmacy/drug-cost/index.html You can also find more information in this handout. Health care can be complicated. Sometimes, it can help to share your health information with your family or caregivers. (Caregivers can be friends as well as family.) How much you share is up to you.Here is a helpful link: https://www.[employer]Cs[employer]/blog/qsgbyx-fyob-ddyry-benefits/ We care about nutrition, how much physical activity you get and how much stress, worry or sadness you have in your life. Please reach out to your care team if you have additional information to shareor would like more resources or support. lisinopril-hydroCHLOROthiazide (PRINZIDE) 20-12.5 MG tablet [[id number]] - Do not take on morning of procedure. naproxen sodium (ANAPROX) 220 MG tablet [[id number]] - Do not take for 7 days prior to procedure. Follow your individualized medication recommendations as described above. In addition, please stop all pske-utz-lghwbzx medications including aspirin, ibuprofen (Advil, Motrin), naproxen [...] devices you use daily Electronically signed by: Dejan Trejo PA-C 06/18/2024, 12:02 PM [employer] documented in this encounter Plan of Treatment Scheduled Orders Name Type Priority Associated Diagnoses Orde r Schedule DXA Bone Density Spine/Hip Imaging New Routine Post-menopausal Expected: 06/18/2024 (Approximate), Expires: 06/18/2025 documented as of this encounter Procedures Procedure Name Priority Date/Time Associated Diagnosis Comments ECG 12 LEAD OUTPATIENT Routine 06/18/2024 11:56 AM CO [employer] Preop examination documented in this encounter Results * Potassium (06/18/2024 12:06 PM CO [employer]) Potassium 4.1 3.5 - 5.1 mmol/L 06/18/2024 2:55 PM CO [employer] [facility] Blood Venipuncture / Unknown 06/18/2024 12:06 PM CO [employer] 06/18/2024 12:06 PM CO [employer] us Dejan Trejo PA-C LAB_1 Final Resul t [facility] [address] [place] [address], [facility] * Sodium (06/18/2024 12:06 PM CO [employer]) Sodium 140 136 - 145 mmol/L 06/18/2024 2:55 PM CO [employer] [facility] Blood Venipuncture / Unknown 06/18/2024 12:06 PM CO [employer] 06/18/2024 12:06 PM CO [employer] us Dejan Trejo PA-C LAB_1 Final Resul t Performing Organization Address [facility] Co de Phone Number [address] * Creatinine / GFR (06/18/2024 12:06 PM CO [employer]) Creatinine 0.75 0.55 - 1.02 mg/dL 06/18/2024 2:55 PM CO [employer] [facility] GFR, Estimated >60 >60 mL/min/1.7 3m2 06/18/2024 2:55 PM CO [employer] [facility] Blood Venipuncture / Unknown 06/18/2024 12:06 PM CO [employer] 06/18/2024 12:06 PM CO [employer] Dejan Trejo PA-C LAB_1 Final Resul t Performing Organization Address [facility] de Phone Number [address] * (ABNORMAL) Complete Blood Count-No Diff (06/18/2024 12:06 PM CO [employer]) WBC 4.8 3.5 - 10.5 x10(9)/L 06/18/2024 12:15 PM CO [employer] [facility] RBC 4.56 3.90 - 5.03 x10(12)/L 06/18/2024 12:15 PM CO [employer] [facility] Hemoglobin 13.8 12.0 - 15.5 g/dL 06/18/2024 12:15 PM CO [employer] [facility] HCT 42.4 34.9 - 44.5 % 06/18/2024 12:15 PM CO [employer] [facility] MCV 93.0 80.0 - 100.0 fL 06/18/2024 12:15 PM CO [employer] [facility] MCH 30.3 27.6 - 33.3 pg 06/18/2024 12:15 PM CO [employer] [facility] MCHC 32.5 31.5 - 35.2 g/dL 06/18/2024 12:15 PM CO [employer] [facility] RDW 13.9 11.9 - 15.5 % 06/18/2024 12:15 PM CO [employer] [facility] Platelets 145(L) 150 - 450 x10(9)/L 06/18/2024 12:15 PM CO [employer] [facility] Blood Venipuncture / Unknown 06/18/2024 12:06 PM CO [employer] 06/18/2024 12:06 PM CO [employer] Dejan Trejo PA-C LAB_1 Final Resul t Performing Organization Address [facility] Co de Phone Number [facility] [address] [place] [address], [facility] * ECG 12 Lead (Clinical Laser Beam Cutter to perform) (06/18/2024 11:56 AM CO [employer]) Ventricular Rate 47 BPM [facility] Atrial Rate 47 BPM [facility] P-R Interval 164 ms [facility] QRS Duration 96 ms [facility] QT 466 ms [facility] QTC 412 ms [facility] P Voltaire 53 degrees [facility] R Voltaire 9 degrees [facility] T Voltaire 4 degrees [facility] 06/18/2024 11:5 6 AM CO [employer] Narrative [facility] - 06/18/2024 1:08 PM CO [employer] Sinus bradycardia with sinus arrhythmia Otherwise normal ECG When compared with ECG of 09-MAY-2022 14:03, No significant change was found Confirmed by [employer] ([id number]) on 06/18/2024 1:08:49 PM Procedure Note [employer] [facility] MD - 06/18/2024 Sinus bradycardia with sinus arrhythmia Otherwise normal ECG When compared with ECG of 09-MAY-2022 14:03, No significant change was found Confirmed by [employer] ([id number]) on 06/18/2024 1:08:49 PM Dejan rTejo PA-C PN ECG ORDERABLES Final Res ult Performing Organization Address City/[facility]/ZIP Co de Phone Number [facility] [address] [place] [address] documented in this encounter Visit Diagnoses Diagnosis Encounter for Medicare annual wellness exam- Primary Preop examination Preoperative examination, unspecified Primary osteoarthritis of right knee Primary localized osteoarthrosis, lower leg Essential hypertension (HRC) Unspecified essential hypertension Obesity, Class II, BMI 35-39.9 (HRC) Obesity, unspecified Osteopenia, unspecified location Post-menopausal Asymptomatic postmenopausal status (age-related) (natural) documented in this encounter Care Teams Show Host Or Hostess Relationship Specialty Start Date End Date Dejan Trejo PA-C [address] [place] [address] PCP - General 12/19/15 documented as of this encounter
--- NOTE | 2024-06-24 09:58 | W.PM.H&PU ---
History & Physical Update History & Physical Update H&P Reviewed and patient assessed: No changes noted
[2024-06-24] MEDS: SODIUM CHLORIDE 0.9 % (FLUSH) 10 ML SYRINGE IVF (10:06)
--- NOTE | 2024-06-24 10:36 | SUR.PREOP ---
TIME?OUT:?1028 right knee c Scott Quiroga RN pt and consent PT/RN/MDA?VERIFICATION?OF?SURGICAL?SITE,?PROCEDURE,?AND?CONSENT OBTAINED?PRIOR?TO?INVASIVE?PROCEDURE.102
[2024-06-24] MEDS: CEFAZOLIN 2 GM in 0.9 % SODIUM CHLORIDE Mini-bag 100 ML IVPB ×2 (11:15→16:56)
[2024-06-24] MEDS: TRANEXAMIC ACID 100 MG/ML INJ 1000 MG IV (11:15)
--- NOTE | 2024-06-24 11:52 | W.PM.NB ---
Nerve Block Nerve Block Time Seen by Provider: 10:30 Date Seen: 06/24/24 Type of block requested by surgeon for post-operative analgesia: adductor canal Side: right Time out performed: Yes Verification of patient name: Yes Verification of date of : Yes Site marking: site marked Name of person performing procedure: Scott Continuous monitoring Was continuous monitoring of O2 sat, B/P, cardiac nurse, recorded every 15 minutes?: Yes Procedure Checklist: sterile prep, needles and gloves Ultrasound guided. Images saved: Yes Medications given in 5ml increments after negative aspiration: Marcaine %: 0.25 mL: 15 Needle gauge: 20 Precedex (mcg): 25 Patient tolerated procedure well: Yes Block Charges Block Charge (with Pro Fee): Femoral Nerve Use of Ultrasound Machine for Block: Yes- US Guidance/pain block
--- NOTE | 2024-06-24 11:53 | W.PM.NB ---
Nerve Block Nerve Block Time Seen by Provider: 10:30 Date Seen: 06/24/24 Type of block requested by surgeon for post-operative analgesia: geniculars Side: right Time out performed: Yes Verification of patient name: Yes Verification of date of : Yes Site marking: site marked Name of person performing procedure: Scott Continuous monitoring Was continuous monitoring of O2 sat, B/P, pvc monitor, recorded every 15 minutes?: Yes Procedure Checklist: sterile prep, needles and gloves Ultrasound guided. Images saved: Yes Medications given in 5ml increments after negative aspiration: Marcaine %: 0.25 mL: 9 Needle gauge: 25 Patient tolerated procedure well: Yes Block Charges Block Charge (with Pro Fee): Genicular Nerve Block
--- NOTE | 2024-06-24 11:53 | W.ANESCHARGE ---
Anesthesia Charges Start Date/Time Anesthesia Start Date: 06/24/24 Anesthesia Start Time: 11:01 Stop Date/Time Anesthesia Stop Date: 06/24/24 Anesthesia Stop Time: 13:34 Summary Extremes of Age - Over 70 or under 1: MDA Coding CPT Codes CPT Codes: ANESTH KNEE ARTHROPLASTY - 85194 ([id number]) P2 - PATIENT W/MILD SYST DISEASE, QK - BEAN SPROUT GROWER 2-4 CNCRNT ANES PROC, QX - PAVING [employer]EMAN SVC W/ MD MED DIRECTION Additional Codes: Summary - Extremes of Age - Over 70 or under 1: MDA ([id number])
--- NOTE | 2024-06-24 12:34 | PM.ORPRC ---
Procedure Note Date of procedure: 06/24/24 Procedure: PREOPERATIVE DIAGNOSIS: 1. Right knee osteoarthritis, primary, severe POSTOPERATIVE DIAGNOSIS: 1. Right knee osteoarthritis, primary, severe PROCEDURE: 1. Right total knee arthroplasty - subvastus SURGEON: Clayton Olson MD. COAT CHECK ATTENDANT: Mahamed Wilder PA-C - Of note, a skilled chiropractor assistant was critical for this case to aid in patient positioning, tissue retraction, limb manipulation/positioning, and closure. ANESTHESIA: Spinal anesthetic IMPLANTS: DePuy J&J all cemented TKA - Attune PS femur size 4 narrow Size 3 tibia 5 mm poly spacer 35 mm patella TOURNIQUET: 90 min at 300 torr EBL: 50 ml COMPLICATIONS: None evident INDICATIONS: The patient is a pleasant 78-year-old female who has experienced severe right knee pain and difficulty bearing weight. Workup included x-rays which revealed severe osteoarthrosis in the knee. Given the deformity, the dysfunction, and the pain, as well as the failure of nonoperative management, recommendation was made for surgery. FINDINGS: Full-thickness chondral loss diffusely throughout the medial and patellofemoral compartments. To lesser degree lateral compartment. Degenerative meniscus pathology medial greater than lateral. Moderate effusion upon entering the joint. DESCRIPTION OF PROCEDURE: Following a thorough discussion of risks, benefits, and alternatives consent was obtained and the right knee was marked. The patient was brought to the operating room and placed supine on the operating table. Induction of anesthesia was undertaken. 2 g IV Ancef and 1 g tranexamic acid was administered within 1 hr of incision preoperatively. Proper time-out was performed identifying proper patient, site, procedure. The operative extremity was prepped and draped in the appropriate sterile fashion using ChloraPrep after the patient was positioned supine with all bony prominences well padded. A longitudinal, anterior, midline skin incision was made starting approximately 3cm proximal to the superior pole of the patella and advanced distal to the tibial tubercle. A subvastus approach was utilized. A medial subperiosteal sleeve was created with knife, allen elevator and curved osteotome. The retropatellar fatpad was resected and the synovium in the suprapatellar pouch excised to visualize the anterior femoral cortex. Femoral preparation was performed via an intramedullary guide. Step drill allowed access into the femoral canal. The distal cutting guide was placed with 6 ? of valgus and 11 mm cut on the distal femur due to a 10?+ flexion contracture. Femur was sized using a posterior referencing guide in 3? of external rotation. This found have a best fit with the sizing noted above. The 4 in 1 cutting block was then placed, and the distal femur shaped accordingly. The box cut was then created and the trial implant inserted to confirm appropriate fit. We turned our attention to the proximal tibia. Extramedullary guide was utilized for cutting with the goal of being 90 degree cut from the mechanical axis of the tibia in the varus/valgus plane utilizing tibial crest as the primary alignment. Initially a 2 mm resection was performed from the medial tibial plateau. Ultimately, balancing was achieved in both flexion and extension in both varus and valgus. The knee was able to achieve full extension as well comfortably. The patella was initially measured and found have a thickness of 22 mm. It was resected back to approximately 14 mm. It was sized to be a best fit with as noted above. This was drilled, trial placed. All trials were placed and found to have an excellent stability and balance. At this stage, trial implants were removed, the knee was thoroughly irrigated with normal saline, and the cement was mixed. After irrigation, the knee was thoroughly dried, and cement placed, with the real tibial and femoral implants placed along with the patella. Trial poly spacer was placed and confirmed to have excellent range of motion and full extension, and the real poly spacer opened and inserted. All extra cement was removed, and a 3 min Betadine soak performed. Finally, a final irrigation round with normal saline was performed. Closure performed with 0 Vicryl and #0 Stratafix for the quad tendon/retinaculum. 2-0 Vicryl for the subcutaneous and 4-0 Stratafix for subcuticular closure. Dressings were applied and the patient was awoken from anesthesia after the tourniquet deflated and transferred the PACU in stable condition. A skilled chiropractor assistant was critical for this case to aid in patient positioning, tissue retraction, bone exposure, limb manipulation/positioning, patient safety, and closure. PLAN: 1. Weight bear as tolerated operative extremity. 2. 23 hr perioperative antibiotics. 3. Ice. 4. PT/OT consults for ambulation assistance/mobility education. 5. Social work consult for discharge planning. 6. DVT prophylaxis with at SCDs and aspirin twice daily.
--- NOTE | 2024-06-24 13:34 | W.ANESCHARGE ---
Anesthesia Charges Start Date/Time Anesthesia Start Date: 06/24/24 Anesthesia Start Time: 11:01 Stop Date/Time Anesthesia Stop Date: 06/24/24 Anesthesia Stop Time: 13:34 Coding CPT Codes CPT Codes: ANESTH KNEE ARTHROPLASTY - 38788 ([id number]) P2 - PATIENT W/MILD SYST DISEASE, QK - EYELET MAKER 2-4 CNCRNT ANES PROC, QX - HEALTH AND SAFETY INSPECTOR SVC W/ MD MED DIRECTION
--- NOTE | 2024-06-24 14:07 | SUR.PHASEI ---
patient met discharge criteria per anesthesia
[2024-06-24] MEDS: HYDROmorphone 0.5 mg/0.5 ml inj IVP ×2 (14:45→16:57)
[2024-06-24] MEDS: OXYCODONE 5 MG TABLET PO ×3 (16:06→22:58)
[2024-06-24] MEDS: OMEPRAZOLE 20 MG CAPSULE DR PO (16:09)
[2024-06-24] MEDS: ONDANSETRON 2 MG/ML inj 4 MG IVP ×2 (16:30→23:51)
[2024-06-24 17:14] LABS: Troponin I* < 0.01 ng/mL (0.01-0.04)
--- NOTE | 2024-06-24 17:33 | PM.IMCN1 ---
Date of Consult Patient: Other Consult date: 06/24/24 Requesting Physician: Orthopedics Primary Care Provider: Not a Local Provider Consult Narrative Narrative: Edel Clark is a 78 year old female admitted to the hospital for right total knee arthroplasty. Procedures performed by Dr. Olson. No complications. Estimated blood loss of 50 mL. Postoperatively patient reports she is generally doing well. Pain is adequately controlled. No chills or dyspnea or nausea. Preoperatively she reports that she has been doing well except for an episode yesterday. Later yesterday while she was at home she had a episode of right anterior chest pain radiating back towards her shoulder blade. This came on without obvious trigger and went away without obvious factors causing it to go away. It lasted about 5 minutes. It was fairly severe. She did not have nausea or diaphoresis. Prior to this episode she did have some epigastric discomfort and nausea which was also self-limited. She has not previously had problems like this. She has not had a history of heart disease, lung disease, biliary disease, reflux or other gastrointestinal problems. He has had no other recent illness. Review of Systems Narrative: Generally feeling well except for as noted above. [facility] Medical History (Updated 06/24/24 @ 17:44 by Arjun oCnway MD) Pulmonary nodule ?R91.1 - Solitary pulmonary nodule (ICD-10) Prediabetes ?R73.03 - Prediabetes (ICD-10) Osteopenia ?M85.80 - Other specified disorders of bone density and structure, unspecified site (ICD-10) Hyperlipidemia ?E78.5 - Hyperlipidemia, unspecified (ICD-10) Obesity ?E66.9 - Obesity, unspecified (ICD-10) Hypertension ?I10 - Essential (primary) hypertension (ICD-10) Osteoarthritis of left knee ?M17.12 - Unilateral primary osteoarthritis, left knee (ICD-10) Surgical History (Updated 06/24/24 @ 17:44 by Arjun Conway MD) History of arthroplasty of right knee ?Z96.651 - Presence of right artificial knee joint (ICD-10) History of arthroscopy of right shoulder (05/29/23) ?Z98.890 - Other specified postprocedural states (ICD-10) History of tubal ligation ?Z98.51 - Tubal ligation status (ICD-10) History of breast biopsy ?Z98.890 - Other specified postprocedural states (ICD-10) Status post total knee replacement, 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 Recently high school friend, Josh and they live together in [facility]. She does not smoke. She rarely drinks alcohol. 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 What is your current living situation?: I presently have a place to live In the past 12 months, utilities in danger of being shut off: no In past 12 months, lack of transportation kept you from medical appts, meetings, work, or getting things needed for daily living: no In the past 12 mos, have been you worried that your food would run out before you had money to buy more?: never true In the past 12 mos, the food you bought just didn't last and you didn't have money to buy more?: never true Highest level of school completed/degree received: Bachelor's degree Smoking Status: Never smoker Do you use any of these nicotine containing products: None Second hand tobacco smoke exposure: No How often do you have a drink containing alcohol: monthly or less Alcohol type: wine How many standard drinks containing alcohol do you have on a typical day: 1 or 2 How often do you have six or more drinks on one occasion: Never AUDIT-C Alcohol total score: 1 Non-prescribed substance use: denies use Caffeine: Yes How often does anyone, including family, friends and others, physically hurt you: never How often does anyone, including family, friends and others, insult or talk down to you: never How often does anyone, including family, friends and others, threaten you with harm: never How often does anyone, including family, friends and others, scream or curse at you: never Are you using contraception or practicing any form of control: No service: No Meds Home Medications and Allergies Home Medications ?Medication ?Instructions ?Recorded ?Confirmed ?Type lisinopril 20 1 tab PO DAILY 03/30/22 06/24/24 History mg-hydrochlorothiazide 12.5 mg tablet naproxen sodium 220 mg tablet 220 mg PO BID PRN 11/06/22 06/24/24 History (Aleve) Allergies Allergy/AdvReac Type Severity Reaction Status Date / Time Penicillins Allergy throat Verified 06/24/24 10:03 swelling Exam Narrative: Exam Narrative: She is alert and appears in no distress. Oropharynx normal. Respirations are clear to auscultation. Cardiovascular: S1, S2, regular rate and rhythm. No murmur gallop or rub. Abdomen is soft without tenderness or mass. Const: Vital Signs, click to edit/add: Vital Signs - 24 hr 06/24/24 10:01 06/24/24 10:35 06/24/24 10:43 Temperature 98.3 F Pulse Rate 61 53 L 53 L Respiratory Rate 18 18 1 L Blood Pressure 134/91 H 115/54 L 103/53 L Pulse Oximetry 94 96 96 Oxygen Delivery Me thod Room Air Nasal Cannula Nasal Cannula Oxygen Flow Rate 3 3 06/24/24 10:55 06/24/24 13:30 06/24/24 13:35 Temperature 97.2 F L 97.2 F L Pulse Rate 53 L 60 54 L Respiratory Rate 1 L 13 14 Blood Pressure 94/53 L 117/71 130/67 Pulse Oximetry 96 95 100 Oxygen Delivery Me thod Nasal Cannula Room Air Room Air Oxygen Flow Rate 3 06/24/24 13:40 06/24/24 13:45 06/24/24 13:50 Temperature 97.2 F L 97.2 F L 97.2 F L Pulse Rate 60 51 L 53 L Respiratory Rate 12 12 12 Blood Pressure 132/74 128/75 119/69 Pulse Oximetry 100 98 98 Oxygen Delivery Me thod Room Air Room Air Room Air Oxygen Flow Rate 06/24/24 13:55 Temperature 97.1 F L Pulse Rate 51 L Respiratory Rate 13 Blood Pressure 131/58 L Pulse Oximetry 98 Oxygen Delivery Me thod Room Air Oxygen Flow Rate Documenting provider has reviewed patient's vital signs: yes Labs Labs: Cardiac Enzymes 06/24/24 Range/Units 16:05 Troponin I < 0.01 L (0.01-0.04) ng/mL Assessment and Plan Assessment and plan (1) History of arthroplasty of right knee: Problem comment: Dr. Olson, 06/24/2024, no complications. Anticipate routine management of pain, therapy and discharge to home tomorrow. Status: Acute (2) Chest pain: Problem comment: Brief episode of chest pain on June 23 2024, prior to admission. Lasted 5 minutes and radiated to her right scapula. Do cardiac evaluation, other considerations include gastroesophageal reflux and biliary disease. Follow symptoms and further evaluation depending on clinical course Status: Acute Plan Patient is admitted to the hospital for surgery and postoperative care including therapy, pain management and disposition planning. Will also do evaluation for episode of chest pain yesterday. Monitor other chronic medical problems. Total time spent today is 40 minutes in reviewing records, discussing with patient and ongoing evaluation management of problems.
[2024-06-24 17:47] LABS: Albumin* 4.2 g/dL (3.3-5.0)
[2024-06-24 17:50] LABS: Alkaline Phosphatase* 60 U/L (40-150); Aspartate Amino Transferase* 23 U/L (12-35); Bilirubin Direct* 0.3 mg/dL (0.0-0.5); Bilirubin Total* 0.5 mg/dL (0.1-1.5); Total Protein* 7.2 g/dL (6.0-8.3)
[2024-06-24 17:51] LABS: Alanine Aminotransferase* 13 U/L (4-35); Lipase* 57 U/L (23-300)
--- NOTE | 2024-06-24 19:37 | PC.NURSE ---
End of shift: patient alert and oriented. VSS, on RA tolerating a reg. diet. Emesis epi x1 Zofran admin x1 see emar. Patient rates pain 4-5/10. PRN dilauded and oxy administered w/relief. Patient voiding well. up to chair for meals and using walker to ambulate to Chair and BR. LSC to auscultation. Bowel sounds active. dressing to right knee is C/D/I. Active ice to right knee.
[2024-06-24] MEDS: SENNOSIDES 1 TAB TABLET 2 TAB PO (21:04)
[2024-06-24] MEDS: ASPIRIN 81 MG TABLET EC PO (21:04)
[2024-06-25] MEDS: OXYCODONE 5 MG TABLET PO ×4 (02:13→10:57)
[2024-06-25] MEDS: CEFAZOLIN 2 GM in 0.9 % SODIUM CHLORIDE Mini-bag 100 ML IVPB ×2 (02:15→09:50)
[2024-06-25 02:24] VITALS: BP 114/58; PULSE 73; RESP 20; TEMP 37.8; O2SAT 92
[2024-06-25 04:13] VITALS: TEMP 37.7
[2024-06-25] MEDS: ACETAMINOPHEN 500 MG TABLET 1000 MG PO ×2 (04:13→09:47)
[2024-06-25 04:30] VITALS: O2SAT 85
[2024-06-25 05:45] VITALS: O2SAT 93
--- NOTE | 2024-06-25 06:15 | PC.NURSE ---
Addendum entered by Francheska Mcclure RN 06/25/24 06:20: Dressing to right knee clean, dry and intact. Original Note: Shift note ([id number]): Patient pleasant, alert and oriented. Ambulated with wheeled walker, gait belt and assist of one. Scheduled Tylenol and PRN Oxycodone given for pain in right knee rated 1-7/10. Zofran given x1 for c/o nausea this shift.?
[2024-06-25] MEDS: OMEPRAZOLE 20 MG CAPSULE DR PO (06:30)
[2024-06-25 06:50] LABS: Basophils Absolute Auto 0.02 K/uL (0.00-0.30); Basophils Percent Auto 0.3 % (0.0-3.0); Hematocrit 36.9 % (33.0-51.0); Lymphocytes Percent Auto 17.1 % (20-44); Mean Corpuscular HGB Conc 33 gm/dL (32-36); Mean Corpuscular Hemoglobin 31 pg (26-34); Mean Corpuscular Volume 94 fL (80-100); Monocytes Percent Auto 11.4 % (0.0-11.0); Neutrophils Absolute Auto 5.55 K/uL (1.7-7.0); Neutrophils Percent Auto 71.2 % (42.0-72.0); Platelet Count* 149 K/uL (140-440); RDW Coefficient of Variation % 13.6 % (11.5-15.5); Red Blood Count 3.94 m/uL (4.00-5.20); White Blood Count* 7.79 K/uL (4.50-11.00)
[2024-06-25 06:53] LABS: Slide Review Reflex No
[2024-06-25 07:00] VITALS: BP 120/78; PULSE 86; RESP 18; TEMP 36.7; O2SAT 93
[2024-06-25 07:05] LABS: Potassium* 3.6 mmol/L (3.6-5.1); Sodium* 135 mmol/L (135-149)
[2024-06-25 07:08] LABS: Blood Urea Nitrogen* 20 mg/dL (7-30); Creatinine* 0.7 mg/dL (0.5-1.5); Est. Creatinine Clearance* 35.55; Estimated Glomerular Filt Rate 89 ml/min
[2024-06-25] MEDS: hydroCHLOROthiazide 12.5 MG CAPSULE PO (09:47)
[2024-06-25] MEDS: lisinopriL 20 MG TABLET PO (09:47)
[2024-06-25] MEDS: ASPIRIN 81 MG TABLET EC PO (09:47)
[2024-06-25] MEDS: SENNOSIDES 1 TAB TABLET 2 TAB PO (09:48)
--- NOTE | 2024-06-25 11:55 | PC.NURSE ---
Discharge: patient alert and oriented x4. Afebrile, VSS, on RA and tolerating a reg. diet. Patient denies N/V/SOB. Rates pain 4/10 PRN oxy administered prior to therapy with relief. Active Ice to op site. Dressing to Right knee C/D/I. IV removed intact. Discharged to home accompanied by spouse at 1132. Discharge instructions given and signed. Patient verbalized understanding of instructions. belongings sheet signed.
--- NOTE | 2024-06-25 12:04 | PM.IMPN1 ---
Progress Note: A&P Assessment and plan (1) History of arthroplasty of right knee: Problem details: Dr. Olson, 06/24/2024, no complications. Anticipate routine management of pain, therapy and discharge to home tomorrow. Status: Acute (2) Chest pain: Problem details: Brief episode of chest pain on June 23 2024, prior to admission. Lasted 5 minutes and radiated to her right scapula. Do cardiac evaluation, other considerations include gastroesophageal reflux and biliary disease. Cardiac evaluation here included EKG which showed nonspecific ST-T changes but otherwise no acute ischemic changes. Troponin was undetectable. LFTs were normal. Current plan would be to return to the hospital for recurrent symptoms. Trial omeprazole for 1-2 weeks for possible GERD. If recurrent symptoms would need further evaluation. Status: Acute Plan Discharge to home with for outpatient follow-up. Total time spent today is 25 minutes in coordination of care discussing with patient and other providers management of symptoms from knee surgery and her episode of chest pain Subjective Date Seen: 06/25/24 Interval history: Edel Clark is a 78 year old female admitted to the hospital for right total knee arthroplasty. Procedures performed by Dr. Olson. No complications. Estimated blood loss of 50 mL. Postoperatively patient reports she is generally doing well. Pain is adequately controlled. No chills or dyspnea or nausea. Preoperatively she reports that she has been doing well except for an episode yesterday. Later yesterday while she was at home she had a episode of right anterior chest pain radiating back towards her shoulder blade. This came on without obvious trigger and went away without obvious factors causing it to go away. It lasted about 5 minutes. It was fairly severe. She did not have nausea or diaphoresis. Prior to this episode she did have some epigastric discomfort and nausea which was also self-limited. She has not previously had problems like this. She has not had a history of heart disease, lung disease, biliary disease, reflux or other gastrointestinal problems. He has had no other recent illness. 06/25/2024: She slept poorly last night. She has not had any further episodes of chest or back pain. She has not have any nausea. No unusual exertional dyspnea. Primary concern is ongoing of right knee pain. She is making progress with therapy. Exam Narrative: Exam Narrative: She is alert and appears in no distress. Breathing is unlabored. Knee with mild swelling consistent with her postoperative status. She has intact sensation and motion distally. No marked edema and no significant tenderness with palpation over her right leg. Const: Vital Signs, click to edit/add: Vital Signs - 24 hr 06/24/24 13:30 06/24/24 13:35 06/24/24 13:40 Temperature 97.2 F L 97.2 F L 97.2 F L Pulse Rate 60 54 L 60 Pulse Rate [Right Pulse Oximeter] Respiratory Rate 13 14 12 Blood Pressure 117/71 130/67 132/74 Blood Pressure [Ri ght Arm] Pulse Oximetry 95 100 100 Oxygen Delivery Me thod Room Air Room Air Room Air Oxygen Flow Rate 06/24/24 13:45 06/24/24 13:50 06/24/24 13:55 Temperature 97.2 F L 97.2 F L 97.1 F L Pulse Rate 51 L 53 L 51 L Pulse Rate [Right Pulse Oximeter] Respiratory Rate 12 12 13 Blood Pressure 128/75 119/69 131/58 L Blood Pressure [Ri ght Arm] Pulse Oximetry 98 98 98 Oxygen Delivery Me thod Room Air Room Air Room Air Oxygen Flow Rate 06/24/24 14:00 06/24/24 14:15 06/24/24 14:30 Temperature 97.7 F 97.6 F 97.7 F Pulse Rate 50 L 50 L 58 L Pulse Rate [Right Pulse Oximeter] Respiratory Rate 16 16 16 Blood Pressure 134/93 H 134/75 136/71 Blood Pressure [Ri ght Arm] Pulse Oximetry 97 96 98 Oxygen Delivery In thod Room Air Room Air Room Air Oxygen Flow Rate 06/24/24 14:45 06/24/24 15:00 06/24/24 15:00 Temperature 97.3 F L Pulse Rate 54 L Pulse Rate [Right Pulse Oximeter] Respiratory Rate 16 16 Blood Pressure 151/78 H Blood Pressure [Ri ght Arm] Pulse Oximetry 97 98 98 Oxygen Delivery Me thod Room Air Room Air Oxygen Flow Rate 06/24/24 15:00 06/24/24 15:30 06/24/24 16:00 Temperature 97.7 F 96.7 F L 97.6 F Pulse Rate 53 L 53 L 60 Pulse Rate [Right Pulse Oximeter] Respiratory Rate 18 18 18 Blood Pressure 144/75 H 154/72 H 146/83 H Blood Pressure [Ri ght Arm] Pulse Oximetry 95 99 93 Oxygen Delivery Me thod Room Air Room Air Room Air Oxygen Flow Rate 06/24/24 17:00 06/24/24 18:00 06/24/24 19:00 Temperature 97.6 F 97.6 F Pulse Rate 64 69 76 Pulse Rate [Right Pulse Oximeter] Respiratory Rate 18 18 Blood Pressure 146/49 H 132/67 148/74 H Blood Pressure [Ri ght Arm] Pulse Oximetry 93 97 92 Oxygen Delivery Me thod Room Air Room Air Room Air Oxygen Flow Rate 06/24/24 20:00 06/24/24 23:00 06/24/24 23:00 Temperature 98.0 F Pulse Rate 71 Pulse Rate [Right Pulse Oximeter] Respiratory Rate 16 18 Blood Pressure 136/59 L Blood Pressure [Ri ght Arm] Pulse Oximetry 96 93 93 Oxygen Delivery Me thod Room Air Room Air Oxygen Flow Rate 06/24/24 23:00 06/25/24 02:24 06/25/24 04:13 Temperature 98.2 F 100.1 F H 99.8 F H Pulse Rate Pulse Rate [Right Pulse Oximeter] 74 73 Respiratory Rate 18 20 Blood Pressure Blood Pressure [Ri ght Arm] 127/61 114/58 L Pulse Oximetry 93 92 Oxygen Delivery Me thod Room Air Room Air Oxygen Flow Rate 06/25/24 04:30 06/25/24 05:45 06/25/24 07:00 Temperature Pulse Rate Pulse Rate [Right Pulse Oximeter] Respiratory Rate Blood Pressure Blood Pressure [Ri ght Arm] Pulse Oximetry 85 L 93 93 Oxygen Delivery Me thod Room Air Nasal Cannula Oxygen Flow Rate 0.5 06/25/24 07:00 06/25/24 07:00 06/25/24 07:00 Temperature 98.0 F Pulse Rate Pulse Rate [Right Pulse Oximeter] 86 86 Respiratory Rate 18 18 18 Blood Pressure Blood Pressure [Ri ght Arm] 120/78 Pulse Oximetry 93 93 Oxygen Delivery Me thod Room Air Nasal Cannula Oxygen Flow Rate Documenting provider has reviewed patient's vital signs: yes Labs Labs: Laboratory Results - last 24 hr 06/24/24 06/25/24 16:05 06:19 WBC 7.79 RBC 3.94 L Hgb 12.0 Hct 36.9 MCV 94 MCH 31 MCHC 33 RDW Coeff of Gio 13.6 Plt Count 149 Neut % (Auto) 71.2 Lymph % (Auto) 17.1 L Traill % (Auto) 11.4 H Eos % (Auto) 0.0 Baso % (Auto) 0.3 Neut # (Auto) 5.55 Lymph # (Auto) 1.30 Traill # (Auto) 0.90 Eos # (Auto) 0.00 Baso # (Auto) 0.02 Abs Immat Gran (auto) 0.00 Imm/Tot Granulo (auto) 0.0 Sodium 135 Potassium 3.6 BUN 20 Creatinine 0.7 Estimated Creat Clear 35.55 Estimated GFR 89 Total Bilirubin 0.5 Direct Bilirubin 0.3 AST 23 ALT 13 Alkaline Phosphatase 60 Troponin I < 0.01 L Total Protein 7.2 Albumin 4.2 Lipase 57
--- NOTE | 2024-06-25 14:47 | PM.ORPN ---
Subjective Subjective Date Seen: 06/25/24 Principal diagnosis: Status postop day 1 right total knee arthroplasty Interval history: Patient reports doing okay. Acute events overnight include nausea and vomiting, which was treated and now resolved. They believe this was due to IV Dilaudid. She is doing well with oxycodone. Pain managed with scheduled and PRN medications, ice. DVT prophylaxis: 81 mg aspirin by mouth twice daily, SCDs, walking. Denies fevers, chills, aches, N/V, CP, SOB/FRANKS, or lightheadedness. Ortho Exam Narrative Exam Narrative: -Patient appears comfortable; no apparent acute distress. I met her in the physical therapy room -Alert and oriented times 3 -Operative knee mildly swollen; soft tissues supple; no ecchymosis; no erythematous streaking Warmth appropriate -Surgical dressing clean, dry, intact; no drainage -Bilateral calfs soft; no significant swelling, edema, tenderness, erythema, discoloration, warmth, or palpable cords -2+ DP/PT pulses, intact dermatomes and myotomes distally (5/5 strength) Const Vital Signs, click to edit/add: Vital Signs - 24 hr 06/24/24 15:00 06/24/24 15:00 06/24/24 15:00 Temperature 97.7 F Pulse Rate 53 L Pulse Rate [Right Pulse Oximeter] Respiratory Rate 16 18 Blood Pressure 144/75 H Blood Pressure [Right Arm] Pulse Oximetry 98 98 95 Oxygen Delivery Method Room Air Room Air Oxygen Flow Rate 06/24/24 15:30 06/24/24 16:00 06/24/24 17:00 Temperature 96.7 F L 97.6 F 97.6 F Pulse Rate 53 L 60 64 Pulse Rate [Right Pulse Oximeter] Respiratory Rate 18 18 18 Blood Pressure 154/72 H 146/83 H 146/49 H Blood Pressure [Right Arm] Pulse Oximetry 99 93 93 Oxygen Delivery Method Room Air Room Air Room Air Oxygen Flow Rate 06/24/24 18:00 06/24/24 19:00 06/24/24 20:00 Temperature 97.6 F 98.0 F Pulse Rate 69 76 71 Pulse Rate [Right Pulse Oximeter] Respiratory Rate 18 16 Blood Pressure 132/67 148/74 H 136/59 L Blood Pressure [Right Arm] Pulse Oximetry 97 92 96 Oxygen Delivery Method Room Air Room Air Room Air Oxygen Flow Rate 06/24/24 23:00 06/24/24 23:00 06/24/24 23:00 Temperature 98.2 F Pulse Rate Pulse Rate [Right Pulse Oximeter] 74 Respiratory Rate 18 18 Blood Pressure Blood Pressure [Right Arm] 127/61 Pulse Oximetry 93 93 93 Oxygen Delivery Method Room Air Room Air Oxygen Flow Rate 06/25/24 02:24 06/25/24 04:13 06/25/24 04:30 Temperature 100.1 F H 99.8 F H Pulse Rate Pulse Rate [Right Pulse Oximeter] 73 Respiratory Rate 20 Blood Pressure Blood Pressure [Right Arm] 114/58 L Pulse Oximetry 92 85 L Oxygen Delivery Method Room Air Room Air Oxygen Flow Rate 06/25/24 05:45 06/25/24 07:00 06/25/24 07:00 Temperature Pulse Rate Pulse Rate [Right Pulse Oximeter] 86 Respiratory Rate 18 Blood Pressure Blood Pressure [Right Arm] Pulse Oximetry 93 93 Oxygen Delivery Method Nasal Cannula Oxygen Flow Rate 0.5 06/25/24 07:00 06/25/24 07:00 Temperature 98.0 F Pulse Rate Pulse Rate [Right Pulse Oximeter] 86 Respiratory Rate 18 18 Blood Pressure Blood Pressure [Right Arm] 120/78 Pulse Oximetry 93 93 Oxygen Delivery Method Room Air Nasal Cannula Oxygen Flow Rate Assessment and Plan Assessment and plan (1) History of arthroplasty of right knee: Problem details: Dr. Olson, 06/24/2024, no complications. Anticipate routine management of pain, therapy and discharge to home tomorrow. Status: Acute (2) Chest pain: Problem details: Brief episode of chest pain on June 23 2024, prior to admission. Lasted 5 minutes and radiated to her right scapula. Do cardiac evaluation, other considerations include gastroesophageal reflux and biliary disease. Cardiac evaluation here included EKG which showed nonspecific ST-T changes but otherwise no acute ischemic changes. Troponin was undetectable. LFTs were normal. Current plan would be to return to the hospital for recurrent symptoms. Trial omeprazole for 1-2 weeks for possible GERD. If recurrent symptoms would need further evaluation. Status: Acute Plan - Complete 23 hour perioperative antibiotics. - PT/OT consult for education and assistance. - Social work consult for discharge planning - Prescribed analgesics as needed - DVT prophylaxis: 81 mg aspirin by mouth twice daily, walking, and SCDs - Anticipation is for discharge to home with family today 06/25/2024 if the patient remains medically stable, pain is controlled, and they are safe with mobilization.
--- NOTE | 2024-06-25 15:17 | PC.SOCIAL ---
Discharge planning: Pt requested home care PT after her right knee replacement surgery. Pt requested [facility] in [place] as pt lives in [place], [place] and pt stated she already has an appointment set-up for tomorrow(06/26/24) and that the agency just needed the orders. Pt provided this worker with all the contact information for the agency. scaffold worker faxed the face sheet, [id number] home care orders, medication list and discharge summary to [facility] at fax #[phone]. The phone number for [facility] is #[phone]. The provider put on the home care orders that the physical therapist can assess for an occupational therapy need, if warranted. Pt will discharge home today with her . Social work to follow-up as needed.
== END 2024-06-25 11:32 | disposition home or self-care (01) ==
LOC: OR 09:02 → MEDSURG 09:03
PROVIDERS: Family Medicine; Visit Provider Orthopaedic Surgery Sports Medicine
PROC: (CPT 27447; principal; 2024-06-24 11:00)
DX: M17.11 Unilateral primary osteoarthritis, right knee (principal); G89.18 Other acute postprocedural pain; R07.9 Chest pain, unspecified; R11.2 Nausea with vomiting, unspecified; R73.03 Prediabetes; I10 Essential (primary) hypertension; E66.812 Obesity, class 2; Z68.35 Body mass index [BMI] 35.0-35.9, adult; M85.80 Other specified disorders of bone density and structure, unspecified site; E78.5 Hyperlipidemia, unspecified
CPT/HCPCS: 27447; 01402; 36415; 64447; 64454; 73560; 76942; 80076; 82565; 83690; 84132; 84295; 84484; 84520; 85025; 93005; 97110; 97116; 97161; 97165; 97530; 97535; 99100; A9270; C1776; J0665; J0690; J1171; J2250; J2405; J2704; J3010; J7120